=== PATIENT | female | born 1995 | race Caucasian/White ===

== ENCOUNTER 2022-08-02 15:41 | Emergency (ER) | payer OTHER, SELFPAY ==
[2022-08-02 15:54] VITALS: BP 114/62; PULSE 93; RESP 16; TEMP 37.3; O2SAT 99
--- NOTE | 2022-08-02 16:59 | ED.URI ---
HPI - URI/Sore Throat General Chief Complaint: Upper Respiratory Infection Stated Complaint: Sore Throat/Fever/Cough Time Seen by Provider: 08/02/22 16:59 Source: patient and RN notes reviewed Mode of arrival: ambulatory Limitations: no limitations History of Present Illness HPI Narrative: 27-year-old female presenting for complaint headache, body aches, sinus pressure/congestion, cough, fever/chills. onset 2 days ago. Symptoms worsened yesterday. She denies shortness of breath, wheezing, nausea, vomiting, diarrhea. She is taking DayQuil for symptoms. MD elicited complaint: cough Related Data Home Medications Medication Instructions Recorded Confirmed No Home Medications 08/02/22 08/02/22 Allergies Allergy/AdvReac Type Severity Reaction Status Date / Time No Known Allergies Allergy Verified 08/02/22 16:50 Review of Systems Review of Systems: ROS per HPI Exam Narrative: GENERAL: Ill-appearing, nontoxic EYES: PERRLA, conjunctivae clear ENT: Mucous membranes moist. TMs pearly alvarado with dull light reflex bilaterally; no tragal tenderness. Oropharynx normal without lesions or exudate, no drooling, no hoarseness, no trismus, uvula midline. CHEST: Clear to auscultation, breath sounds equal. No wheezing, rhonchi, rales, or stridor. No respiratory distress, speaks in full sentences. HEART: Regular rate and rhythm. No murmur heard. SKIN: Warm, dry, no rash. NEURO: Alert and oriented x3. PSYCH: Normal mood and affect Course Course Emergency Course: Patient is aware of diagnosis, understands and agrees to treatment plan. Anticipatory guidance given. Patient agrees to follow-up as directed and is aware of reasons to seek care at the emergency department. Portions of this record may have been created with voice recognition software Level of Care: Express Care Visit Vital Signs Vital signs: Vital Signs Temperature 99.1 F 08/02/22 15:54 Pulse Rate 93 08/02/22 15:54 Respiratory Rate 16 08/02/22 15:54 Blood Pressure 114/62 08/02/22 15:54 Pulse Oximetry 99 08/02/22 15:54 Oxygen Delivery Room Air 08/02/22 15:54 Temperature 99.1 F 08/02/22 15:54 Pulse Rate 93 08/02/22 15:54 Respiratory Rate 16 08/02/22 15:54 Blood Pressure 114/62 08/02/22 15:54 Pulse Oximetry 99 08/02/22 15:54 Oxygen Delivery Room Air 08/02/22 15:54 reviewed MDM - URI/Sore Throat MDM Narrative Medical decision making narrative: influenza positive. Advised supportive measures and signs/symptoms to go to the ER. Pt is appropriate for outpt treatment and f/u. Differential Diagnosis Differential diagnosis: Likely upper respiratory infection, sinusitis and viral infection Lab Data Labs: Influenza A Screen Positive Reference Range: Negative Influenza B Screen Negative Reference Range: Negative Discharge Plan Discharge Clinical Impression: Influenza Patient Disposition: Home, Self-Care Condition: Stable Instructions: Influenza (ED) Additional Instructions: Influenza positive You should avoid crowds until you are fever free for 24 hours without the use of fever reducing medications, or the symptoms are improved Rest. Drink plenty of fluids. Tylenol 1000mg every 8 hours as needed for pain/fever Recommend Flonase spray and Zyrtec (or Claritin/Maeve) for sinus pressure/congestion over the counter Cough syrup may cause drowsiness; avoid driving or take it at night time. Follow up with your primary care provider as needed in 1-2 weeks Go to the ER for worsening symptoms or concerns Prescriptions: No Action No Home Medications Follow-up/Referrals: PHYSICIAN,MANDOLIN REPAIRER [Primary Care Provider] - Stand Alone Forms: Work/School Release IP Time of Disposition: 17:05
== END 2022-08-02 17:09 | disposition home or self-care (01) ==
PROVIDERS: Emergency Provider Nurse Practitioner Family
DX: J10.1 Influenza due to other identified influenza virus with other respiratory manifestations (principal); Z20.822 Contact with and (suspected) exposure to COVID-19
CPT/HCPCS: 87426; 87804; 99213; C9803; G0463

== ENCOUNTER 2022-11-11 11:04 | Emergency (ER) | payer OTHER, SELFPAY ==
--- NOTE | ~2022-11-11 | XR_ITS ---
EXAMINATION: XR foot LT min 3V DATE: 11/11/2022 11:35 INDICATION: Lateral left foot pain post fall down stairs TECHNIQUE: Dorsoplantar, two oblique and lateral views of the left foot were obtained. COMPARISON: None. FINDINGS: Oblique extra-articular fracture of the mid to distal diaphysis of the left fifth metatarsal. There i s 3 mm dorsal medial displacement with minimal plantar/lateral angulation. Alignment is otherwise nor mal. No other fractures identified. Joint spaces are normal. Soft tissue swelling at the lateral fore foot. IMPRESSION: 1. Mildly displaced and minimally angulated extra articular oblique diaphyseal fracture of the left f ifth metatarsal. Reviewed, dictated and finalized at location A. RITIES LENDING TRADER IMPRESSION: 1. Mildly displaced and minimally angulated extra articular oblique diaphyseal fracture of the left fifth metatarsal.
[2022-11-11 11:25] VITALS: BP 130/75; PULSE 77; RESP 18; TEMP 36.6; O2SAT 97
--- NOTE | 2022-11-11 11:28 | ED.LOWEXIN ---
HPI - Extremity Injury (Lower) General Chief Complaint: Extremity Injury, Lower Stated Complaint: left foot injury History of Present Illness HPI Narrative: patient presents with left foot injury. Patient states she tripped over her dog early this am and now has left foot pain. worse with ambulation. Related Data Home Medications Medication Instructions Recorded Confirmed escitalopram oxalate 20 mg tablet 20 mg PO DAILY 11/11/22 11/11/22 Allergies Allergy/AdvReac Type Severity Reaction Status Date / Time No Known Allergies Allergy Verified 11/11/22 11:12 Review of Systems Review of Systems: CONSTITUTIONAL: Denies fever, chills, or sweats. EYES: Denies visual changes, redness, or discharge. ENT: Denies rhinorrhea, congestion, sore throat, or otalgia. CARDIOVASCULAR: Denies chest pain, palpitations, or edema. RESPIRATORY: Denies cough or dyspnea. GASTROINTESTINAL: Denies abdominal pain, nausea, vomiting, or diarrhea. GENITOURINARY: Denies dysuria or hematuria. SKIN: Denies rash or itching. MUSCULOSKELETAL: Denies back pain, joint pain, or myalgia. NEUROLOGIC: Denies headache, numbness, or weakness. PSYCHIATRIC: Denies anxiety or depression. PMFSH Comments At time of signature, agree with nursing past medical, surgical, social and family history. There is no relevant family history pertinent to the presenting complaint Exam Narrative: GENERAL: Well-appearing, well-nourished, and in no acute distress. HEAD: Normocephalic, atraumatic. EYES: PERRLA and EOMI. ENT: Nares clear, no rhinorrhea or epistaxis. Mucous membranes moist. NECK: Supple. CHEST: Clear to auscultation. No respiratory distress. HEART: Regular rate and rhythm. No murmur heard. Normal peripheral pulses. ABDOMEN: Soft, nontender, nondistended, normal active bowel sounds. EXTREMITIES: Normal range of motion. No edema.left foot SKIN INTACT. NORMAL DP PULSE, NORMAL CAP REFILL. NORMAL SENSATION. SKIN: Warm, dry, no rash. NEURO: No focal deficits. Alert and oriented x3. [place] Coma Scale Eye Opening: Spontaneous 4 [place] Coma Scale Motor: Obeys Commands 6 [place] Coma Scale Verbal: Oriented 5 [place] Coma Scale Total 15 Course Course Level of Care: Express Care Visit Vital Signs Vital signs: Vital Signs Temperature 36.6 C 11/11/22 11:25 Pulse Rate 77 11/11/22 11:25 Respiratory Rate 18 11/11/22 11:25 Blood Pressure 130/75 11/11/22 11:25 Pulse Oximetry 97 11/11/22 11:25 Oxygen Delivery Room Air 11/11/22 11:25 Temperature 36.6 C 11/11/22 11:25 Pulse Rate 77 11/11/22 11:25 Respiratory Rate 18 11/11/22 11:25 Blood Pressure 130/75 11/11/22 11:25 Pulse Oximetry 97 11/11/22 11:25 Oxygen Delivery Room Air 11/11/22 11:25 MDM - Extremity Injury (Lower) Imaging Data My impression: Oblique extra-articular fracture of the mid to distal diaphysis of the left fifth metatarsal. There is 3 mm dorsal medial displacement with minimal plantar/lateral angulation. Alignment is otherwise normal. No other fractures identified. Joint spaces are normal. Soft tissue swelling at the lateral forefoot. IMPRESSION: 1. Mildly displaced and minimally angulated extra articular oblique diaphyseal fracture of the left fifth metatarsal. Radiologist's impression: Oblique extra-articular fracture of the mid to distal diaphysis of the left fifth metatarsal. There is 3 mm dorsal medial displacement with minimal plantar/lateral angulation. Alignment is otherwise normal. No other fractures identified. Joint spaces are normal. Soft tissue swelling at the lateral forefoot. IMPRESSION: 1. Mildly displaced and minimally angulated extra articular oblique diaphyseal fracture of the left fifth metatarsal. Discharge Plan Discharge Clinical Impression: Foot sprain, Foot fracture, left Patient Disposition: Home, Self-Care Condition: Stable Instructions: Toe Fracture (ED), Foot Fracture in Adults (ED), Foot Sprain (ED) Ad
== END 2022-11-11 12:22 | disposition home or self-care (01) ==
PROVIDERS: Emergency Provider Nurse Practitioner Family; PCP Physician Assistant
DX: S92.352A Displaced fracture of fifth metatarsal bone, left foot, initial encounter for closed fracture (principal); S93.602A Unspecified sprain of left foot, initial encounter; W01.0XXA Fall on same level from slipping, tripping and stumbling without subsequent striking against object, initial encounter
CPT/HCPCS: 29515; 73630; 99213; 99214; G0463

== ENCOUNTER 2023-01-15 12:49 | Emergency (ER) | payer OTHER, SELFPAY ==
[2023-01-15 12:54] VITALS: BP 122/74; PULSE 70; RESP 20; TEMP 36.9; O2SAT 98
--- NOTE | 2023-01-15 13:01 | ED.GENADULT ---
HPI - General Adult General Chief complaint: Unspecified Stated complaint: nausea / vomiting / left foot pain Source: patient and RN notes reviewed History of Present Illness HPI narrative: 27 yo F presents to urgent care with complaints of intermittent nausea and vomiting for the last couple weeks. Pt is also having intermittent left foot swelling for the last couple weeks. Pt states she broke this foot 2 months ago but denies any other recent injury. Pt denies any calf pain or swelling. Pt denies any fevers, chills, diarrhea, abdominal pain, chest pain, or SOB. 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 Related Data Home Medications Medication Instructions Recorded Confirmed escitalopram oxalate 20 mg tablet 20 mg PO DAILY 11/11/22 01/15/23 Allergies Allergy/AdvReac Type Severity Reaction Status Date / Time No Known Allergies Allergy Verified 12/13/22 08:39 Review of Systems Review of Systems: Pertinent positives and pertinent negatives per HPI. PMFSH Past Medical History Medical History Depression Fracture of fifth metatarsal bone of left foot IUD (intrauterine device) in place Surgical History Surgical History Hx of breast reduction, elective Family History Family History Other Asthma Depression Hypertension Social History Social History Smoking status: Never smoker Alcohol intake: current Comments At the time of my signature, I reviewed and agree with the nursing past medical, surgical, social, and family history. There is no relevant family history pertinent to the patient complaint. Exam Narrative: GENERAL: This is a well-nourished, well-developed patient, in no apparent distress. HEAD: normocephalic, atraumatic. EYES: Sclera clear/white. Vision is grossly intact. NOSE: External nose normal with no obvious nasal discharge, nares without redness, no rhinorrhea. THROAT: Mucous membranes moist, posterior pharynx clear. NECK: Neck supple, non-tender without lymphadenopathy, masses or thyromegaly. CARDIOVASCULAR: Regular rate and rhythm without murmurs, gallops, or rubs. RESPIRATORY: Clear to auscultation. Breath sounds equal bilaterally. No wheezes, rales, or rhonchi. GASTROINTESTINAL: Abdomen soft, non-tender, nondistended. Bowel sounds are active. No hepato-splenomegaly, or palpable masses. No guarding. SKIN: warm, intact with no suspicious lesions or rash, good texture and turgor. NEURO: awake, alert, and oriented to person, place and time. There were no obvious focal neurologic abnormalities. EXTREMITIES: Mild swelling to left dorsal foot. no calf swelling or tenderness. Course Course Level of Care: Express Care Visit Vital Signs Vital signs: Vital Signs Temperature 98.5 F 01/15/23 12:54 Pulse Rate 70 01/15/23 12:54 Respiratory Rate 20 01/15/23 12:54 Blood Pressure 122/74 01/15/23 12:54 Pulse Oximetry 98 01/15/23 12:54 Oxygen Delivery Room Air 01/15/23 12:54 Temperature 98.5 F 01/15/23 12:54 Pulse Rate 70 01/15/23 12:54 Respiratory Rate 20 01/15/23 12:54 Blood Pressure 122/74 01/15/23 12:54 Pulse Oximetry 98 01/15/23 12:54 Oxygen Delivery Room Air 01/15/23 12:54 Reviewed Medical Decision Making MDM Narrative Medical decision making narrative: Take the Zofran as directed if needed. Focus on stress reduction with mediation, exercise, and healthy diet. If nausea persists, you will need to go to the ER or contact your furniture finisher helper for further evaluation. Wear compression stockings when you're going to be on your feet for prolonged periods of time. Try and elevate your legs as much as possible. Monitor for any
== END 2023-01-15 13:34 | disposition home or self-care (01) ==
PROVIDERS: Emergency Provider Nurse Practitioner Family; PCP Physician Assistant
DX: R11.0 Nausea (principal); R60.9 Edema, unspecified; F32.A Depression, unspecified
CPT/HCPCS: 81025; 99212; G0463

== ENCOUNTER 2023-07-14 12:00 | Emergency (ER) | payer OTHER, SELFPAY ==
--- NOTE | 2023-07-14 12:11 | ED.EAR ---
HPI - Ear Problem General Chief complaint: Ear Stated complaint: Right Ear Pain History of Present Illness HPI Narrative: Patient presents with right ear pain. Patient states she was diagnosed 6 days ago for right ear infection and has been on antibiotics since then. Patient states the pain is much better but she has a feeling of fullness in her ears. No fever no drainage from her ear Related Data Home Medications Medication Instructions Recorded Confirmed escitalopram oxalate 20 mg tablet 20 mg PO DAILY 11/11/22 01/15/23 Tessalon Perles 07/14/23 amoxicillin 07/14/23 tramadol 07/14/23 Allergies Allergy/AdvReac Type Severity Reaction Status Date / Time No Known Allergies Allergy Verified 12/13/22 08:39 Review of Systems Review of Systems: CONSTITUTIONAL: Denies chills, or sweats. Reports fever and generalized body aches EYES: Denies visual changes, redness, or discharge. ENT: Denies otalgia. Reports nasal congestion runny nose and sore throat CARDIOVASCULAR: Denies chest pain, palpitations, or edema. RESPIRATORY: Denies dyspnea. Reports occasional cough GASTROINTESTINAL: Denies abdominal pain, nausea, vomiting, or diarrhea. GENITOURINARY: Denies dysuria or hematuria. SKIN: Denies rash or itching. MUSCULOSKELETAL: Denies back pain, joint pain, or myalgia. Reports generalized body aches NEUROLOGIC: Denies headache, numbness, or weakness. PSYCHIATRIC: Denies anxiety or depression. PMFSH Past Medical History Medical History Depression Fracture of fifth metatarsal bone of left foot IUD (intrauterine device) in place Surgical History Surgical History Hx of breast reduction, elective Family History Family History Other Asthma Depression Hypertension Social History Social History Smoking status: Never smoker Alcohol intake: current Comments At time of signature, agree with nursing past medical, surgical, social and family history. There is no relevant family history pertinent to the presenting complaint Exam Narrative: The patient is a well-developed, well-nourished in no acute distress. SKIN: Skin is warm and dry without erythema, swelling or exudate. There is good turgor. No tenting. HEAD: Atraumatic. Normocephalic. No temporal or scalp tenderness. EYES: Moist and bright. Sclera and conjunctivae normal. No discharge. PERRLA. Extraocular motions intact. Gross visual acuity intact. EARS: Pinna is normal shape and contour. Clear external auditory canals. TM pearly jenkins with good cone of light, no erythema or suppuration. Bilateral cerumen noted no gross hearing deficit. NOSE: pink, moist mucosa with good air movement. Clear rhinorrhea without nasal flaring. Septum midline. Mouth: moist mucous membranes. THROAT; mild erythema noted to posterior oropharynx with moderate postnasal drainage. Without exudate or ulceration.. Uvula midline. Normal movement of soft palate. NECK: Supple and nontender with full range of motion without discomfort. No meningeal signs. LUNGS: Equal and bilateral breath sounds without wheezes, rales or rhonchi. CHEST: The chest wall is without retractions or use of accessory muscles. HEART: Has a regular rate and rhythm without murmur, gallops, click or rub. ABDOMEN: Soft, nontender with positive active bowel sounds. No rebound tenderness. EXTREMITIES: Without cyanosis, clubbing or edema. Equal 2+ distal pulses and 2 second capillary refill noted. NEUROLOGIC: alert, active, . The patient moves all extremities with normal muscle strength. Normal muscle tone is noted. Normal coordination is noted. NO focal neurological findings noted. Course Course Level of Care: Express Care Visit Discharge Plan Discharge Clinical Impression: Eustachian tube dysfunction Patient Disposition: Home, Self-Ca
[2023-07-14 12:13] VITALS: BP 142/83; PULSE 61; RESP 16; TEMP 36.2; O2SAT 96
== END 2023-07-14 12:20 | disposition home or self-care (01) ==
PROVIDERS: Emergency Provider Nurse Practitioner Family; PCP Physician Assistant
DX: H69.91 Unspecified Eustachian tube disorder, right ear (principal); Z79.899 Other long term (current) drug therapy; Z79.891 Long term (current) use of opiate analgesic
CPT/HCPCS: 99213; G0463

== ENCOUNTER 2023-10-22 12:58 | Emergency (ER) | payer OTHER, SELFPAY ==
[2023-10-22 13:00] VITALS: BP 125/84; PULSE 99; RESP 16; TEMP 37.3; O2SAT 99
--- NOTE | 2023-10-22 13:45 | ED.GENADULT ---
HPI - General Adult General Chief complaint: Urogenital-Female Stated complaint: STD Exposure Time Seen by Provider: 10/22/23 13:46 Source: patient Mode of arrival: ambulatory Limitations: no limitations History of Present Illness HPI narrative: 28-year-old female presented for concern for STD exposure. 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 patient denies a current outbreak of any lesions for herself or her partner. Patient denies any vaginal discharge, itching, or lesions. Related Data Allergies Allergy/AdvReac Type Severity Reaction Status Date / Time No Known Allergies Allergy Verified 12/13/22 08:39 Review of Systems Review of Systems: CONSTITUTIONAL: Denies body aches, fever, chills, or sweats. EYES: Denies visual changes, redness, or discharge. ENT: Denies rhinorrhea, congestion, sore throat, or otalgia. CARDIOVASCULAR: Denies chest pain, palpitations, or edema. RESPIRATORY: Denies cough or dyspnea. GASTROINTESTINAL: Denies abdominal pain, nausea, vomiting, or diarrhea. GENITOURINARY: Denies dysuria or hematuria. SKIN: Denies rash, itching, or wounds. MUSCULOSKELETAL: Denies back pain, joint pain, or myalgia. NEUROLOGIC: Denies headache, numbness, tingling, or weakness. PSYCH: Denies depression or anxiety. All systems reviewed & are unremarkable except as noted in HPI and below PMFSH Past Medical History Medical History Depression Fracture of fifth metatarsal bone of left foot IUD (intrauterine device) in place Surgical History Surgical History Hx of breast reduction, elective Family History Family History Other Asthma Depression Hypertension Social History Social History Smoking status: Never smoker Alcohol intake: current Comments At time of signature, I have reviewed and agree with nursing past medical, surgical, social and family history unless otherwise noted. Please see nursing chart for further information. There is no relevant family history pertinent to the presenting complaint Exam Narrative: GENERAL: Well-appearing EYES: EOMI. No redness or drainage. Conjunctivae normal. ENT: Mucous membranes pink and moist. CHEST: No respiratory distress. Clear to auscultation. HEART: Regular rate and rhythm. No murmur appreciated. Normal peripheral pulses. ABDOMEN: Soft, nontender, nondistended, normal active bowel sounds. SKIN: Warm, dry, no rash. Capillary refill normal. Normal skin turgor. NEURO: No focal deficits. Alert and oriented x3. Gait steady. PSYCH: Normal affect. Course Course Emergency Course: Patient is aware of diagnosis, understands and agrees to treatment plan. Anticipatory guidance given. Patient agrees to follow-up as directed and is aware of reasons to seek care at the emergency department. Portions of this record may have been created with voice recognition software Level of Care: Express Care Visit Vital Signs Vital signs: Vital Signs Temperature 99.1 F 10/22/23 13:00 Pulse Rate 99 10/22/23 13:00 Respiratory Rate 16 10/22/23 13:00 Blood Pressure 125/84 10/22/23 13:00 Pulse Oximetry 99 10/22/23 13:00 Oxygen Delivery Room Air 10/22/23 13:00 Temperature 99.1 F 10/22/23 13:00 Pulse Rate 99 10/22/23 13:00 Respiratory Rate 16 10/22/23 13:00 Blood Pressure 125/84 10/22/23 13:00 Pulse Oximetry 99 10/22/23 13:00 Oxygen Delivery Room Air 10/22/23 13:00 Medical Decision Making MDM Narrative Medical decision making narrative: Discussed HSV testing with patient, she will follow-up with her PCP or OBGYN For blood testing as she denies active lesions. Pt states she would like testing for other std's as she states her partner has been lying. Urine specimen colle
[2023-10-22 19:41] LABS: Trichomonas Vag PCR NOT DETECTED (NOT DETECTE)
[2023-10-22 20:04] LABS: Chlamydia trachomatis NOT DETECTED (NOT DETECTE); Neisseria gonorrhoeae PCR NOT DETECTED (NOT DETECTE)
== END 2023-10-22 14:07 | disposition home or self-care (01) ==
PROVIDERS: Emergency Provider Nurse Practitioner Family; PCP Physician Assistant
DX: Z20.2 Contact with and (suspected) exposure to infections with a predominantly sexual mode of transmission (principal)
CPT/HCPCS: 87491; 87591; 87661; 99214; G0463

== ENCOUNTER 2023-12-26 19:17 | Emergency (ER) | payer OTHER, SELFPAY ==
[2023-12-26 19:28] VITALS: BP 115/76; PULSE 72; RESP 18; TEMP 36.8; O2SAT 99
--- NOTE | 2023-12-26 19:56 | ED.FEMALEGU ---
HPI - Female Genitourinary General Chief complaint: Urogenital-Female Stated complaint: Poss uti Source: patient and RN notes reviewed Mode of arrival: ambulatory Limitations: no limitations History of Present Illness HPI Narrative: 28-year-old female presented for complaint of burning with urination over the past few days. She endorses skin feels irritated and itching. Shower water causes burning sensation. Patient denies concern for STDs, stating she was recently tested for everything and was negative. Denies history of HSV. denies hematuria, nausea, vomiting, abdominal pain, flank pain, constipation, diarrhea, fevers or chills. currently on menses. Recently had IUD placed. Scheduled with OBGYN 01/01/24. Related Data Home Medications Medication Instructions Recorded Confirmed paroxetine HCl 20 mg tablet 20 mg PO DAILY 12/26/23 12/26/23 Allergies Allergy/AdvReac Type Severity Reaction Status Date / Time No Known Allergies Allergy Verified 12/26/23 19:39 Review of Systems Review of Systems: CONSTITUTIONAL: Denies body aches, fever, chills, or sweats. CARDIOVASCULAR: Denies chest pain, palpitations, or edema. RESPIRATORY: Denies cough or dyspnea. GASTROINTESTINAL: Denies abdominal pain, nausea, vomiting, or diarrhea. GENITOURINARY: Reports dysuria, Denies frequency, urgency, hematuria, flank pain SKIN: Denies rash, itching, or wounds. MUSCULOSKELETAL: Denies back pain or myalgia. [facility] Past Medical History Medical History Depression Fracture of fifth metatarsal bone of left foot IUD (intrauterine device) in place Surgical History Surgical History Hx of breast reduction, elective Family History Family History Other Asthma Depression Hypertension Social History Social History Smoking status: Never smoker Alcohol intake: current Comments At time of signature, I have reviewed and agree with nursing past medical, surgical, social and family history unless otherwise noted. Please see nursing chart for further information. There is no relevant family history pertinent to the presenting complaint Exam Narrative: GENERAL: Well-appearing and in no acute distress. ENT: Mucous membranes pink and moist. NECK: Normal AROM. Supple. CHEST: No respiratory distress. Clear to auscultation. HEART: Regular rate and rhythm. ABDOMEN: Soft, nontender, nondistended, normal active bowel sounds. No CVA tenderness SKIN: Warm, dry, no rash. NEURO: No focal deficits. Alert and oriented x3. Gait steady. PSYCH: Normal affect. Course Course Emergency Course: Patient is aware of diagnosis, understands and agrees to treatment plan. Anticipatory guidance given. Patient agrees to follow-up as directed and is aware of reasons to seek care at the emergency department. Portions of this record may have been created with voice recognition software Level of Care: Express Care Visit Vital Signs Vital signs: Vital Signs Temperature 98.2 F 12/26/23 19:28 Pulse Rate 72 12/26/23 19:28 Respiratory Rate 18 12/26/23 19:28 Blood Pressure 115/76 12/26/23 19:28 Pulse Oximetry 99 12/26/23 19:28 Oxygen Delivery Room Air 12/26/23 19:28 Temperature 98.2 F 12/26/23 19:28 Pulse Rate 72 12/26/23 19:28 Respiratory Rate 18 12/26/23 19:28 Blood Pressure 115/76 12/26/23 19:28 Pulse Oximetry 99 12/26/23 19:28 Oxygen Delivery Room Air 12/26/23 19:28 Reviewed MDM - Female Genitourinary MDM Narrative Medical decision making narrative: Results of urine reviewed with patient. Patient declined exam. Rx Macrobid and fluconazole. Advised to follow-up with OBGYN as scheduled next week. Discussed physical exam findings. Advised supportive measures and signs/symptoms to go to the ER. Pt is appropri
== END 2023-12-26 20:07 | disposition home or self-care (01) ==
PROVIDERS: Emergency Provider Nurse Practitioner Family; PCP Physician Assistant
DX: R30.0 Dysuria (principal); F32.A Depression, unspecified
CPT/HCPCS: 81003; 87086; 99213; G0463

== ENCOUNTER 2024-05-08 08:06 | Emergency (ER) | payer OTHER, MEDICAID, SELFPAY ==
--- NOTE | ~2024-05-08 | XR_ITS ---
XR ankle LT min 3V 05/08/2024 08:36 INDICATION: Ankle pain PROCEDURE: 4 views left ankle COMPARISON: 12/13/2022 FINDINGS: Fracture, dislocation or subluxation is not identified. Mild lateral soft tissue swelling. Small degenerative calcaneal enthesophytes. No foreign bodies are identified. IMPRESSION: 1: NO ACUTE BONE OR JOINT ABNORMALITY IDENTIFIED. Reviewed, dictated and finalized at location B.
--- NOTE | 2024-05-08 08:14 | ED.LOWEXIN ---
HPI - Extremity Injury (Lower) General Chief Complaint: Extremity Injury, Lower Stated Complaint: Left Ankle Pain Time Seen by Provider: 05/08/24 08:20 Source: patient, RN notes reviewed and old records reviewed Mode of arrival: ambulatory (crutches) Limitations: no limitations History of Present Illness HPI Narrative: 29 year old female presents to express care with complaints of left ankle pain increase or the past 3 days. 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 Patient reports that she had a fracture of her 5th metatarsal in the past and has had occasional incidents of pain in her left lateral ankle since then which usually will resolve after rest and icing and Ibuprofen. MD complaint: other (ankle pain) Onset (ago): day(s) (3) Severity: mild Relieving factors: rest and other (elevation, ice, Ibuprofen) Treatments prior to arrival: cold therapy and other Related Data Home Medications Medication Instructions Recorded Confirmed paroxetine HCl 20 mg tablet 20 mg PO DAILY 12/26/23 05/08/24 levonorgestrel 21 mcg/24 hr (up to 1 device intrauterine ONCE 05/08/24 05/08/24 8 years) 52 mg intrauterine device (Mirena) Allergies Allergy/AdvReac Type Severity Reaction Status Date / Time No Known Allergies Allergy Verified 05/08/24 08:23 Review of Systems Review of Systems: CONSTITUTIONAL: Denies fever, chills, or sweats. EYES: Denies visual changes, redness, or discharge. ENT: Denies rhinorrhea, congestion, sore throat, or otalgia. CARDIOVASCULAR: Denies chest pain, palpitations, or edema. RESPIRATORY: Denies cough or dyspnea. GASTROINTESTINAL: Denies abdominal pain, nausea, vomiting, or diarrhea. GENITOURINARY: Denies dysuria or hematuria. SKIN: Denies rash or itching. MUSCULOSKELETAL: Denies back pain,positive left ankle lateral pain intermittent at times with swelling, or myalgia. NEUROLOGIC: Denies headache, numbness, or weakness. PSYCHIATRIC: Reports history of anxiety or depression. All systems reviewed & are unremarkable except as noted in HPI and below PMFSH Past Medical History Medical History Depression Fracture of fifth metatarsal bone of left foot IUD (intrauterine device) in place Surgical History Surgical History Hx of breast reduction, elective Family History Family History Other Asthma Depression Hypertension Social History Social History Smoking status: Never smoker Alcohol intake: current Comments At time of signature, agree with nursing past medical, surgical, social and family history. There is no relevant family history pertinent to the presenting complaint Exam Narrative: GENERAL: Well-appearing, well-nourished, and in no acute distress. HEAD: Normocephalic, atraumatic. EYES: PERRLA and EOMI. ENT: Nares clear, no rhinorrhea or epistaxis. Mucous membranes moist.TM's normal throat pink with no lesions or swelling NECK: Supple. CHEST: Clear to auscultation. No respiratory distress. HEART: Regular rate and rhythm. No murmur heard. Normal peripheral pulses. ABDOMEN: Soft, nontender, nondistended, normal active bowel sounds. EXTREMITIES: Normal range of motion.lateral edema to left ankle with some tenderness across calcaneus, Patient reports interval of this type of pain since fracture of left 5th metatarsal year ago, noticeable lateral ankle swelling. no specific recent injury to ankle SKIN: Warm, dry, no rash. NEURO: No focal deficits. Alert and oriented x3. Course Course Emergency Course: Patient is aware of diagnosis, understands and agrees to treatment plan.? Anticipatory g
[2024-05-08 08:15] VITALS: BP 108/63; PULSE 64; RESP 16; TEMP 36.8; O2SAT 98
== END 2024-05-08 09:00 | disposition home or self-care (01) ==
PROVIDERS: Emergency Provider Registered Nurse
DX: M25.472 Effusion, left ankle (principal); M25.572 Pain in left ankle and joints of left foot; F32.A Depression, unspecified
CPT/HCPCS: 73610; 99213; G0463

== ENCOUNTER 2024-11-15 11:45 | Emergency (ER) | payer BC, SELFPAY ==
--- NOTE | ~2024-11-15 | XR_ITS ---
Left foot Technique: AP, oblique, and lateral views were obtained. Clinical History: Fifth metatarsal pain Findings: There are acute, transverse, nondisplaced fracture the distal third and fourth metatarsal n ecks. Old, healed fracture of fifth metatarsal noted. Joint spaces are preserved without erosive or d egenerative change. Soft tissues are unremarkable. Impression: Acute, transverse, nondisplaced fractures of the distal third and fourth metatarsal necks. Reviewed, dictated and finalized at location M. Impression: Acute, transverse, nondisplaced fractures of the distal third and fourth metata rsal necks.
--- OUTSIDE RECORDS SUMMARY | 2024-11-15 11:47 | XMS_ITS | Clinical Summary ---
Author Organization [facility] Address [address] [place] [address] Care Team Providers Care Family Services Worker Name Role Phone Reuben Goff MD Primary Care Provider [phone] Source Comments [facility],non-owned Affiliates and Associated Physician Practices is amultiple site organization consisting of ambulatory clinics and hospital sitesin [place], [place], [place] and [place]. This disclosure is being madepursuant to the Care Everywhere program and may not contain all information available regarding this patient. Last updated 18.[facility] Allergies No known active allergies Medications * Be aware that medications may not be up to date on this document. Alwaysverify current medications with the patient. Medication Sig Dispensed Refills Start Date End Date Status levonorgestrel (MIRENA) 20 MCG/24HR IUD 1 Each by Intrauterine route Active albuterol HFA (PROVENTIL;VENTOLIN ;PROAIR) 108 (90 BASE) MCG/ACT inhalerIndications: Asthma with acute exacerbation, unspecified asthma severity, unspecified whether persistent (HCC) Inhale 2 puffs by mouth every 4 hours as needed for Shortness of Breath, Wheezing or Cough 1 Inhaler 08/29/2018 Active escitalopram (LEXAPRO) 20 MG tablet Take 20 mg by mouth once daily 03/17/2020 Active buPROPion XL 24hr (WELLBUTRIN-XL) 150 MG tablet Take 150 mg by mouth once daily 03/10/2021 Active Active Problems No known active problems Family History Medical History Relation Name Comments Hypertension Mother Relation Name Status Comments Mother Social History Tobacco Use Types Packs/Day Years Used Date Smoking Tobacco: Never Smokeless Tobacco: Never Tobacco Cessation:Counseling Given: Yes Alcohol Use Standard Drinks/Week Comments Yes 0 (1 standard drink = 0.6 oz pur e alcohol) Sex and Gender Information Value Date Recorded Sex Assigned at Not on file Gender Identity Not on file Sexual Orientation Not on file Last Filed Vital Signs Vital Sign Reading Time Taken Comments Blood Pressure 124/86 02/20/2022 2:39 PM CDT Pulse 69 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 Temperature 36.3 C (97.3 F) 06/29/2020 11:36 AM CDT Respiratory Rate 16 12/12/2016 12:06 PM CDT Oxygen Saturation 97% 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 Inhaled Oxygen Concentration - - Weight 108.4 kg (239 lb) 02/20/2022 2:39 PM CDT Height 162.6 cm (5' 4 ) 02/20/2022 2:39 PM CDT Body Mass Index 41.02 02/20/2022 2:39 PM CDT Plan of Treatment Health Maintenance Due Date Last Done Comments DTAP/TDAP/TD VACCINES (1 - Tdap) 2013 HEPATITIS B VACCINE (1 of 3 - 19+ 3-dose series) 2013 PAP SMEAR 12/12/2021 12/12/2018 COVID-19 VACCINE ( - 2023-2 5 season) 2024 INFLUENZA VACCINE (#1) 2024 DEPRESSION SCREENING 09/03/2024 ZOSTER VACCINE (1 of 2) 2044 HEPATITIS C SCREENING Completed 06/29/2020 HIV SCREENING Completed 06/29/2020 HIB VACCINE Aged Out No longer eligi ble based on patient's age to complete this topic HPV VACCINE Aged Out No longer eligi ble based on patient's age to complete this topic MENINGOCOCCAL (Group B) VACC INE SHARED DECISION-MAKING Aged Out No longer eligibl e based on patient's age to complete this topic MENINGOCOCCAL GROUPS A/C/Y/W VACCINE Aged Out No longer eligible b ased on patient's age to complete this topic PNEUMOCOCCAL VACCINE Aged Out No long er eligible based on patient's age to complete this topic Procedures Procedure Name Priority Date/Time Associated Diagnosis Comments HEPATITIS C AB W/RFLX TO HCV RNA QN PCR Routine 06/29/2020 11:53 AM CDT Screen for STD (sexually transmitted disease) HIV-1 HIV-2 ANTIBODY + HIV P24 AG PANEL Routine 06/29/2020 11:53 AM CDT Screen for STD (sexually transmitted disease) PAP IMAGE-GUIDED RFLX HPV+CT/NG Routine 12/12/2018 11:12 AM CDT Well woman exam with routine gynecological exam from Last 3 Months or Most Recently Relevant to Health Maintenance Results * HEPATITIS C AB W/RFLX TO HCV RNA QN PCR (06/29/2020 11:53 AM CDT) Hepatitis C Antibody NON-REACTI VE NON-REACT [facility]A [facility] Signal to Cut-Off 0.01 <1.00 [facility] Comment: HCV antibody was non-reactive. There is no laboratory evidence of HCV infection. In most cases, no further action is required. However, if recent HCV exposure is suspected, a test for HCV RNA (test code 86925) is suggested. For additional information please refer to http://education.Spaces 2 [employer]/faq/KYG65j8 (This link is being provided for informational/ educational purposes only.) Test Performed at: [facility] [address] [place] [address] BERNARD FREITAS DO,MPH Blood BLOOD SPECIMEN / Unknown 06/29/2020 11:53 AM CDT 06/29/2020 11:53 AM CDT Maru Maria APRN-CNM LAB - CHEM ISTRY ORDERABLES [facility] [address] [place] [address] * HIV-1 HIV-2 ANTIBODY + HIV P24 AG PANEL (06/29/2020 11:53 AM CDT) HIV Screen 4th Generation w Reflex NON-REACT LUCITA NON-REACT [facility]A [facility] Comment: HIV-1 antigen and HIV-1/HIV-2 antibodies were not detected. There is no laboratory evidence of HIV infection. PLEASE NOTE: This information has been disclosed to you from records whose confidentiality may be protected by state law. If your state requires such protection, then the state law prohibits you from making any further disclosure of the information without the specific written consent of the person to whom it pertains, or as otherwise permitted by law. A general authorization for the release of medical or other information is NOT sufficient for this purpose. For additional information please refer to http://education.Spaces 2 Host/faq/PBF120 (This link is being provided for informational/ educational purposes only.) The performance of this assay has not been clinically validated in patients less than 2 years old. Test Performed at: [facility] [address] [place] [address] BERNARD FREITAS DO,MPH Blood BLOOD SPECIMEN / Unknown 06/29/2020 11:53 AM CDT 06/29/2020 11:53 AM CDT Maru Freeman Crow WATER FILTRATION TECHNICIAN-CNM LAB - CHEM ISTRY ORDERABLES Performing Organization Address City/State/[facility] Co de Phone Number [facility] [address] [place] [address] * PAP IMAGE-GUIDED LIQUID BASE RFLX HPV+CT/NG (12/12/2018 11:12 AM CDT) Case Report Gynecologic Cytology Report Case: [id number] Authorizing Provider: Ivett Ray, Collected: 12/12/2018 11:12 AM Ordering Location: [facility] Obstetrics Received: 12/13/2018 11:12 AM [facility]cology [facility] Screen: Rick Cortez Specimen: THINPREP - IMAGE GUIDED, Endocervix 12/18/2018 1:15 PM CDT [facility] LMP n/a 12/18/2018 1:15 PM CDT [facility] Menstrual Status Mirena 12/19/19 19 1:15 PM CDT [facility] Specimen Adequacy Satisfactory for evaluation, endocervical/trans formation zone component present. 12/18/2018 1:15 PM CDT [facility] Categorization Negative for intraepithelial lesion or malignancy. 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 12/18/2018 1:15 PM CDT [facility] Pap Footnote This specimen was evaluated by the [employer] Imaging System along with the an additional manual rescreening by a relief worker and/or pathologist. 12/18/2018 1:15 PM CDT [facility] Embedded Images 9 1:15 PM CDT [facility] Pathology/Cytolo gy ENTIRE ENDOCERVIX / Unknown 12/12/2018 11:12 AM CDT 12/13/2018 11:12 AM CDT Ivett Ray MD LAB - PATHOL OGY/CYTOLOGY ORDERABLES [facility] LAB [address] [place], [place] [id number] [place] [address] from Last 3 Months or Most Recently Relevant to Health Maintenance Care Teams Family Services Worker Relationship Specialty Start Date End Date Reuben Goff MD [address] [place] [address] PCP - General 02/14/18
--- OUTSIDE RECORDS SUMMARY | 2024-11-15 11:47 | XMS_ITS | Referral Summary ---
Author Organization [facility] Address [address] [place] [address] Care Team Providers Care Drug Abuse Worker Name Role Phone Reuben Goff MD Primary Care Provider [phone] Source Comments [facility],non-owned Affiliates and Associated Physician Practices is amultiple site organization consisting of ambulatory clinics and hospital sitesin [place], [place], [place] and [place]. This disclosure is being madepursuant to the Care Everywhere program and may not contain all information available regarding this patient. 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 For additional information please refer to http://education.Reach [employer]othing/faq/EAY24s5 (This link is being provided for informational/ educational purposes only.) Test Performed at: [facility] [address] [address] BERNARD FREITAS DO,MPH Blood BLOOD SPECIMEN / Unknown 06/29/2020 11:53 AM CDT 06/29/2020 11:53 AM CDT Maru Maria BILLBOARD MECHANIC-CNM LAB - CHEM ISTRY ORDERABLES Performing Organization Address [facility] Co de Phone Number [facility] [phone] [place] [address] * HIV-1 HIV-2 ANTIBODY + HIV P24 [...] purpose. For additional information please refer to http://VibeWrite.DrEd Online Doctor.[employer]/faq/LPH098 (This link is being provided for informational/ educational purposes only.) The performance of this assay has not been clinically validated in patients less than 2 years old. Test Performed at: [facility] [address] [employer] [address] BERNARD FREITAS DO,MPH Blood BLOOD SPECIMEN / Unknown 06/29/2020 11:53 AM CDT 06/29/2020 11:53 AM CDT Maru Fernandezregan Maria BILLBOARD MECHANIC-CNM LAB - CHEM ISTRY ORDERABLES Performing Organization Address [facility]/[place] [address] * PAP IMAGE-GUIDED LIQUID BASE RFLX HPV+CT/NG (12/12/2018 11:12 AM CDT) Case Report Gynecologic Cytology Report Case: [id number] Authorizing Provider: Ivett Ray, Collected: 12/12/2018 11:12 AM Ordering Location: [facility] Obstetrics Received: 12/13/2018 11:12 AM Gynecology and [facility] Screen: Rick Coretz Specimen: THINPREP - IMAGE GUIDED, Endocervix 12/18/2018 [...] 1:15 PM CDT [facility] 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 12/18/2018 1:15 PM CDT [facility] Pap Footnote This specimen was evaluated by the ThinPrep Imaging System along with the an additional manual rescreening by a boxcar weigher and/or pathologist. 12/18/2018 1:15 PM CDT [facility] Embedded Images 9 1:15 PM CDT [facility] Pathology/Cytolo gy ENTIRE ENDOCERVIX / Unknown 12/12/2018 11:12 AM CDT 12/13/2018 11:12 AM CDT Ivett Ray MD LAB - PATHOL OGY/CYTOLOGY ORDERABLES [facility] [address] [place] [address], [facility] [phone] from Last 3 Months or Most Recently Relevant to Health Maintenance Care Teams Drug Abuse Worker Relationship Specialty Start Date End Date Reuben Goff MD [address] [place] [address] PCP - General 02/14/18
--- OUTSIDE RECORDS SUMMARY | 2024-11-15 11:47 | XMS_ITS | Data Portability ---
Author Organization [facility] Address [address] [place] [address] Assessment No assessment recorded. Plan of Treatment Reminders Order Date Submit Date Provider Last Modified By Organization Details Last Modified Time Details Appointments None record ed. Lab pregna ncy test, urine 2023 024 [email or web address] In-Office Order, Internal Use Only DO Not Attach Compendium DO Not Attach Compendium, Do Not Delete/merge, [id number] 14:10:53 pregna ncy test, urine 2023 024 [email or web address] In-Office Order, Internal Use Only DO Not Attach Compendium DO Not Attach Compendium, Do Not Delete/merge, [id number] 12:32:11 vagina l pathog ens panel, CHRIS+pr obe, vagina l fluid 2023 024 RON [facility], [address], [place], [address], 4 07:13:24 pap, IG + HPV, cervic al 2023 024 RON [facility], [address], [place], [address], 4 10:09:40 Referral None record ed. Procedures insert ion, intrau terine device (PROC) 2023 024 [email or web address] Not available 4 13:16:02 remova l, intrau terine device (PROC) 2023 024 [email or web address] Not available 12:36:11 Surgeries None record ed. Imaging None record ed. Medication Orders Mirena 21 mcg/24 hr (up to 8 years) 52 mg intrau terine device 2023 [email or web address] [id number], [address] [facility], [place], [address], 14:10:52 Prenat al 28 mg iron-8 00 mcg tablet 2023 RON [facility], [address] [facility], [place], [address], 10:02:22 Patient TargetsNo targets recorded. Patient Instructions Encounter Date Encounter Id Patient Instructions Last Modified By Organization Details Last Modified Time 08/16/2023 [id number] A healthy lifestyle: care instructions [email or web address] Not available 08/18/2023 19:08:19 Attending Physician Addendum I did not personally see or examine the patient with the resident. I was physically present to provide indirect supervision through entire encounter. I have reviewed the documentation and agree with the history, physical findings, work-up, and medical decision making as recorded. Pt plans to return to clinic for IUD exchange. Taylor Hurtado MD [email or web address] Not available 08/20/2023 16:28:33 12/17/2023 [id number] Attending Physician Attestation I personally saw and examined the patient with the resident. I was physically present during the entire procedure and provided direct supervision throughout procedure duration. have reviewed the documentation and agree with the history, physical findings, work-up, and medical decision making as recorded. Nadege Purdy MD [email or web address] Not available 12/17/2023 11:34:26 Reason for Referral None Reported. Results Created Date Observation Date Name Description Value Unit Range Abnormal Flag Note LastModifiedBy Organization Detail LastModifiedTime 09/05/19 24 09/06/2023 NUSWA B VAGIN ITIS PLUS (VG+) atopobium vaginae High - 2 score abnormal Not Available [facility] ([facility]) [address] [facility], [place], [address], 09/07/2023 07:13:24 09/05/19 24 09/06/2023 NUSWA B VAGIN ITIS PLUS (VG+) bvab 2 High - 2 score abnormal Not Available [facility] ([facility]) [address] [place], [address], 09/07/2023 07:13:24 09/05/19 24 09/06/2023 NUA B VAGIN ITIS PLUS (VG+) megasphaera 1 High - 2 score abnormal Calcu late total score by keyonin g the 3 indiv idual bacte rial vagin osis (BV) marke r score s toget her. Total score is inter prete d as follo ws: Total score 0-1: Indic ates the absen ce of BV. Total score 2: Indet ermin ate for BV. Addit ional clini thierry data shoul d be evalu ated to estab juarez a diagn osis. Total score 3-6: Indic ates the prese nce of BV. This test was devel oped and its perfo rmanc e yamile cteri stics deter mined by [facility]. It has not been clear ed or appro tracy by the Food and Drug Admin istra tion. Not Available [facility] ([facility]) [address] [facility], [place], [address], 09/07/2023 07:13:24 09/05/19 24 09/06/2023 NUA B VAGIN ITIS PLUS (VG+) massimo albicans, CHRIS Negati ve negati ve Not Available [facility] ([facility]) [address] [place], [address], 09/07/2023 07:13:24 09/05/19 24 09/06/2023 NUA B VAGIN ITIS PLUS (VG+) massimo glabrata, CHRIS Negati ve negati ve Not Available [facility] ([facility]) [address] [place], [address], 09/07/2023 07:13:24 09/05/19 24 09/07/2023 NUA B VAGIN ITIS PLUS (VG+) trich vag by CHRIS Negati ve negati ve Not Available [facility] ([facility]) [address] [place], [address], 09/07/2023 07:13:24 09/05/19 24 09/07/2023 NUA B VAGIN ITIS PLUS (VG+) chlamydia trachomatis, CHRIS Negati ve negati ve Not Available [facility] ([facility]) [address] [facility], [place], [address], 09/07/2023 07:13:24 09/05/19 24 09/07/2023 NUA B VAGIN ITIS PLUS (VG+) neisseria gonorrhoeae, CHRIS Negati ve negati ve Not Available [facility] ([facility]) [address] [facility], [place], [address], 09/07/2023 07:13:24 09/05/19 24 09/07/2023 IGP, APTIM A HPV HPV aptima Negati ve negati ve This nucle ic acid ampli ficat ion test detec ts fourt een high- risk HPV types (16,1 8,31, 33,35 ,39,4 5,51, 52,56 ,58,5 9,66, 68) witho ut diffe renti ation . Not Available [facility] ([facility]) [address] [facility], [place], [address], 09/10/2023 10:09:40 09/05/19 24 09/10/2023 IGP, APTIM A HPV diagnosis: Renu ALCARAZ FOR EVALU ATION . Not Available [facility] ([facility]) [address] [place], [address], 09/10/2023 10:09:40 09/05/19 24 09/10/2023 IGP, APTIM A HPV recommendati on: Commen t Sugge st follo w up as clini jay appro priat e. Not Available [facility] ([facility]) [address] [facility], [place], [address], 09/10/2023 10:09:40 09/05/19 24 09/10/2023 IGP, APTIM A HPV specimen adequacy: Renu wilson Speci men proce ssed and exami mahnaz, but unsat isfac tory for evalu ation of epith elial abnor malit y becau se of exces sive lubri cant. Not Available [facility] ([facility]) [address] [facility], [place], [address], 09/10/2023 10:09:40 09/05/19 24 09/10/2023 IGP, APTIM A HPV performed by: Renu severino, Cytot echn[employer] logis t (ASCP ) Not Available [facility] ([facility]) [address] [facility], [place], [address], 09/10/2023 10:09:40 09/05/19 24 09/10/2023 IGP, APTIM A HPV QC reviewed by: Sangita Jefferson y [employer]ot echno logis t (ASCP ) Not Available [facility] ([facility]) [address] [facility], [place], [address], 09/10/2023 10:09:40 09/05/19 24 09/10/2023 IGP, APTIM A HPV . . Not Available [facility] ([facility]) [address] [facility], [place], [address], 09/10/2023 10:09:40 09/05/19 24 09/10/2023 IGP, APTIM A HPV note: Renu wilson The Pap smear is a scree mireille test desig mahnaz to aid in the detec tion of joan ligna nt and malig nant condi tions of the uteri ne cervi x. It is not a diagn ostic proce dure and shoul d not be used as the sole means of detec ting cervi thierry cance r. Both false -posi tive and false -nega tive repor ts do occur . Not Available [facility] ([facility]) [address] [facility], [place], [address], 09/10/2023 10:09:40 09/05/19 24 09/10/2023 IGP, APTIM A HPV test methodology: Commen t This liqui d based ThinP rep(R ) pap test was scree mahnaz with the use of an image guide d syste m. Not Available [facility] ([facility]) [address] [facility], [place], [address], 09/10/2023 10:09:40 09/05/19 24 09/05/2023 pregn emelina test, urine HCG negati ve Not Available In-Office Order Internal Use Only DO Not Attach Compendium DO Not Attach Compendium, Do Not Delete/merge, [id number] 09/05/2023 11:44:46 12/17/19 24 12/17/2023 pregn emelina test, urine HCG negati ve Not Available In-Office Order Internal Use Only DO Not Attach Compendium DO Not Attach Compendium, Do Not Delete/merge, [id number] 12/17/2023 11:54:24 Result Notes None recorded. Problems Name Problem SNOMED Code Status Onset Date Resolution Date Notes Provider Name and Address Organization Details Recorded Time Mixed anxiety and depressive disorder 631776629 Active 023 ROLANDO UMANA DO Attn: Skyler g,[address] [facility], [place], [address], [place] 3 18:42:49 Problem Notes None recorded. Procedures Surgical History Date Name Laterality Status Provider Name and Address Organization Details Recorded Time 4 IUD Insertion completed Gama Torres MD Attn: Accounting,[address] [facility], [place], [address], [place] 12/17/2023 11:06:06 4 IUD Removal completed JODIE MENDOZA MD Attn: [address] , [place], [address], [place] [facility] 09/05/2023 12:57:59 3 Breast reduction completed Iman Villa MA [facility] 08/16/2023 14:40:11 excision of lymph node completed Iman Villa MA [facility] 08/16/2023 14:40:25 Imaging Results None recorded. Procedure Notes None recorded. Medical Equipment None Reported. Allergies No known drug allergies Medications Name Sig Start Date Stop Date Status Note LastModified by Organization Details LastModified Time Mirena 21 mcg/24 hr (up to 8 years) 52 mg intrauterin e device Take 1 device by intrauter ine route. 2023 active Not Available Not Available Not Avai lable paroxetine 10 mg tablet Take 1 tablet every day by oral route. 08/16 completed Not Available Not Available Not Available fluconazole 150 mg tablet TAKE 1 TABLET BY MOUTH DAILY 01/02 completed Not Available Not Available Not Available paroxetine 20 mg tablet Take 1 tablet every day by oral route. active Not Available Not Available No t Available methylpredn isolone 4 mg tablets in a dose pack FOLLOW PACKAGE DIRECTION S 08/16 completed Not Available Not Available Not Available intrauterin e device (IUD) Take by intrauter ine route. 01/02 completed Not Available Not Available Not Available nitrofurant oin monohydrate /macrocryst als 100 mg capsule TAKE 1 CAPSULE BY MOUTH EVERY 12 HOURS FOR 5 DAYS. TAKE WITH FOOD 01/02 completed Not Available Not Available Not Available 28 mg iron-800 mcg tablet Take 1 tablet by oral route for 30 days. 12/16 completed Not Available Not Available Not Available Vitals Date Recorded Body height Body mass index (BMI) Body weight Body temperature Heart rate Oxygen saturation Oxygen saturation in Arterial blood by Pulse oximetry Respiratory rate Systolic blood pressure Diastolic blood pressure Provider Name and Address Organization Details Last Updated DateTime 3 162.56 cm 40.3 kg/m2 444834. 21 g 97.9 [degF] 78 /min 98 % 98 % 16 /min 111 mm[Hg] 76 mm[Hg] Iman Villa MA [facility] 3 14:37:45 Date Recorded Body height Body temperature Body mass index (BMI) Body weight Heart rate Respiratory rate Systolic blood pressure Diastolic blood pressure Provider Name and Address Organization Details Last Updated DateTime 4 162.56 cm 97.5 [degF] 40.4 kg/m2 685481. 01 g 79 /min 16 /min 101 mm[Hg] 69 mm[Hg] Jazmin Guy MA [facility] 4 11:44:31 Date Recorded Body height Body mass index (BMI) Body weight Body temperature Heart rate Respiratory rate Oxygen saturation Oxygen saturation in Arterial blood by Pulse oximetry Systolic blood pressure Diastolic blood pressure Provider Name and Address Organization Details Last Updated DateTime 4 162.56 cm 37.1 kg/m2 24892.3 5 g 97.7 [degF] 70 /min 16 /min 98 % 98 % 116 mm[Hg] 74 mm[Hg] Britany Olivier MA [facility] 4 10:01:10 Date Recorded Body height Body mass index (BMI) Body weight Respiratory rate Body temperature Oxygen saturation Oxygen saturation in Arterial blood by Pulse oximetry Heart rate Systolic blood pressure Diastolic blood pressure Provider Name and Address Organization Details Last Updated DateTime 4 162.56 cm 36.8 kg/m2 52051.2 2 g 18 /min 97.9 [degF] 97 % 97 % 71 /min 106 mm[Hg] 73 mm[Hg] Josseline Clayton [facility] 4 11:33:38 Social History Question Answer Notes LastModified by Organizat ion Details LastModified Time Tobacco Smoking Status Never Smoker Iman Villa MA null, [facility] 08/16/2023 14:39:20 What Is Your Level Of Alcohol Consumption? Occasional Information not available 08/16/2023 In The 14 Days Before Symptom Onset, Have You Had Close Contact With A Laboratory-confir med COVID-19 While That Case Was Ill? No [email or web address] Information not available 01/03/2024 In The 14 Days Before Symptom Onset, Have You Had Close Contact With A Person Who Is Under Investigation For COVID-19 While That Person Was Ill? No [email or web address] Information not available 01/03/2024 Have You Been To An Area Known To Be High Risk For COVID-19? No [email or web address] Information not available 01/03/2024 Do You Or Have You Ever Used E-cigarettes Or Vape? Current User Of Electronic Cigarettes Information not available 08/16/2023 What Was The Date Of Your Most Recent Tobacco Screening? 01/03/2024 [email or web address] Information not available 01/03/2024 Are You Sexually Active? Yes Information not available 01/03/2024 Do You Have Smoke And Carbon Monoxide Detectors In Your Home? Yes [email or web address] Information not available 01/03/2024 Are You Passively Exposed To Smoke? Yes [email or web address] Information no t available 01/03/2024 Do You Use Any Illicit Or Recreational Drugs? No Information not available 08/16/2023 Has Tobacco Cessation Counseling Been Provided? Yes [email or web address] Information not available 09/05/2023 On What Date Was Tobacco Cessation Counseling Provided? 01/03/2024 [email or web address] Information not available 01/03/2024 Do You Or Have You Ever Used Any Other Forms Of Tobacco Or Nicotine? Yes Vape Information not available 08/16/2023 Sex: Female Functional Status None recorded. Mental Status None recorded. Family History Relationship Description Onset Age of this Age Resolved Age Notes LastModified by Organization Details LastModified Time Father No current problems or disability [email or web address] Not available 11/2023 11:41:23 Mother No current problems or disability [email or web address] Not available 11/2023 11:41:23 Notes:12/17/23, 01/03/24 Medical History Condition Response Coronary Artery Disease N Other N Atrial Fibrillation N High Blood Pressure N Kidney or Bladder Problems N Thyroid Problems N GI Problems N Depression Y COPD N Blood Clots N Skin Problems N Anemia N Heart Attack (ND) N Anxiety Disorder N Diabetes N Muscle, Joint, or Bone Problems N Seizures/Epilepsy N Acid Reflux (GERD) N Cancer N Stroke N Asthma Y Allergies N High Cholesterol N Hepatitis N Liver Disease N Headaches N Heart Failure N Osteoporosis N Gynecological History Statement/Question Response Menses Monthly N Age at Menarche 12 Current Control Method IUD Date of LMP 12/23/2023 LMP Approximate Obstetrics History GPAL:G 0 P 0 0 0 0 Past Encounters Encounter ID Performer Location Encounter Start Date Encounter Closed Date Diagnosis/Indication Diagnosis SNOMED-CT Code Diagnosis ICD10 Code Diagnosis Note [id number] MD Carlos Trna 14 IM [address] [facility] [place] [address] 08/16/2023 14:16:03 08/21/2023 15:40:49 Contraception care management 089373806 Z30.9 Has state insuranceC an use mirena IUD from office supplyNeed s pap at same time Adult heal th examination 571411902 Z00.00 Discussed anticipato ry guidance Health maintenanc e includes STI testing. She has already been tested for HIV and syphilis in the past and negative. Will obtain swab when she comes back for her Pap smear. Mixed anxi ety and depressive disorder 317119835 F41.8 On Paroxetine Managed by other provider Obesity 296659814 E66.9 Healthy lifestyle encouraged including regular exercise of at least 150min per week, diet rich in plant based foods and low in added sugars, processed carbohydra kelley, and high salt foods. Encouraged protein intake mostly with chicken and white fish and limited red meat. Electronic cigarette user 298532460 Z72.89 Discussed cessation [id number] MD Carlos Desir 14 IM [address] [facility] [place] [address] 09/05/2023 11:10:23 09/06/2023 08:51:20 Screening for malignant neoplasm of cervix 464768338 Z12.4 Patient tolerated pap smear and removal of IUD but changed her mind about new IUD insertion. No new iud was inserted. Patient to follow up and decide if she wants a nexplanon instead.Shaun thomas states she is not sexually active currently so she wants more time to think about it. [id number] MD Carlos TORRES 14 IM [address] [facility] [place] [address] 12/17/2023 09:52:05 12/21/2023 13:42:58 Contraception care management 819878868 Z30.9 Successful placement of IUD. No complicati ons. preg test negative prior to placing. Pt declined STI testing. Has been done this past year. Plan- Good for 8 years- Use condoms for 1 week to prevent - String check 2 weeks- Fertility will be restored when removed [id number] MD Carlos Desir 14 IM [address] [facility] [place] [address] 01/03/2024 11:18:01 01/10/2024 10:01:32 IUD check 000649712 Z30.[address] reass[address] e about bleeding and it can be normal up to 6 months after IUD placementR eturn precaution s discussed. Health Concerns Section Related Observation LastModified by Organization Detai ls LastModified Time None Recorded Concern Status LastModified by Organization Details LastModified Time None Recorded Advance Directives Directive None Recorded Payers Encounter Date Sequence Insurance Name Policy Number Policy Bruce Covered Member ID Bruce Member ID Guarantor Name 08/16/2023 2 [facility] (MEDICAID HMO) [id number] Staci Haines [id number] Staci Haines 09/05/2023 2 [facility] (MEDICAID HMO) [id number] Staci Haines [id number] Staci Haines 12/17/2023 2 [facility] (MEDICAID HMO) [id number] Staci Haines [id number] Staci Haines 01/03/2024 2 [facility] (MEDICAID HMO) [id number] Staci Haines [id number] Staci Haines Notes Date Note Type Note Provider Name and Address Organization Details Recorded Time 3 text/html 28 yo F presents to office to establish care. She has no concerns. Has Mirena IUD, not sure when it was placed.Not sexually active at this timeDoes not have a period. Periods were normal before her IUDHas gotten 2 IUDs in the pastHas a history of chlamydia 7-8 years ago that was treated successfully Taylor Hurtado MD Attn: Accounting,[address] [facility], [place], [address], [facility] 08/20/2023 16:28:54 4 text/html 28 yo with no pmh present to clinic for a routine pap, iud removal and insertion. Patient states last pap was 2 yo. Prev iud was placed 5 -6 years ago. Patient was denies being sexually active currentlyPatient denies history ofbreast canceruterine cavity abnormalityheart conditionsabnormal uterine bleedingliver abnormalities. Brenda Drake MD Attn: Accounting[address] [facility], [place], [address], [facility] 09/05/2023 23:16:25 4 text/html CC: IUD Mirena placement Procedure for skilled nursing control options discussed including Nexplanon, Mirena IUD and BTL. Discussed that no BC is 100% effective and there is a very low risk of with all of these options. At this time, pt desires to have Mirena IUD placed. Benefits, risks, and alternatives discussed in detail. Discussed preferred insertion is during menses. RTO during next menstrual cycle for UPT and MIrena IUD insertion. Pt expressed understanding. All questions and concerns addressed. Pt has had x2 Mirena placed.Would like to get another todayNo issues with previous placemnt.LMP 11/26/23Sexually active, not think she could be .Has been using condomsDeclines STI checkPap UTD. NADEGE PURDY MD Attn: Accounting,[address] [facility], [place], [address], [facility] 12/19/2023 13:29:32 4 text/html 28 yo F presents to clinic for IUD check Had vaginal irritation 2 weeks ago. Went to urgent care and treated for UTI and yeast infection and symptoms have since resolved. Has concerns about bleeding thought, has been on period for 12 days. Using super tampon every 6 hours. Her periods usually require super tampon every 2 hours. Brenda Drake MD Attn: [address] [place], [address], [facility] 01/03/2024 21:14:19 OBGyn Episode No OBEpisode recorded.
--- OUTSIDE RECORDS SUMMARY | 2024-11-15 11:47 | XMS_ITS | Referral Summary ---
Author Organization [facility] Address [address] [place] [address] Care Team Providers Care Transcription Specialist Name Role Phone Unknown, Notinfile Primary Care Provider Unavail able Allergies No known active allergies Medications escitalopram (LEXAPRO) 20 mg tablet Take 1 tablet (20 mg total) by mouth daily Active benzonatate (TESSALON) 100 mg capsuleIndicati ons:Cough Take 1 capsule (100 mg total) by mouth 2 (two) times a day as needed for cough 20 capsule 07/09/2023 Active traMADoL (ULTRAM) 50 mg tablet Take 1 tablet (50 mg total) by mouth every 6 (six) hours for 10 doses 10 tablet 07/09/2023 Active Social History Tobacco Use Types Packs/Day Years Used Date Smoking Tobacco: Never Assessed Personal Safety Answer Date Recorded Getting School Help Needed Not on file 02/01 Comments No Sex and Gender Information Value Date Recorded Sex Assigned at Not on file Legal Sex Female 11:30 PM CDT Gender Identity Not on file Sexual Orientation Not on file Last Filed Vital Signs Vital Sign Reading Time Taken Comments Blood Pressure 130/79 07/09/2023 4:58 AM [employer] Pulse 86 07/09/2023 4:58 AM [employer] Temperature 37.3 C (99.2 F) 07/09/2023 4:58 AM [employer] Respiratory Rate 16 07/09/2023 4:58 AM [employer] Oxygen Saturation 98% 07/09/2023 4:58 AM [employer] Inhaled Oxygen Concentration - - Weight 110.7 kg (244 lb) 07/09/2023 4:58 AM [employer] Height 162.6 cm (5' 4 ) 07/09/2023 4:58 AM [employer] Body Mass Index 41.88 07/09/2023 4:58 AM [employer] Plan of Treatment Not on file Insurance [facility] Care Teams Transcription Specialist Relationship Specialty Start Date End Date Unknown, Notinfile PCP - General 01/23/23
--- OUTSIDE RECORDS SUMMARY | 2024-11-15 11:47 | XMS_ITS | Patient Health Summary ---
Author Organization [facility] Address [address] [place] [address] Care Team Providers Care Tie Fastener Name Role Phone Reuben Goff MD Primary Care Provider [phone] Note from [facility],non-owned Affiliates and Associated Physician Practices is amultiple site organization consisting of ambulatory clinics and hospital sitesin [place], [place], [place] and [place]. This disclosure is being madepursuant to the Care Everywhere program and may not contain all information available regarding this patient. Last updated 18.[facility] Allergies No known active allergies Medications * Be aware that medications may not be up to date on this document. Alwaysverify current medications with the patient. * levonorgestrel (MIRENA) 20 MCG/24HR IUD 1 Each by Intrauterine route * albuterol HFA (PROVENTIL;VENTOLIN;PROAIR) 108 (90 BASE) MCG/ACT inhaler (Started 08/29/2018) Inhale 2 puffs by mouth every 4 hours as needed for Shortness of Breath, Wheezing or Cough * escitalopram (LEXAPRO) 20 MG tablet(Started 03/17/2020) Take 20 mg by mouth once daily * buPROPion XL 24hr (WELLBUTRIN-XL) 150 MG tablet(Started 03/10/2021) Take 150 mg by mouth once daily Active Problems No known active problems Social [...] PM CDT Pulse 69 08/29/2018 12:00 PM BIOFUELS PRODUCTION MANAGER Temperature 36.3 C (97.3 F) 06/29/2020 11:36 AM CDT Respiratory Rate 16 12/12/2016 12:06 PM CDT Oxygen Saturation 97% 08/29/2018 12:00 PM BIOFUELS PRODUCTION MANAGER Inhaled Oxygen Concentration - - Weight 108.4 kg (239 lb) 02/20/2022 2:39 PM CDT Height 162.6 cm (5' 4 ) 02/20/2022 2:39 PM CDT Body Mass Index 41.02 02/20/2022 2:39 PM CDT Procedures * CT SONO EXAM, TRANSVAGINAL(Performed 02/24/2022) Performed for Intrauterine contraceptive device threads lost, initial encounter * IMAGING/RADIOLOGY/XRAY RESULTS ORDER(Performed 02/24/2022) * HEPATITIS C AB W/RFLX TO HCV RNA QN PCR(Performed 06/29/2020) Performed for Screen for STD (sexually transmitted disease) * HEPATITIS B SURFACE ANTIGEN W RFLX CONFIRMATION(Performed 06/29/2020) Performed for Screen for STD (sexually transmitted disease) * RPR W REFLEX TO TITER+CONFIRM(Performed 06/29/2020) Performed for Screen for STD (sexually transmitted disease) * HIV-1 HIV-2 ANTIBODY + HIV P24 AG PANEL(Performed 06/29/2020) Performed for Screen for STD (sexually transmitted disease) * C. TRACHOMATIS + N. GONORRHOEAE + TRICH CHRIS(Performed 06/29/2020) Performed for Screen for STD (sexually transmitted disease) * PAP IMAGE-GUIDED RFLX HPV+CT/NG(Performed 12/12/2018) Performed for Well woman exam with routine gynecological exam * C. TRACHOMATIS + N. GONORRHOEAE CHRIS(Performed 12/12/2018) Performed for Well woman exam with routine gynecological exam * WET PREP - POINT OF CARE (AMB) [facility](Performed 12/12/2018) Performed for Acute vaginitis * PULSE OXIMETRY - POINT OF CARE (AMB)(Performed 08/29/2018) Performed for Asthma with acute exacerbation, unspecified asthma severity, unspecified whether persistent (HCC) * STREP A SCREEN - POINT OF CARE (AMB) [facility](Performed 08/29/2018) Performed for Asthma with acute exacerbation, unspecified asthma severity, unspecified whether persistent (HCC) * HCG URINE QUALITATIVE - POCT (IP) [facility](Performed 10/18/2017) * HEPATIC FUNCTION PANEL(Performed 10/11/2017) * LIPID PROFILE(Performed 10/11/2017) * HCG URINE QUALITATIVE - POCT (IP) [facility](Performed 09/12/2017) * HEPATIC FUNCTION PANEL(Performed 09/06/2017) * LIPID PROFILE(Performed 09/06/2017) * HCG URINE QUALITATIVE - POCT (IP) [facility](Performed 08/15/2017) * HEPATIC FUNCTION PANEL(Performed 08/09/2017) * LIPID PROFILE(Performed 08/09/2017) * HCG URINE QUALITATIVE - POCT (IP) [facility](Performed 07/11/2017) * STREP A SCREEN - POINT OF CARE (AMB) [facility](Performed 12/12/2016) Performed for Acute pharyngitis, unspecified etiology * CHLAMYDIA+GC CHRIS PAP VIAL(Performed 11/30/2014) Results * CT SONO EXAM, TRANSVAGINAL (02/24/2022 9:27 AM CDT) Narrative Jazmin Aguirre RDMS - 02/24/2022 9:27 AM CDT Jazmin Aguirre RDMS 02/24/2022 9:28 AM Documentation in digisonics. Reuben Cheema MD PROCEDURE/MINOR EDGAR GICAL ORDERABLES * IMAGING RADIOLOGY XRAY RESULTS ORDER (02/24/2022) Anatomical Region Laterality Modality Other Narrative 02/24/2022 Ordered by an unspecified provider. Scanned Document IMAGING * HEPATITIS C AB W/RFLX TO HCV RNA QN PCR (06/29/2020 11:53 AM CDT) Hepatitis C Antibody NON-REACTI VE NON-REACT [facility] Signal to Cut-Off 0.01 <1.00 [facility] Comment: HCV antibody was non-reactive. There is no laboratory evidence of HCV infection. In most cases, no further action is required. However, if recent HCV exposure is suspected, a test for HCV RNA (test code 69845) is suggested. For additional information please refer to http://education.Chooos/faq/BOI78y7 (This link is being provided for informational/ educational purposes only.) Test Performed at: [facility] [address] [place] [address] BERNARD FREITAS DO,MPH Blood BLOOD SPECIMEN / Unknown 06/29/2020 11:53 AM CDT 06/29/2020 11:53 AM CDT Maru Freeman Crow MCLEAN-CN LAB - CHEM ISTRY ORDERABLES Performing Organization Address [facility] Co de Phone Number [facility] [phone] [place] [address] * RPR W REFLEX TO TITER+CONFIRM (06/29/2020 11:53 AM CDT) RPR NON-REACTI VE NON-REACT [facility] Comment: REPORT COMMENT: FASTING:NO Test Performed at: [facility] [address] [place] [address] BERNARD FREITAS DO,MPH Blood BLOOD SPECIMEN / Unknown 06/29/2020 11:53 AM CDT 06/29/2020 11:53 AM CDT Maru Fernandezregan Maria APRN-CNClive LAB - CHEM ISTRY ORDERABLES Performing Organization Address [facility] [place] [address] * HIV-1 HIV-2 ANTIBODY + HIV P24 [...] purpose. For additional information please refer to http://education.[employer].GREE/faq/VPL900 (This link is being provided for informational/ educational purposes only.) The performance of this assay has not been clinically validated in patients less than 2 years old. Test Performed at: [facility] [address] [place] [address] BERNARD FREITAS DO,MPH Blood BLOOD SPECIMEN / Unknown 06/29/2020 11:53 AM CDT 06/29/2020 11:53 AM CDT Maru Maria APRN-JCARLOS LAB - CHEM ISTRY ORDERABLES Performing Organization Address [facility] [place] [address] * HEPATITIS B SURFACE ANTIGEN W RFLX CONFIRMATION (06/29/2020 11:53 AM CDT) Pathologist [facility] Hepatitis B Virus Surface Antigen NON-REACTI VE NON-REACT LUCITA [employer] Comment: Test Performed at: [facility] [address] [place] [address] BERNARD FREITAS DO,MPH Blood BLOOD SPECIMEN / Unknown 06/29/2020 11:53 AM CDT 06/29/2020 11:53 AM CDT Maru VIEIRA LAB - CHEM ISTRY ORDERABLES Performing Organization Address [facility] [place] [address] * C. TRACHOMATIS + N. GONORRHOEAE + TRICH CHRIS (06/29/2020 11:40 AM CDT) Chlamydia Trachomatis CHRIS Not Detected Not Detected 07/01/2020 4:52 PM CDT [facility] Neisseria Gonorrhoeae CHRIS Not Detected Not Detected 07/01/2020 4:52 PM CDT [facility] Trichomonas Vaginalis CHRIS Not Detected Not Detected 07/01/2020 4:52 PM CDT [facility] Microbiology MISCELLANEOUS SAMPLES / Unknown 06/29/2020 11:40 AM CDT 06/30/2020 12:08 PM CDT Narrative [facility] - 07/01/2020 4:52 PM CDT This analysis was performed using Gen-Probe Aptima Combo 2 and Gen-Probe Aptima Assay. These methodologies are U.S. FDA approved for Chlamydia trachomatis, Neisseria gonorrhoeae testing for urine and urogenital swabs from men and women, and cervical cells submitted in ThinPrep vials. Performance characteristics of testing for Trichomonas vaginalis on specimens using the Gen-Probe Aptima Trichomonas vaginalis Assay on the Morse system and rectal and pharyngeal swabs with Gen-Probe Aptima combo 2 were determined by the [facility] at [facility]. They have not been cleared or approved by the U.S Food and Drug Administration (FDA). The FDA has determined that such clearance approval is not necessary. This test is used for clinical purposes and should not be regarded as investigational or for research. This laboratory is certified under the Clinical Laboratory Improvements Amendments of 1988 (CLIA 1988), as qualified to perform high complexity laboratory testing. Maru Maria MECHANICAL DRAFTER-CNM LAB - MICR OBIOLOGY ORDERABLES [facility] [address] [phone] * C. TRACHOMATIS + N. GONORRHOEAE CHRIS (12/12/2018 11:12 AM CDT) Chlamydia Trachomatis CHRIS Not Detected Not Detected 12/16/2018 3:46 PM CDT [facility] Neisseria Gonorrhoeae CHRIS Not Detected Not Detected 12/16/2018 3:46 PM CDT [facility] Pathology/Cytolo gy ENTIRE ENDOCERVIX / Unknown 12/12/2018 11:12 AM CDT 12/13/2018 11:12 AM CDT Narrative [facility] - 12/16/2018 3:46 PM CDT This analysis was performed using Gen-Probe Aptima Combo 2. This methodology is U.S. FDA approved for Chlamydia trachomatis and Neisseria gonorrhoeae testing for urine and urogenital swabs from men and women, and cervical cells submitted in ThinPrep vials. Performance characteristics for rectal and pharyngeal swabs were determined by the [facility] Laboratory at [facility]. Testing by Gen-Probe Aptima Combo 2 on these sample types has not been cleared or approved by the U.S. FDA. The FDA has determined that such clearance approval is not necessary. This test is used for clinical purposes and should not be regarded as investigational or for research. This laboratory is certified under the Clinical Laboratory Improvements Amendments of 1988 (CLIA 1988), as qualified to perform high complexity laboratory testing. Ivett Ray MD LAB - MICROB IOLOGY ORDERABLES [facility] [address] [phone] * PAP IMAGE-GUIDED LIQUID BASE RFLX HPV+CT/NG (12/12/2018 11:12 AM CDT) Case Report Gynecologic Cytology Report Case: [id number] Authorizing Provider: Ivett Ray, Collected: 12/12/2018 11:12 AM Ordering Location: [facility] Obstetrics Received: 12/13/2018 11:12 AM Gynecology and [...] 1:15 PM CDT [facility] Interpretation PRICING SUPERVISOR Negative for intraepithelial lesion or malignancy. 12/18/2018 1:15 PM CDT [facility] Pap Footnote This specimen was evaluated by the ThinPrep Imaging System along with the an additional manual rescreening by a elevator repair mechanic and/or pathologist. 12/18/2018 1:15 PM CDT [facility] Embedded Images 9 1:15 PM CDT [facility] Pathology/Cytolo gy ENTIRE ENDOCERVIX / Unknown 12/12/2018 11:12 AM CDT 12/13/2018 11:12 AM CDT Ivett Ray MD LAB - PATHOL OGY/CYTOLOGY ORDERABLES [facility] [address] [place] [address], [facility] [phone] * WET PREP - POINT OF CARE (AMB) [facility] (12/12/2018) Pathologist [facility] pH Wet Prep p Yeast Wet Prep n Trichomonas Wet Prep n Bacteria Wet Prep p Whiff Test n BODY FLUID SPECIMEN / Unknown 12/12/2018 Ivett Ray MD LAB - POINT OF CARE ORDERABLES * PULSE OXIMETRY - POINT OF CARE (AMB) (08/29/2018) Pathologist [facility] Oximetry POCT 97 0 - 100 % QC Verified Yes Yes Blood BLOOD SPECIMEN / Unknown 08/29/2018 Mary Carmen Soto APRNPEDIATRIC CARDIOLOGIST LAB - POINT OF CARE ORDERABLES * STREP A SCREEN (08/29/2018) Only the most recent of2 resultswithin the time period is included. Strep A Rapid POCT Negative Negative Strep A Internal Control Present Lot # [id number] Expiration Date 11/02/2019 Throat ENTIRE THROAT (SURFACE REGION OF NECK) / Unknown 08/29/2018 Mary Carmen PARKER LAB - POINT OF CARE ORDERABLES * HCG URINE QUALITATIVE - POCT (IP) [facility] (10/18/2017 10:22 AM BIOFUELS PRODUCTION MANAGER) Only the most recent of4 resultswithin the time period is included. Test Urine Negative [facility] Urine specimen (specimen) 10/18/2017 10:22 AM BIOFUELS PRODUCTION MANAGER Gonzalo Mejia MD LAB - POINT OF CARE ORDERABLES [address] * HEPATIC FUNCTION PANEL (10/11/2017 1:36 PM BIOFUELS PRODUCTION MANAGER) Only the most recent of3 resultswithin the time period is included. Protein Total 7.1 6.1 - 8.1 g/dL [facility]) Albumin 4.4 3.6 - 5.1 g/dL [facility]) Globulin 2.7 1.9 - 3.7 g/dL (calc) [facility]) Albumin/Globulin Ratio 1.6 1.0 - 2.5 (calc) [facility] ([facility]) Bilirubin Total 0.6 0.2 - 1.2 mg/dL [facility]) Bilirubin Direct 0.1 < OR = 0.2 mg/dL [facility]) Bilirubin Indirect 0.5 0.2 - 1.2 mg/dL (calc) [facility] ([facility]) Alkaline Phosphatase 90 33 - 115 U/L [facility]) AST 16 10 - 30 U/L [facility]) ALT 10 6 - 29 U/L [facility] ([facility]) Comment: REPORT COMMENT: FASTING:YES Test Performed at: [facility] [address] [address] BERNARD FREITAS DO,MPH 10/11/2017 1:36 PM BIOFUELS PRODUCTION MANAGER 10/11/2017 1:37 PM BIOFUELS PRODUCTION MANAGER Sharri Maacrio MD LAB - CHEMISTRY ORDE NINO [facility] ([facility]) [address] * (ABNORMAL) LIPID PROFILE (10/11/2017 1:36 PM BIOFUELS PRODUCTION MANAGER) Only the most recent of3 resultswithin the time period is included. Cholesterol Total 209(H) <200 mg/dL [facility]) HDL 25(L) >50 mg/dL [facility]) Triglycerides 266(H) <150 mg/dL [facility] ([facility]) LDL Calculated 143(H) mg/dL (calc) [facility] ([facility]) Comment: Reference range: <100 Desirable range <100 mg/dL for patients with CHD or diabetes and <70 mg/dL for diabetic patients with known heart disease. LDL-C is now calculated using the Dieudonne-Rene calculation, which is a validated novel method providing better accuracy than the Friedewald equation in the estimation of LDL-C. Dieudonne SS et al. STEVEN. 2013;310(19): 1520-4387 (http://education.[employer]soft [employer] Technology/faq/SIX674) Chol/HDL Ratio 8.4(H) <5.0 (calc) [facility] ([facility]) Non HDL Cholesterol 184(H) <130 mg/dL (calc) [facility] ([facility]) Comment: For patients with diabetes plus 1 major ASCVD risk factor, treating to a non-HDL-C goal of <100 mg/dL (LDL-C of <70 mg/dL) is considered a therapeutic option. Test Performed at: [facility] [place] [address] BERNARD FREITAS DO,MPH 10/11/2017 1:36 PM BIOFUELS PRODUCTION MANAGER 10/11/2017 1:37 PM BIOFUELS PRODUCTION MANAGER Sharri Macario MD LAB - CHEMISTRY [facility] Organization Address City/State/ZIP Co de Phone Number [facility] ([facility]) [address] * CHLAMYDIA+GC CHRIS PAP VIAL (11/30/2014 2:01 PM CDT) Chlamydia trachomatis RNA TMA NOT DETECTED NOT DETECTED [facility] ([facility]) Neisseria gonorrhoeae RNA TMA NOT DETECTED NOT DETECTED [facility] ([facility]) See Note [facility] ([facility]) Comment: This test was performed using the APTIMA COMBO2 Assay ([employer] The analytical performance characteristics of this assay, when used to test [employer] specimens have been determined by [employer]. REPORT COMMENT: SPECIMEN TYPE->VAGINAL SWAB Test Performed at: [facility] [address] BERNARD FREITAS DO,MPH Vaginal swab (specimen) 11/30/2014 2:01 PM CDT 12/01/2014 1:13 AM CDT Narrative [facility] ([facility]) - 12/01/2014 3:00 PM CDT Specimen Type->Vaginal swab Ivett Ray MD LAB - MICROB IOLOGY ORDERABLES [facility] ([facility]) Care Teams Tie Fastener Relationship Specialty Start Date End Date Reuben Goff MD [facility] [place] [address] PCP - General 02/14/18
--- OUTSIDE RECORDS SUMMARY | 2024-11-15 11:47 | XMS_ITS | Clinical Summary ---
Author Organization [facility] Address [address] [place] [address] Care Team Providers Care Cake Press Operator Name Role Phone Unknown, Notinfile Primary Care [...] Comments Blood Pressure 130/79 07/09/2023 4:58 AM [employer] Pulse 86 07/09/2023 4:58 AM [employer] Temperature 37.3 C (99.2 F) 07/09/2023 4:58 AM [employer] Respiratory Rate 16 07/09/2023 4:58 AM [employer] Oxygen Saturation 98% 07/09/2023 4:58 AM [employer] Inhaled Oxygen Concentration - - Weight 110.7 kg (244 lb) 07/09/2023 4:58 AM [employer] Height 162.6 cm (5' 4 ) 07/09/2023 4:58 AM [employer] Body Mass Index 41.88 07/09/2023 4:58 AM [employer] Plan of Treatment Health Maintenance Due Date Last Done Comments Cervical Cancer Screening 1994 Depression Screening 1994 Hepatitis C Screening 1994 Regular Well Visit/Exam 18-64 2012 HPV Vaccines (2 - 3-dose series) 12/28/2014 11/30/2014 Influenza Vaccine (#1) 2024 06/28/2022 DTaP/Tdap/Td Vaccine (8 - Td or Tdap) 06/28/2032 06/28/2022, 04/30/2007, 04/22/1999, Additional history exists Hepatitis B Screening Completed 08/18/1995 , 08/18/1995, 1994, Additional history exists Varicella Vaccines Completed 04/30/2007, 04/22/1999 Pneumococcal vaccine <65 Aged Out No longer eligible based on patient's age to complete this topic Insurance [facility] Care Teams Cake Press Operator Relationship Specialty Start Date End Date Unknown, Notinfile PCP - General 01/23/23
--- OUTSIDE RECORDS SUMMARY | 2024-11-15 11:47 | XMS_ITS | Clinical Summary ---
Author Organization [facility] [employer] [place] Address [address] [place] [address] Care Team Providers Care High School Sports Coach Name Role Phone Unavailable Primary Care Provider Unavailabl e Allergies No known active allergies Medications INTRAUTERINE DEVICE, IUD, INTRAUTERINE by Intrauterine route. Active albuterol HFA 90 mcg inhalerIndicatio ns:Asthma, cough variant Take 2 Puffs by inhalation every 4 hours as needed for Shortness of Breath. 18 Gram 5 0 Active buPROPion HCL (WELLBUTRIN XL) 150 mg Extended Release 24 hour tablet Take 1 Tablet (150 mg) by mouth daily in the morning. 90 Tablet 1 Active escitalopram oxalate (LEXAPRO) 20 mg tablet Take 1 Tablet (20 mg) by mouth daily. 90 Tablet 1 Active Active Problems Problem Noted Date Diagnosed Date Gastroesophageal reflux disease without esophagi tis 11/04/2019 Resolved Problems Problem Noted Date Diagnosed Date Resolved Date Panic attacks 11/04/2019 01/24/2021 Situational depression 09/05/201901/24 Assessment & Plan (10/06/2021 12:38 PM MANNEQUIN MOUNTER): Patient has non-specific depression on problem list or past encounter, a positive PHQ-9 or antidepressant on medication list. Every Word Counts - Depression ([facility]) Immunizations Immunization Administration Dates Next Due (ADACEL/BOOSTRIX)(10 YR UP) TDAP VACCINE, 0.5ML, IM 04/30/2007 (HAVRIX/VAQTA)(12 MO-18 YRS) HEPATITIS A VACCINE 0.5 ML PED/ADOL 2 DOSE, IM 04/30/2007 (INFANRIX)(6 WKS-6 YRS) DIPT HERIA, TETANUS TOXOIDS, AND ACCELLULAR PERTUSSIS VACCINE (DTAP), 0.5 ML IM 04/22/1999,08/18/1995,01/25/1995,09/13,1994 (IPOL)(6 WKS AND UP) POLIOVI FINN VACCINE, INACTIVATED (IPV), 3 DOSE, SUBCUT OR IM 04/22/1999,01/25/1995,1994,06/15 (M-M-R II/PRIORIX)(12 MO UP) MEASLES, MUMPS AND RUBELLA VIRUS VACCINE, 0.5 ML IM/SUBCUT 04/22/1999,08/18/1995 (RECOMBIVAX HB/ENGERIX-B)(0- 19 YRS) HEPATITIS B VACCINE 5 MCG/0.5 ML OR 10 MCG/0.5 ML PED OR ADOL 3 DOSE (PF), IM 08/18/1995,1994,1994 (VARIVAX)(12 MOS UP)VARICELL A VIRUS VACCINE (PF) 0.5 ML, SUB CUT 04/30/2007,04/22/1999 Hemophilus influenza b vacci ne (Hib), HbOC conjugate (4 dose schedule), for intramuscular use 08/18/1995,01/25/1995,1994,06/15 Meningococcal Polysaccharide Vaccine SQ 04/30/2007 Family History Medical History Relation Name Comments Unknown Father Hypertension Mother Unknown Paternal Grandfather Unknown Paternal Grandmother No Known Problems Sister Relation Name Status Comments Father Alive Mother Alive Paternal Grandfather Paternal Grandmother Sister Alive Social History Tobacco Use Types Packs/Day Years Used Date Smoking Tobacco: Never Smokeless Tobacco: Never Alcohol Use Standard Drinks/Week Comments Yes 0 (1 standard drink = 0.6 oz pur e alcohol) Comments No Sex and Gender Information Value Date Recorded Sex Assigned at Not on file Legal Sex Female 10:15 PM CDT Gender Identity Not on file Sexual Orientation Not on file Last Filed Vital Signs Vital Sign Reading Time Taken Comments Blood Pressure 104/70 09/14/2020 1:02 PM MANNEQUIN MOUNTER Pulse 85 09/14/2020 1:02 PM MANNEQUIN MOUNTER Temperature 36.8 C (98.2 F) 09/14/2020 1:02 PM MANNEQUIN MOUNTER Respiratory Rate 18 09/14/2020 1:02 PM MANNEQUIN MOUNTER Oxygen Saturation 98% 09/14/2020 1:02 PM MANNEQUIN MOUNTER Inhaled Oxygen Concentration - - Weight 109.3 kg (241 lb) 09/14/2020 1:02 PM MANNEQUIN MOUNTER Height 162.6 cm (5' 4 ) 09/14/2020 1:02 PM MANNEQUIN MOUNTER Body Mass Index 41.37 09/14/2020 1:02 PM MANNEQUIN MOUNTER Plan of Treatment Health Maintenance Due Date Last Done Comments DTAP/TDAP/TD VACCINES (7 - Td or Tdap) 04/30/2017 04/30/2007, 04/22/1999, 08/18/1995, Additional history exists INFLUENZA VACCINE (#1) 2024 06/09/2019 CERVICAL CANCER SCREENING 04/05/20242018, 10/04/2018 (Previously completed) HEPATITIS B VACCINES Completed 08/18/1995, 1994, 1994 HPV VACCINES Aged Out No longer eligi ble based on patient's age to complete this topic PNEUMOCOCCAL VACCINE 0-49 YEARS Aged Out No longer eligible based on patient's age to complete this topic Advance Directives For more information, please contact: [phone] * Full Code (Latest Code Status on File) Date Activated Date Inactivated Comments 10/10/2019 11:11 AM 10/10/2019 2:57 PM
--- OUTSIDE RECORDS SUMMARY | 2024-11-15 11:48 | XMS_ITS | Clinical Summary ---
Author Organization [facility] Address [address] [place] [address] Phone Care Team Providers Care Personalized Living Manager Nurse Name Role Phone Cindy Jackson PAC Unavailable Cindy Jackson PAC Primary Care Pro vider Allergies No known active allergies Medications PARoxetine (PAXIL) 20 MG Tablet Take 1 Tablet by mouth daily. 90 Tablet 1 10/24/2023 Active Active Problems Problem Noted Date Diagnosed Date Depression 07/05/2023 Major depressive disorder, recurrent episode, mi ld 12/15/2020 Gastroesophageal reflux disease without esophagi tis 11/04/2019 09/17/2023 Immunizations Immunization Administration Dates Next Due DTAP VACCINE 04/22/1999, 5,01/25/1995,09/13,1994 DTAP VACCINE, 5 PERTUSSIS AN TIGENS, VACCINE IM 04/22/1999,08/18/1995,01/25/1995,09/13,1994 DTAP VACCINE, UNSPECIFIED FORMULATION ,08/18/1995,07/14/1995,01/25 Hepatitis A Vaccine 06/28/2022 Hepatitis A Vaccine, Pediatric/adolescent, 2 Dose Schedule 04/30/2007 Hepatitis A Vaccine,unspecif ied Formulation 04/30/2007 Hepatitis B Vaccine, Pediatric/adolescent 08/18/1995,1994,1994 Hepatitis B Vaccine,unspecif ied Formulation 1994,1994 Hib (HbOC) 08/18/1995, 5,1994,06/15 Human Papillomavirus Vaccine (HPV), quadrivalent 11/30/2014 Inactivated Polio Vaccine 04/22/1999,,1994,06/15 Influenza Vaccine, Quadrivalent, PF 06/28/2022 MMR Vaccine 04/22/1999,08/18/1995 Meningococcal Vaccine 04/30/2007 Polio Vaccine,unspecified Formulation 1994 ,1994 TDAP Vaccine 06/28/2022,04/30/2007 Varicella Vaccine Live 04/30/2007,04/22/1999 Family History Medical History Relation Name Comments Bipolar Disorder Father Bipolar Disorder Half-Sister No Known Problems Mother Relation Name Status Comments Father Alive Half-Sister Alive Mother Alive Social History Tobacco Use Types Packs/Day Years Used Date Smoking Tobacco: Never Smokeless Tobacco: Never Tobacco Cessation:Counseling Given: No Alcohol Use Standard Drinks/Week Comments Yes 0 (1 standard drink = 0.6 oz pure alcohol) Occasionally has a drink with friends about 1x month PHQ-2 Answer Date Recorded Total Score - Questions 1-9 13 09/03 Education Answer Date Recorded What is the highest level of school you have completed or the highest degree you have received? GED or equivalent 10/2022 Sexually Active Control Partners Comments Yes I.U.D. Male Comments No Sex and Gender Information Value Date Recorded Sex Assigned at Not on file Legal Sex Female 1:06 PM CDT Gender Identity Not on file Sexual Orientation Not on file Last Filed Vital Signs Vital Sign Reading Time Taken Comments Blood Pressure 104/60 10/30/2023 2:31 PM TENNIS INSTRUCTOR Pulse 92 10/30/2023 2:31 PM TENNIS INSTRUCTOR Temperature 36.4 C (97.5 F) 10/30/2023 2:31 PM TENNIS INSTRUCTOR Respiratory Rate 12 10/30/2023 2:31 PM TENNIS INSTRUCTOR Oxygen Saturation 96% 10/30/2023 2:31 PM TENNIS INSTRUCTOR Inhaled Oxygen Concentration - - Weight 98.9 kg (218 lb) 10/24/2023 3:40 PM TENNIS INSTRUCTOR Height 162.6 cm (5' 4 ) 10/24/2023 3:40 PM TENNIS INSTRUCTOR Body Mass Index 37.42 10/24/2023 3:40 PM TENNIS INSTRUCTOR Plan of Treatment Upcoming Encounters Date Type Department Care Team (Late st Contact Info) Description 12/08/2024 9:00 AM CDT Office Visit [facility] - Internal Medicine - [place] [address] [place] [address] Cindy Jacksonelle, PAC [address] [place] [address] Health Maintenance Due Date Last Done Comments Pap Smear 2015 Cervical Cancer Screening (CCS) 2024 HPV/Cotest 2024 Influenza Immunization (#1) 2024 06/28/2022 SARS-COV-2 Immunization ( season) 2024 01/04/2021, 12/07/2020 DTaP/Tdap/Td Immunization (8 - Td or Tdap) 06/28/2032 06/28/2022, 04/30/2007, 04/22/1999, Additional history exists Respiratory Syncytial Virus (RSV) Immunization (Adult) (1 - 1-dose 75+ series) 2069 Hepatitis B Immunization Completed 995, 1994, 1994, Additional history exists Meningococcal Immunization (ACWY) Aged Out 04/30/2007 No longer eligible based on patient's age to complete this topic Human Papillomavirus (HPV) Immunization Discontinued 11/30/2014 Hepatitis C Virus (HCV) Screening Completed 10/25/2023, 06/19/2020 Pneumococcal Immunization Combined Aged Out No longer eligible based on patient's age to complete this topic Rotavirus Immunization Aged Out No lo nger eligible based on patient's age to complete this topic Goals Goal Patient Goal Type Associated Problems Recent Progress Patient-Stated? Author Behavioral Health Behavioral Health On track(2023 3:13 PM TENNIS INSTRUCTOR) Yes Kenzie Miller, [employer] Note: I see nothing good in myself. I want to change that. I want to be happy again. Goal Reviewed with: patient today Readiness to change: Ready to change Department associated with goal: [facility] Steps to achieve goal: will identify at least two personal goals. will identify at least two skills/activities/habits that may improve mood and motivation. will identify and begin implementing at least two action steps to work toward better self esteem will identify and begin implementing at least one skill/activity/habit to improve mood and motivation. Will be able to accomplish this accomplish this in 6 months, or reevaluate. Behavioral Health Behavioral Health On track(2023 3:13 PM TENNIS INSTRUCTOR) Kenzie Ramsey LCSW Note: Summer will report an improvement in mood Goal Reviewed with: patient today Readiness to change: Ready to change Department associated with goal: [facility] Steps to achieve goal: 1. will identify, at least three, triggers to distressing mood change. 2. will identify, at least two ways/skills to prevent depressed (or other problematic) mood. 3. will identify, at least two ways/skills to cope with depressed (or other problematic) mood. 4. will implement one prevention and one coping skill and evaluate effectiveness. 5. Will not miss any more work due to depressive symptoms Procedures Procedure Name Priority Date/Time Associated Diagnosis Comments HEPATITIS C ANTIBODY Routine 10/25/2023 3:42 PM TENNIS INSTRUCTOR STD exposure from Last 3 Months or Most Recently Relevant to Health Maintenance Results * HEPATITIS C ANTIBODY (10/25/2023 3:42 PM TENNIS INSTRUCTOR) hepatitis C antibody 0.06 <1 S/[facility] ARCH [id number] B 10/26/2023 2:42 PM TENNIS INSTRUCTOR [facility] Comment: Signal/Cutoff ratio < 0.79 is Nondetected Signal/Cutoff ratio 0.80-0.99 is Grayzone Signal/Cutoff ratio > 0.99 is Detected Supplemental assays are recommended if signal/cutoff ratio is >/=1.00. Signal/cutoff ratio result >/= 5.00 is 97% predictive of positivity for recombinant immunoblot assay (RIBA) and will be reported to the [place] Department of Public Health as required. Blood Venipuncture / Unknown 10/25/2023 3:42 PM TENNIS INSTRUCTOR 10/25/2023 3:42 PM TENNIS INSTRUCTOR us Cindy Jackson PAC CHEMISTRY ORDERAB LES Final Result [facility] [address] [place] [address], [place] from Last 3 Months or Most Recently Relevant to Health Maintenance Insurance [place]ICAID [place] Care Teams Personalized Living Manager Nurse Relationship Specialty Start Date End Date Cindy Jackson, PAC [address] [place] [address] PCP - General Physician Drafter (Cad) Electrical 09/15/22 Cindy Jackson, PAC [address] [place] [address] Physician Drafter (Cad) Electrical Physician Drafter (Cad) Electrical 09/08/22
[2024-11-15 11:50] VITALS: BP 153/69; PULSE 81; RESP 18; TEMP 36.7; O2SAT 97
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
== END 2024-11-15 12:53 | disposition home or self-care (01) ==
PROVIDERS: Emergency Provider Registered Nurse
DX: S92.335A Nondisplaced fracture of third metatarsal bone, left foot, initial encounter for closed fracture (principal); S92.345A Nondisplaced fracture of fourth metatarsal bone, left foot, initial encounter for closed fracture; W17.89XA Other fall from one level to another, initial encounter; F32.A Depression, unspecified; Z97.5 Presence of (intrauterine) contraceptive device
CPT/HCPCS: 73630; 99214; G0463

== ENCOUNTER 2024-11-24 13:12 | Outpatient (CLI) | payer BC, SELFPAY ==
--- NOTE | ~2024-11-24 | XR_ITS ---
XR foot LT min 3V Ordering provider: Colby Terrell MD History: . M79.672 - Pain in left foot -FU FX . Comparison: November 15, 2024 FINDINGS: BONES: Undisplaced fracture of the distal metaphysis of the third and fourth metatarsal bones unchang ed from previous examination. No other fractures seen. JOINT SPACES: Normal. No tarsal coalition. SOFT TISSUES: Normal. Calcaneal spur. Ossification of the insertion of the tendo Achilles. IMPRESSION: Unchanged fracture in distal metaphysis of the third and fourth metatarsal bones. Reviewed, dictated and finalized at location A. IMPRESSION: Unchanged fracture in distal metaphysis of the third and fourth metatarsal bone s.
--- OUTSIDE RECORDS SUMMARY | 2024-11-24 15:00 | XMS_ITS | Referral Summary ---
Author Organization [facility] Address [address] [place] [address] Care Team Providers Care Denial Resolution Specialist Name Role Phone Unknown, Notinfile Primary [...] Comments Blood Pressure 130/79 07/09/2023 4:58 AM RANCH MANAGER Pulse 86 07/09/2023 4:58 AM RANCH MANAGER Temperature 37.3 C (99.2 F) 07/09/2023 4:58 AM RANCH MANAGER Respiratory Rate 16 07/09/2023 4:58 AM RANCH MANAGER Oxygen Saturation 98% 07/09/2023 4:58 AM RANCH MANAGER Inhaled Oxygen Concentration - - Weight 110.7 kg (244 lb) 07/09/2023 4:58 AM RANCH MANAGER Height 162.6 cm (5' 4 ) 07/09/2023 4:58 AM RANCH MANAGER Body Mass Index 41.88 07/09/2023 4:58 AM RANCH MANAGER Plan of Treatment Not on file Insurance [facility] Care Teams Denial Resolution Specialist Relationship Specialty Start Date End Date Unknown, Notinfile PCP - General 01/23/23
--- OUTSIDE RECORDS SUMMARY | 2024-11-24 15:00 | XMS_ITS | Clinical Summary ---
Author Organization [facility] Address [address] [place] [address] Care Team Providers Care Wharf Tender Helper Name Role Phone Reuben Goff MD Primary Care Provider [phone] Source Comments [facility],non-owned Affiliates and Associated Physician Practices is amultiple site organization consisting of ambulatory clinics and hospital sitesin [place], [place], [place] and [place]. This disclosure is being madepursuant to the Care Everywhere program and may not contain all information available regarding this patient. Last updated 18.[facility] Allergies No known active allergies Medications * [...] PM CDT Pulse 69 08/29/2018 12:00 PM LAWN SERVICE MANAGER Temperature 36.3 C (97.3 F) 06/29/2020 11:36 AM CDT Respiratory Rate 16 12/12/2016 12:06 PM CDT Oxygen Saturation 97% 08/29/2018 12:00 PM LAWN SERVICE MANAGER Inhaled Oxygen Concentration - - Weight [...] a test for HCV RNA (test code 46295) is suggested. For additional information please refer to http://education.Submittable/faq/WOY13w2 (This link is being provided for informational/ educational purposes only.) Test Performed at: [facility] [address] [place] [address] BERNARD FREITAS DO,MPH Blood BLOOD SPECIMEN / Unknown 06/29/2020 11:53 AM CDT 06/29/2020 11:53 AM CDT Maru Maria APRN-CNM LAB - CHEM ISTRY ORDERABLES [facility] [address] [place] [address] * HIV-1 HIV-2 ANTIBODY + HIV P24 [...] purpose. For additional information please refer to http://education.Submittable/faq/QHX229 (This link is being provided for informational/ educational purposes only.) The performance of this assay has not been clinically validated in patients less than 2 years old. Test Performed at: [facility] [address] [place] [address] BERNARD FREITAS DO,MPH Blood BLOOD SPECIMEN / Unknown 06/29/2020 11:53 AM CDT 06/29/2020 11:53 AM CDT Maru Freeman [employer]-CNM LAB - CHEM ISTRY ORDERABLES Performing Organization Address City/State/[facility] Co de Phone Number [facility] [address] [place] [address] * PAP IMAGE-GUIDED LIQUID BASE RFLX HPV+CT/NG (12/12/2018 11:12 AM CDT) Case Report Gynecologic Cytology Report Case: [id number] Authorizing Provider: Ivett Ray, Collected: 12/12/2018 11:12 AM Ordering Location: [facility] Obstetrics Received: 12/13/2018 11:12 AM Gynecology and [...] 1:15 PM CDT [facility] Interpretation DISTRIBUTION SPECIALIST Negative for intraepithelial lesion or malignancy. 12/18/2018 1:15 PM CDT [facility] Pap Footnote This specimen was evaluated by the [employer] Imaging System along with the an additional manual rescreening by a sign language translator and/or pathologist. 12/18/2018 1:15 PM CDT [facility] Embedded Images 9 1:15 PM CDT [facility] Pathology/Cytolo gy ENTIRE ENDOCERVIX / Unknown 12/12/2018 11:12 AM CDT 12/13/2018 11:12 AM CDT Ivett Ray MD LAB - PATHOL OGY/CYTOLOGY ORDERABLES [facility] [address] [place], [place] [id number] [place] [address] from Last 3 Months or Most Recently Relevant to Health Maintenance Care Teams Wharf Tender Helper Relationship Specialty Start Date End Date Reuben Goff MD [address] [place] [address] PCP - General 02/14/18
--- OUTSIDE RECORDS SUMMARY | 2024-11-24 15:00 | XMS_ITS | Clinical Summary ---
Author Organization [facility] [employer] Address [address] [place] [address] Care Team Providers Care Correctional Medicine Physician Name Role Phone Unavailable Primary Care Provider [...] 09/05/201901/24 Assessment & Plan (10/06/2021 12:38 PM VARYING EXCEPTIONALITIES TEACHER): Patient has non-specific depression on problem list or past encounter, a positive PHQ-9 or antidepressant on medication list. Every Word Counts - Depression ([facility]) Immunizations Immunization Administration Dates Next Due [...] Comments Blood Pressure 104/70 09/14/2020 1:02 PM VARYING EXCEPTIONALITIES TEACHER Pulse 85 09/14/2020 1:02 PM VARYING EXCEPTIONALITIES TEACHER Temperature 36.8 C (98.2 F) 09/14/2020 1:02 PM VARYING EXCEPTIONALITIES TEACHER Respiratory Rate 18 09/14/2020 1:02 PM VARYING EXCEPTIONALITIES TEACHER Oxygen Saturation 98% 09/14/2020 1:02 PM VARYING EXCEPTIONALITIES TEACHER Inhaled Oxygen Concentration - - Weight 109.3 kg (241 lb) 09/14/2020 1:02 PM VARYING EXCEPTIONALITIES TEACHER Height 162.6 cm (5' 4 ) 09/14/2020 1:02 PM VARYING EXCEPTIONALITIES TEACHER Body Mass Index 41.37 09/14/2020 1:02 PM VARYING EXCEPTIONALITIES TEACHER Plan of Treatment Health Maintenance Due Date Last Done Comments DTAP/TDAP/TD VACCINES (7 - Td or Tdap) 04/30/2017 04/30/2007, 04/22/1999, 08/18/1995, Additional history exists PAP SMEAR 12/12/2021 12/12/2018 INFLUENZA VACCINE (#1) 2024 06/09/2019 CERVICAL CANCER SCREENING 2024 HPV/Cotest 2024 PAP SMEAR 2024 12/12/2018, 02/0 09/2018 (Previously completed) HEPATITIS B VACCINES Completed 08/18/1995, 1994, 1994 HPV VACCINES Aged Out No longer eligi ble based on patient's age to complete this topic PNEUMOCOCCAL VACCINE 0-49 YEARS Aged Out No longer eligible based on patient's age to complete this topic Advance Directives For more information, please contact: [phone] * Full Code (Latest Code Status on File) Date Activated Date Inactivated Comments 10/10/2019 11:11 AM 10/10/2019 2:57 PM
--- OUTSIDE RECORDS SUMMARY | 2024-11-24 15:01 | XMS_ITS | Clinical Summary ---
Author Organization [facility] Address [address] [place] [address] Phone Care Team Providers Care Food Service Hotel Runner Name Role Phone Cindy Jackson PAC Unavailable [...] Comments Blood Pressure 104/60 10/30/2023 2:31 PM TABLET MAKING MACHINE OPERATOR HELPER Pulse 92 10/30/2023 2:31 PM TABLET MAKING MACHINE OPERATOR HELPER Temperature 36.4 C (97.5 F) 10/30/2023 2:31 PM TABLET MAKING MACHINE OPERATOR HELPER Respiratory Rate 12 10/30/2023 2:31 PM TABLET MAKING MACHINE OPERATOR HELPER Oxygen Saturation 96% 10/30/2023 2:31 PM TABLET MAKING MACHINE OPERATOR HELPER Inhaled Oxygen Concentration - - Weight 98.9 kg (218 lb) 10/24/2023 3:40 PM TABLET MAKING MACHINE OPERATOR HELPER Height 162.6 cm (5' 4 ) 10/24/2023 3:40 PM TABLET MAKING MACHINE OPERATOR HELPER Body Mass Index 37.42 10/24/2023 3:40 PM TABLET MAKING MACHINE OPERATOR HELPER Plan of Treatment Upcoming Encounters Date Type Department Care Team (Late st Contact Info) Description 12/08/2024 9:00 AM CDT Office Visit [facility] - Internal Medicine - [place] [address] [place] [address] Cindy Jacksonelle, PAC [address] [place] [address] Health Maintenance Due Date Last Done Comments [...] Health Behavioral Health On track(2023 3:13 PM TABLET MAKING MACHINE OPERATOR HELPER) Yes Kenzie Miller, PICKER AND PACKER Note: I see nothing good in myself. I want to change that. I want to be happy again. Goal Reviewed with: patient today Readiness to change: Ready to change Department associated with goal: [facility] Steps to achieve [...] Health Behavioral Health On track(2023 3:13 PM TABLET MAKING MACHINE OPERATOR HELPER) Kenzie Ramsey LCSW Note: Summer will report an improvement in mood Goal Reviewed with: patient today Readiness to change: Ready to change Department associated with goal: [facility] Steps to achieve [...] HEPATITIS C ANTIBODY Routine 10/25/2023 3:42 PM TABLET MAKING MACHINE OPERATOR HELPER STD exposure from Last 3 Months or Most Recently Relevant to Health Maintenance Results * HEPATITIS C ANTIBODY (10/25/2023 3:42 PM TABLET MAKING MACHINE OPERATOR HELPER) hepatitis C antibody 0.06 <1 S/CO [facility] ARCH [id number] B 10/26/2023 2:42 PM TABLET MAKING MACHINE OPERATOR HELPER [facility] Comment: Signal/Cutoff ratio < 0.79 is Nondetected Signal/Cutoff ratio 0.80-0.99 is Grayzone Signal/Cutoff ratio > 0.99 is Detected Supplemental assays are recommended if signal/cutoff ratio is >/=1.00. Signal/cutoff ratio result >/= 5.00 is 97% predictive of positivity for recombinant immunoblot assay (RIBA) and will be reported to the [place] [facility] as required. Blood Venipuncture / Unknown 10/25/2023 3:42 PM TABLET MAKING MACHINE OPERATOR HELPER 10/25/2023 3:42 PM TABLET MAKING MACHINE OPERATOR HELPER us Cindy Jackson PAC CHEMISTRY ORDERAB LES Final Result [facility] [address] [place] [address], [place] from Last 3 Months or Most Recently Relevant to Health Maintenance Insurance [place]ICAID [place] Care Teams Food Service Hotel Runner Relationship Specialty Start Date End Date Cindy Jackson, PAC [address] [place] [address] PCP - General Physician Power Reactor Supervisor 09/15/22 Cindy Jackson, PAC [address] [place] [address] Physician Power Reactor Supervisor Physician Power Reactor Supervisor 09/08/22
--- OUTSIDE RECORDS SUMMARY | 2024-11-24 15:01 | XMS_ITS | Clinical Summary ---
Author Organization [facility] Address [address] [place] [address] Care Team Providers Care Card Reader Name Role Phone Unknown, Notinfile Primary Care [...] Comments Blood Pressure 130/79 07/09/2023 4:58 AM MASSAGE OPERATOR Pulse 86 07/09/2023 4:58 AM MASSAGE OPERATOR Temperature 37.3 C (99.2 F) 07/09/2023 4:58 AM MASSAGE OPERATOR Respiratory Rate 16 07/09/2023 4:58 AM MASSAGE OPERATOR Oxygen Saturation 98% 07/09/2023 4:58 AM MASSAGE OPERATOR Inhaled Oxygen Concentration - - Weight 110.7 kg (244 lb) 07/09/2023 4:58 AM MASSAGE OPERATOR Height 162.6 cm (5' 4 ) 07/09/2023 4:58 AM MASSAGE OPERATOR Body Mass Index 41.88 07/09/2023 4:58 AM MASSAGE OPERATOR Plan of Treatment Health Maintenance Due Date [...] patient's age to complete this topic Insurance [facility] Care Teams Card Reader Relationship Specialty Start Date End Date Unknown, Notinfile PCP - General 01/23/23
== END 2024-11-24 13:13 | disposition home or self-care (01) ==
LOC: ANHBWCIMG 13:13
PROVIDERS: PCP Physician Assistant; Visit Provider Orthopaedic Surgery
DX: S92.335A Nondisplaced fracture of third metatarsal bone, left foot, initial encounter for closed fracture (principal); S92.345A Nondisplaced fracture of fourth metatarsal bone, left foot, initial encounter for closed fracture; X58.XXXA Exposure to other specified factors, initial encounter
CPT/HCPCS: 73630

== ENCOUNTER 2024-12-08 13:07 | Outpatient (CLI) | payer BC, SELFPAY ==
--- NOTE | ~2024-12-08 | XR_ITS ---
Left foot Technique: AP, oblique, and lateral views were obtained. Clinical History: Fracture follow-up COMPARISON: 11/24/2024 Findings: Mild interval healing of fractures of the distal third and fourth metatarsal necks. Stable alignment. Joint spaces are preserved without erosive or degenerative change. Soft tissues are unrema rkable. Impression: Mild interval healing of fractures of the distal third and fourth metatarsal necks. Reviewed, dictated and finalized at location . Impression: Mild interval healing of fractures of the distal third and fourth metatarsal ne cks.
--- OUTSIDE RECORDS SUMMARY | 2024-12-08 14:56 | XMS_ITS | Referral Summary ---
Author Organization [facility] Address [address] [place] [address] Care Team Providers Care Directional Driller Name Role Phone Unknown, Notinfile Primary Care [...] Comments Blood Pressure 130/79 07/09/2023 4:58 AM SOLID WASTE ANALYST Pulse 86 07/09/2023 4:58 AM SOLID WASTE ANALYST Temperature 37.3 C (99.2 F) 07/09/2023 4:58 AM SOLID WASTE ANALYST Respiratory Rate 16 07/09/2023 4:58 AM SOLID WASTE ANALYST Oxygen Saturation 98% 07/09/2023 4:58 AM SOLID WASTE ANALYST Inhaled Oxygen Concentration - - Weight 110.7 kg (244 lb) 07/09/2023 4:58 AM SOLID WASTE ANALYST Height 162.6 cm (5' 4 ) 07/09/2023 4:58 AM SOLID WASTE ANALYST Body Mass Index 41.88 07/09/2023 4:58 AM SOLID WASTE ANALYST Plan of Treatment Not on file Insurance [facility] Care Teams Directional Driller Relationship Specialty Start Date End Date Unknown, Notinfile PCP - General 01/23/23
--- OUTSIDE RECORDS SUMMARY | 2024-12-08 14:56 | XMS_ITS | Clinical Summary ---
Author Organization [facility] Address [address] [place] [address] Care Team Providers Care Electrostatic Painter Name Role Phone Unknown, Notinfile Primary Care [...] Comments Blood Pressure 130/79 07/09/2023 4:58 AM WESTERN FELT HAT BLOCKER Pulse 86 07/09/2023 4:58 AM WESTERN FELT HAT BLOCKER Temperature 37.3 C (99.2 F) 07/09/2023 4:58 AM WESTERN FELT HAT BLOCKER Respiratory Rate 16 07/09/2023 4:58 AM WESTERN FELT HAT BLOCKER Oxygen Saturation 98% 07/09/2023 4:58 AM WESTERN FELT HAT BLOCKER Inhaled Oxygen Concentration - - Weight 110.7 kg (244 lb) 07/09/2023 4:58 AM WESTERN FELT HAT BLOCKER Height 162.6 cm (5' 4 ) 07/09/2023 4:58 AM WESTERN FELT HAT BLOCKER Body Mass Index 41.88 07/09/2023 4:58 AM WESTERN FELT HAT BLOCKER Plan of Treatment Health Maintenance Due Date Last Done Comments Cervical Cancer Screening 1994 Depression Screening 1994 Hepatitis C Screening 1994 Regular Well Visit/Exam 18-64 2012 HPV Vaccines (2 - 3-dose series) 12/28/2014 11/30/2014 Influenza Vaccine (Season Ended) 2025 06/28/2022 DTaP/Tdap/Td Vaccine (8 - Td or Tdap) 06/28/2032 06/28/2022, 04/30/2007, 04/22/1999, Additional history exists Hepatitis B Screening Completed 08/18/1995 , 08/18/1995, 1994, Additional history exists Varicella Vaccines Completed 04/30/2007, 04/22/1999 Pneumococcal vaccine <65 Aged Out No longer eligible based on patient's age to complete this topic Insurance [facility] Care Teams Electrostatic Painter Relationship Specialty Start Date End Date Unknown, Notinfile PCP - General 01/23/23
--- OUTSIDE RECORDS SUMMARY | 2024-12-08 14:56 | XMS_ITS | Data Portability ---
Author Organization [facility] Camila Hwang Address [address] [place] [address] Assessment No assessment recorded. Plan of Treatment Reminders Order Date Submit Date Provider Last Modified By Organization Details Last Modified Time Details Appointments None record ed. Lab pregna ncy test, urine 2023 024 [email or web address] In-Office Order, Internal Use Only DO Not Attach Compendium DO Not Attach Compendium, Do Not Delete/merge, [id number] 4 14:10:53 pregna ncy test, urine 2023 024 [email or web address] In-Office Order, Internal Use Only DO Not Attach Compendium DO Not Attach Compendium, Do Not Delete/merge, [id number] 4 12:32:11 vagina l pathog ens panel, CHRIS+pr obe, vagina l fluid 2023 024 RON [facility], [address], [place], [address], 4 07:13:24 pap, IG + HPV, cervic al 2023 024 RON [facility], [address], [place], [address], 4 10:09:40 Referral None record ed. Procedures insert ion, intrau terine device (PROC) 2023 024 [email or web address] Not available 4 13:16:02 remova l, intrau terine device (PROC) 2023 024 [email or web address] Not available 12:36:11 Surgeries None record ed. Imaging None record ed. Medication Orders Mirena 21 mcg/24 hr (up to 8 years) 52 mg intrau terine device 2023 [email or web address] [id number], [address] [facility], [place], [address], 14:10:52 Prenat al 28 mg iron-8 00 mcg tablet 2023 RON [id number], [address] [facility], [place], [address], 10:02:22 Patient TargetsNo targets recorded. Patient Instructions Encounter Date Encounter Id Patient Instructions Last Modified By Organization Details Last Modified Time 08/16/2023 [id number] A healthy lifestyle: care instructions [email or web address] Not [...] clinic for IUD exchange. Taylor Hurtado MD [email or web address] Not available 08/20/2023 16:28:33 12/17/2023 [id number] Attending Physician Attestation I personally saw and [...] 2 score abnormal Not Available [facility] ([facility]) [address] [facility], [place], [address], 09/07/2023 07:13:24 09/05/19 24 09/06/2023 NUSWA B VAGIN ITIS PLUS (VG+) bvab 2 High - 2 score abnormal Not Available [facility] ([facility]) [address] [place], [address], 09/07/2023 07:13:24 09/05/19 24 09/06/2023 NUA B [...] Admin istra tion. Not Available [facility] ([facility]) [address] [facility], [place], [address], 09/07/2023 07:13:24 09/05/19 24 09/06/2023 NUA B VAGIN ITIS PLUS (VG+) massimo albicans, CHRIS Negati ve negati ve Not Available [facility] ([facility]) [address] [place], [address], 09/07/2023 07:13:24 09/05/19 24 09/06/2023 NUA B VAGIN ITIS PLUS (VG+) massimo glabrata, CHRIS Negati ve negati ve Not Available [facility] ([facility]) [address] [place], [address], 09/07/2023 07:13:24 09/05/19 24 09/07/2023 NUA B VAGIN ITIS PLUS (VG+) trich vag by CHRIS Negati ve negati ve Not Available [facility] ([facility]) [address] [place], [address], 09/07/2023 07:13:24 09/05/19 24 09/07/2023 NUA B VAGIN ITIS PLUS (VG+) chlamydia trachomatis, CHRIS Negati ve negati ve Not Available [facility] ([facility]) [address] [facility], [place], [address], 09/07/2023 07:13:24 09/05/19 24 09/07/2023 NUA B VAGIN ITIS PLUS (VG+) neisseria gonorrhoeae, CHRIS Negati ve negati ve Not Available [facility] ([facility]) [address] [facility], [place], [address], 09/07/2023 07:13:24 09/05/19 24 09/07/2023 IGP, APTIM A HPV HPV aptima Negati ve negati ve This nucle ic acid ampli ficat ion test detec ts fourt een high- risk HPV types (16,1 8,31, 33,35 ,39,4 5,51, 52,56 ,58,5 9,66, 68) witho ut diffe renti ation . Not Available [facility] ([facility]) [address] [facility], [place], [address], 09/10/2023 10:09:40 09/05/19 24 09/10/2023 IGP, APTIM A HPV diagnosis: Renu ALCARAZ FOR EVALU ATION . Not Available [facility] ([facility]) [address] [place], [address], 09/10/2023 10:09:40 09/05/19 24 09/10/2023 IGP, APTIM A HPV recommendati on: Commen t Sugge st follo w up as clini jay appro priat e. Not Available [facility] ([facility]) [address] [facility], [place], [address], 09/10/2023 10:09:40 09/05/19 24 09/10/2023 IGP, APTIM A HPV specimen adequacy: Renu wilson Speci men proce ssed and exami mahnaz, but unsat isfac tory for evalu ation of epith elial abnor malit y becau se of exces sive lubri cant. Not Available [facility] ([facility]) [address] [facility], [place], [address], 09/10/2023 10:09:40 09/05/19 24 09/10/2023 IGP, APTIM A HPV performed by: Renu severino, Cytot echno logis t (ASCP ) Not Available [facility] ([facility]) [address] [facility], [place], [address], 09/10/2023 10:09:40 09/05/19 24 09/10/2023 IGP, APTIM A HPV QC reviewed by: Sangita Jefferson y Cytot echno logis t (ASCP ) Not Available [facility] ([facility]) [address] [facility], [place], [address], 09/10/2023 10:09:40 09/05/19 24 09/10/2023 IGP, APTIM A HPV . . Not Available [facility] ([facility]) [address] [facility], [place], [address], 09/10/2023 10:09:40 09/05/19 24 09/10/2023 IGP, APTIM A HPV note: eRnu wilson The Pap smear is a scree mireille test desig mahnaz to aid in the detec tion of joan ligna nt and malig nant condi tions of the uteri ne cervi x. It is not a diagn ostic proce dure and shoul d not be used as the sole means of detec ting cervi thirery cance r. Both false -posi tive and false -nega tive repor ts do occur . Not Available [facility] ([facility]) [address] [facility], [place], [address], 09/10/2023 10:09:40 09/05/19 24 09/10/2023 IGP, APTIM A HPV test methodology: Commen t This liqui d based ThinP rep(R ) pap test was scree mahnaz with the use of an image guide d syste m. Not Available [facility] ([facility]) [address] [facility], [place], [address], 09/10/2023 10:09:40 09/05/19 24 09/05/2023 pregn emelina test, urine HCG negati ve Not Available In-Office Order Internal Use Only DO Not Attach Compendium DO Not Attach Compendium, Do Not Delete/merge, [id number] 09/05/2023 11:44:46 12/17/19 24 12/17/2023 pregn emelina test, urine HCG negati ve Not Available In-Office Order Internal Use Only DO Not Attach Compendium DO Not Attach Compendium, Do Not Delete/merge, [id number] 12/17/2023 11:54:24 Result Notes None recorded. Problems Name Problem SNOMED Code Status Onset Date Resolution Date Notes Provider Name and Address Organization Details Recorded Time Mixed anxiety and depressive disorder 508754545 Active 023 ROLANDO UMANA DO Attn: Skyler g,[address] [facility], [place], [address], [place] 3 18:42:49 Problem Notes None recorded. Procedures Surgical History Date Name Laterality Status Provider Name and Address Organization Details Recorded Time 4 IUD Insertion completed Gama Torres MD Attn: Accounting,[address] [facility], [place], [address], [place] 12/17/2023 11:06:06 4 IUD Removal completed JODIE MENDOZA MD Attn: Accounting[address] , [place], [address], [place] [facility] 09/05/2023 12:57:59 3 Breast reduction completed Iman Villa MA [facility] 08/16/2023 14:40:11 excision of lymph node completed Iman Villa MA [facility] 08/16/2023 14:40:25 Imaging Results None recorded. Procedure [...] Updated DateTime 3 162.56 cm 40.3 kg/m2 866680. 21 g 97.9 [degF] 78 /min 98 % 98 % 16 /min 111 mm[Hg] 76 mm[Hg] Iman Villa MA [facility] 3 14:37:45 Date Recorded Body height Body temperature Body mass index (BMI) Body weight Heart rate Respiratory rate Systolic blood pressure Diastolic blood pressure Provider Name and Address Organization Details Last Updated DateTime 4 162.56 cm 97.5 [degF] 40.4 kg/m2 233849. 01 g 79 /min 16 /min 101 mm[Hg] 69 mm[Hg] Jazmin Guy MA [facility] 4 11:44:31 Date Recorded Body height Body mass index (BMI) Body weight Body temperature Heart rate Respiratory rate Oxygen saturation Oxygen saturation in Arterial blood by Pulse oximetry Systolic blood pressure Diastolic blood pressure Provider Name and Address Organization Details Last Updated DateTime 4 162.56 cm 37.1 kg/m2 32776.3 5 g 97.7 [degF] 70 /min 16 /min 98 % 98 % 116 mm[Hg] 74 mm[Hg] Britany Olivier MA [facility] 4 10:01:10 Date Recorded Body height Body mass index (BMI) Body weight Respiratory rate Body temperature Oxygen saturation Oxygen saturation in Arterial blood by Pulse oximetry Heart rate Systolic blood pressure Diastolic blood pressure Provider Name and Address Organization Details Last Updated DateTime 4 162.56 cm 36.8 kg/m2 74877.2 2 g 18 /min 97.9 [degF] 97 % 97 % 71 /min 106 mm[Hg] 73 mm[Hg] Josseline Clayton [facility] 4 11:33:38 Social History Question Answer Notes LastModified by Organizat ion Details LastModified Time Tobacco Smoking Status Never Smoker Iman Villa MA null, [facility] 08/16/2023 14:39:20 What Is Your Level Of Alcohol Consumption? Occasional Information not available 08/16/2023 In The 14 Days Before Symptom Onset, Have You Had Close Contact With A Laboratory-confir med COVID-19 While That Case Was Ill? No [email or web address] Information not available 01/03/2024 In The 14 Days Before Symptom Onset, Have You Had Close Contact With A Person Who Is Under Investigation For COVID-19 While That Person Was Ill? No Information not available 01/03/2024 Have You Been To An Area Known To Be High Risk For COVID-19? No [email or web address] Information not available 01/03/2024 Do You Or Have You Ever Used E-cigarettes Or Vape? Current User Of Electronic Cigarettes Information not available 08/16/2023 What Was The Date Of Your Most Recent Tobacco Screening? 01/03/2024 [email or web address] Information not available 01/03/2024 Are You Sexually Active? Yes [email or web address] Information not available 01/03/2024 Do You Have Smoke And Carbon Monoxide Detectors In Your Home? Yes [email or web address] Information not available 01/03/2024 Are You Passively Exposed To Smoke? Yes [email or web address] Information no t available 01/03/2024 Do You Use Any Illicit Or Recreational Drugs? No Information not available 08/16/2023 Has Tobacco Cessation Counseling Been Provided? Yes [email or web address] Information not available 09/05/2023 On What Date Was Tobacco Cessation Counseling Provided? 01/03/2024 [email or web address] Information not available 01/03/2024 Do You Or [...] Response Coronary Artery Disease N Other N High Blood Pressure N Atrial Fibrillation N Thyroid Problems N Kidney or Bladder Problems N GI Problems N Depression Y COPD N Blood Clots N Skin Problems N Anemia N Heart Attack (OK) N Diabetes N Anxiety Disorder N Muscle, Joint, or Bone Problems N Seizures/Epilepsy N Acid Reflux (GERD) N Cancer N Stroke N Asthma Y Allergies N High Cholesterol N Hepatitis N Liver Disease N Headaches N Osteoporosis N Heart Failure N Gynecological History Statement/Question Response Menses Monthly N Age at Menarche 12 Current Control Method IUD Date of LMP 12/23/2023 LMP Approximate Obstetrics History GPAL:G 0 P 0 0 0 0 Past Encounters Encounter ID Performer Location Encounter Start Date Encounter Closed Date Diagnosis/Indication Diagnosis SNOMED-CT Code Diagnosis ICD10 Code Diagnosis Note [id number] MD Carlos Tran 14 IM [address] [facility] [place] [address] 08/16/2023 14:16:03 08/21/2023 15:40:49 Contraception care management 017951629 Z30.9 Has state insuranceC an use mirena IUD from office supplyNeed s pap at same time Adult heal th examination 353886883 Z00.00 Discussed anticipato ry guidance Health maintenanc e includes STI testing. She has already been tested for HIV and syphilis in the past and negative. Will obtain swab when she comes back for her Pap smear. Mixed anxi ety and depressive disorder 595042596 F41.8 On Paroxetine Managed by other provider Obesity 675243745 E66.9 Healthy lifestyle encouraged including regular exercise of at least 150min per week, diet rich in plant based foods and low in added sugars, processed carbohydra kelley, and high salt foods. Encouraged protein intake mostly with chicken and white fish and limited red meat. Electronic cigarette user 863977903 Z72.89 Discussed cessation [id number] MD Carlos Desir 14 IM [address] [facility] [place] [address] 09/05/2023 11:10:23 09/06/2023 08:51:20 Screening for malignant neoplasm of cervix 304918831 Z12.4 Patient tolerated pap smear and removal of IUD but changed her mind about new IUD insertion. No new iud was inserted. Patient to follow up and decide if she wants a nexplanon instead.Shaun thomas states she is not sexually active currently so she wants more time to think about it. [id number] MD Carlos TORRES 14 IM [address] [facility] [place] [address] 12/17/2023 09:52:05 12/21/2023 13:42:58 Contraception care management 519481287 Z30.9 Successful placement of IUD. No complicati ons. preg test negative prior to placing. Pt declined STI testing. Has been done this past year. Plan- Good for 8 years- Use condoms for 1 week to prevent - String check 2 weeks- Fertility will be restored when removed [id number] MD Carlos Desir 14 IM [address] [facility] [place] [address] 01/03/2024 11:18:01 01/10/2024 10:01:32 IUD check 541964045 Z30.[address]gave reassuranc e about [...] Bruce Member ID Guarantor Name 08/16/2023 2 [facility] (MEDICAID HMO) [id number] Staci Haines [id number] Staci Haines 09/05/2023 2 [facility] (MEDICAID HMO) [id number] Staci Haines [id number] Staci Haines 12/17/2023 2 [facility] (MEDICAID HMO) [id number] Staci Haines [id number] Staci Haines 01/03/2024 2 [facility] (MEDICAID HMO) [id number] 0003 Staci Haines [id number] Staci Haines Notes Date Note Type Note [...] successfully Taylor Hurtado MD Attn: Accounting,[address] [facility], [place], [address], [facility] - [facility] 08/20/2023 16:28:54 4 text/html 28 yo with no pmh present to clinic for a routine pap, iud removal and insertion. Patient states last pap was 2 yo. Prev iud was placed 5 -6 years ago. Patient was denies being sexually active currentlyPatient denies history ofbreast canceruterine cavity abnormalityheart conditionsabnormal uterine bleedingliver abnormalities. Brenda Drake MD Attn: Accounting,[address] [facility], [place], [address], [facility] - [facility] 09/05/2023 23:16:25 4 text/html CC: IUD Mirena placement Procedure for custodial control options discussed including Nexplanon, Mirena IUD [...] UTD. NADEGE PURDY MD Attn: Accounting,[address] [facility], [place], [address], [facility] - [facility] 12/19/2023 13:29:32 4 text/html 28 [...] hours. Brenda Drake MD Attn: Accounting[address] [place], [address], [facility] - [facility] 01/03/2024 21:14:19 OBGyn Episode No OBEpisode recorded.
--- OUTSIDE RECORDS SUMMARY | 2024-12-08 14:56 | XMS_ITS | Clinical Summary ---
Author Organization [facility] Address [address] [place] [address] Phone Care Team Providers Care Iuss Master Analyst Name Role Phone Cindy Jackson PAC Unavailable [...] Comments Blood Pressure 104/60 10/30/2023 2:31 PM VICE PRESIDENT NETWORK Pulse 92 10/30/2023 2:31 PM VICE PRESIDENT NETWORK Temperature 36.4 C (97.5 F) 10/30/2023 2:31 PM VICE PRESIDENT NETWORK Respiratory Rate 12 10/30/2023 2:31 PM VICE PRESIDENT NETWORK Oxygen Saturation 96% 10/30/2023 2:31 PM VICE PRESIDENT NETWORK Inhaled Oxygen Concentration - - Weight 98.9 kg (218 lb) 10/24/2023 3:40 PM VICE PRESIDENT NETWORK Height 162.6 cm (5' 4 ) 10/24/2023 3:40 PM VICE PRESIDENT NETWORK Body Mass Index 37.42 10/24/2023 3:40 PM VICE PRESIDENT NETWORK Plan of Treatment Health Maintenance Due Date Last Done Comments Pap Smear 12/12/2021 12/12/2018 Cervical Cancer Screening (CCS) 2024 HPV/Cotest 2024 SARS-COV-2 Immunization ( season) 2024 01/04/2021, 12/07/2020 Influenza Immunization (Season Ended) 2025 06/28/2022 DTaP/Tdap/Td Immunization (8 - Td or Tdap) [...] Health Behavioral Health On track(2023 3:13 PM VICE PRESIDENT NETWORK) Yes Kenzie Miller, ANTICHECKING IRON WORKER Note: I see nothing good in myself. I want to change that. I want to be happy again. Goal Reviewed with: patient today Readiness to change: Ready to change Department associated with goal: [facility] Steps to achieve goal: [...] Health Behavioral Health On track(2023 3:13 PM VICE PRESIDENT NETWORK) No Kenzie Miller, ANTICHECKING IRON WORKER Note: Summer will report an improvement in mood Goal Reviewed with: patient today Readiness to change: Ready to change Department associated with goal: [facility] Steps to achieve goal: [...] Procedure Name Priority Date/Time Associated Diagnosis Comments XR - LOWER EXTREMITY 11/24/2024 12:00 AM CDT HEPATITIS C ANTIBODY Routine 10/25/2023 3:42 PM VICE PRESIDENT NETWORK STD exposure from Last 3 Months or Most Recently Relevant to Health Maintenance Results * XR - LOWER EXTREMITY (11/24/2024 12:00 AM CDT) 11/24/2024 us Provider Scan IMG DIAGNOSTIC ORDERABLES Final Result SCAN * HEPATITIS C ANTIBODY (10/25/2023 3:42 PM VICE PRESIDENT NETWORK) hepatitis C antibody 0.06 <1 S/CO [facility] ARCH [id number] B 10/26/2023 2:42 PM VICE PRESIDENT NETWORK [facility] Comment: Signal/Cutoff ratio < 0.79 is Nondetected Signal/Cutoff ratio 0.80-0.99 is Grayzone Signal/Cutoff ratio > 0.99 is Detected Supplemental assays are recommended if signal/cutoff ratio is >/=1.00. Signal/cutoff ratio result >/= 5.00 is 97% predictive of positivity for recombinant immunoblot assay (RIBA) and will be reported to the [place] Department of Public [facility] as required. Blood Venipuncture / Unknown 10/25/2023 3:42 PM VICE PRESIDENT NETWORK 10/25/2023 3:42 PM VICE PRESIDENT NETWORK us Cindy Jackson PAC CHEMISTRY ORDERAB LES Final Result [facility] [address] [place] [address], [place] from Last 3 Months or Most Recently Relevant to Health Maintenance Insurance [place]ID [place] [address] Care Teams Iuss Master Analyst Relationship Specialty Start Date End Date Cindy Jackson, TATIANA [address] [place] [address] PCP - General Physician Punchboard Inserter 09/15/22 Cindy Jackson, TATIANA [address] [place] [address] Physician Punchboard Inserter Physician Punchboard Inserter 09/08/22
--- OUTSIDE RECORDS SUMMARY | 2024-12-08 14:56 | XMS_ITS | Clinical Summary ---
Author Organization [facility] [employer] Address [address] [place] [place] [address] Care Team Providers Care Consultants Intern Name Role Phone Reuben Goff MD Primary Care Provider [phone] Source Comments [facility],non-owned Affiliates and Associated Physician Practices is amultiple site organization consisting of ambulatory clinics and hospital sitesin [place], [place], [place] and [place]. This disclosure is being madepursuant to the Care Everywhere program and may not contain all information available regarding this patient. Last updated 18.[facility] Allergies No known active allergies Medications * [...] PM CDT Pulse 69 08/29/2018 12:00 PM TEACHING AIDE Temperature 36.3 C (97.3 F) 06/29/2020 11:36 AM CDT Respiratory Rate 16 12/12/2016 12:06 PM CDT Oxygen Saturation 97% 08/29/2018 12:00 PM TEACHING AIDE Inhaled Oxygen Concentration - - Weight 108.4 [...] 2013 PAP SMEAR 12/12/2021 12/12/2018 COVID-19 VACCINE (1 - 2023-2 5 season) 2024 DEPRESSION SCREENING 09/03/2024 INFLUENZA VACCINE (Season Ended) 2025 ZOSTER VACCINE (1 of 2) 2044 HEPATITIS [...] a test for HCV RNA (test code 95259) is suggested. For additional information please refer to http://education.Nextlanding/faq/RHL34t3 (This link is being provided for informational/ educational purposes only.) Test Performed at: [facility] [address] [place] [address] BERNARD FREITAS DO,MPH Blood BLOOD SPECIMEN / Unknown 06/29/2020 11:53 AM CDT 06/29/2020 11:53 AM CDT Maru Maria APRN-CNM LAB - CHEM ISTRY ORDERABLES [facility] [address] [place] [address] * HIV-1 HIV-2 ANTIBODY + HIV P24 [...] purpose. For additional information please refer to http://education.Nextlanding/faq/WSX346 (This link is being provided for informational/ educational purposes only.) The performance of this assay has not been clinically validated in patients less than 2 years old. Test Performed at: [facility] [address] [place] [address] BERNARD FREITAS DO,MPH Blood BLOOD SPECIMEN / Unknown 06/29/2020 11:53 AM CDT 06/29/2020 11:53 AM CDT Maru Freeman Crow SCHOOL BUS AIDE-CNM LAB - CHEM ISTRY ORDERABLES Performing Organization Address City/State/[facility] Co de Phone Number [facility] [address] [place] [address] * PAP IMAGE-GUIDED LIQUID BASE RFLX HPV+CT/NG (12/12/2018 11:12 AM CDT) Case Report Gynecologic Cytology Report Case: [id number] Authorizing Provider: Ivett Ray, Collected: 12/12/2018 11:12 AM Ordering Location: [facility] Obstetrics Received: 12/13/2018 11:12 AM Gynecology and [...] 1:15 PM CDT [facility] Interpretation GLIDING PILOT INSTRUCTOR Negative for intraepithelial lesion or malignancy. 12/18/2018 1:15 PM CDT [facility] Pap Footnote This specimen was evaluated by the [facility] System along with the an additional manual rescreening by a case folder and/or pathologist. 12/18/2018 1:15 PM CDT [facility] Embedded Images 9 1:15 PM CDT [facility] Pathology/Cytolo gy ENTIRE ENDOCERVIX / Unknown 12/12/2018 11:12 AM CDT 12/13/2018 11:12 AM CDT Ivett Ray MD LAB - PATHOL OGY/CYTOLOGY ORDERABLES [facility] [address] [facility] [place] [id number] [place] [address] from Last 3 Months or Most Recently Relevant to Health Maintenance Care Teams Consultants Intern Relationship Specialty Start Date End Date Reuben Goff MD [address] [place] [address] PCP - General 02/14/18
--- OUTSIDE RECORDS SUMMARY | 2024-12-08 14:56 | XMS_ITS | Clinical Summary ---
Author Organization [facility] [employer] [place] Address [address] [place] [address] Care Team Providers Care Forms Builder Name Role Phone Unavailable Primary Care Provider [...] 09/05/201901/24 Assessment & Plan (10/06/2021 12:38 PM WELFARE SPECIALIST): Patient has non-specific depression on problem list or past encounter, a positive PHQ-9 or antidepressant on medication list. Every Word Counts - Depression ([facility]) Immunizations Immunization Administration Dates Next Due (ADACEL/BOOSTRIX)(10 [...] Comments Blood Pressure 104/70 09/14/2020 1:02 PM WELFARE SPECIALIST Pulse 85 09/14/2020 1:02 PM WELFARE SPECIALIST Temperature 36.8 C (98.2 F) 09/14/2020 1:02 PM WELFARE SPECIALIST Respiratory Rate 18 09/14/2020 1:02 PM WELFARE SPECIALIST Oxygen Saturation 98% 09/14/2020 1:02 PM WELFARE SPECIALIST Inhaled Oxygen Concentration - - Weight 109.3 kg (241 lb) 09/14/2020 1:02 PM WELFARE SPECIALIST Height 162.6 cm (5' 4 ) 09/14/2020 1:02 PM WELFARE SPECIALIST Body Mass Index 41.37 09/14/2020 1:02 PM WELFARE SPECIALIST Plan of Treatment Health Maintenance Due Date Last Done Comments HPV/Cotest (21-29) 2015 DTAP/TDAP/TD VACCINES (7 - Td or Tdap) 04/30/2017 04/30/2007, 04/22/1999, 08/18/1995, Additional history exists INFLUENZA VACCINE (#1) 2024 06/09/2019 CERVICAL CANCER SCREENING 2024 HPV/Cotest (30-65) 2024 PAP SMEAR 2024 12/12/2018, 0209/2018 (Previously completed) HEPATITIS B VACCINES Completed 08/18/1995, 1994, 1994 HPV VACCINES Aged Out No longer eligi ble based on patient's age to complete this topic Advance Directives For more information, please contact: [phone] * Full Code (Latest Code Status on File) Date Activated Date Inactivated Comments 10/10/2019 11:11 AM 10/10/2019 2:57 PM
== END 2024-12-08 13:08 | disposition home or self-care (01) ==
LOC: ANHBWCIMG 13:08
PROVIDERS: PCP Physician Assistant; Visit Provider Orthopaedic Surgery
DX: S92.332A Displaced fracture of third metatarsal bone, left foot, initial encounter for closed fracture (principal); S92.342A Displaced fracture of fourth metatarsal bone, left foot, initial encounter for closed fracture; X58.XXXA Exposure to other specified factors, initial encounter
CPT/HCPCS: 73630

== ENCOUNTER 2025-01-28 15:02 | Emergency (ER) | payer BC, SELFPAY ==
--- NOTE | ~2025-01-28 | US_ITS ---
FIRST TRIMESTER ULTRASOUND 01/28/2025 15:37 CDT Ordering provider: Sarah Paez PA-C History: . bleeding, . Comparison: None. FINDINGS: INTRAUTERINE GESTATIONAL SAC: Present. Measures 3.03 cm. YOLK SAC: Present. POLE: Present. Measures 1.92 cm which is equal to 8 weeks and 3 days heart rate is 167 bpm. UTERUS: The uterus measures 11.7x 1.9x 6.9 in length which is within normal limits. No myometrial mas ses. FREE FLUID: None. OVARIES: Normal in size with the right measuring 5.2x 2.9x 2.5 and the left is not demonstrated. Dopp ler flow is demonstrated within the right ovary. Follicle is seen in the right ovary measuring 1.7 x 1.6 x 1.5 cm. ADNEXAL MASSES: None. IMPRESSION: Single live intrauterine of 8 weeks and 3 days. SIMIN is September 06, 2025 Reviewed, dictated and finalized at location A.
--- OUTSIDE RECORDS SUMMARY | 2025-01-28 15:04 | XMS_ITS | Clinical Summary ---
Author Organization [facility] [employer] Address [address] [place] [address] Care Team Providers Care Hot Shot Name Role Phone Reuben Goff MD Primary Care Provider [phone] Source Comments [facility] [employer],non-owned Affiliates and Associated Physician Practices is amultiple site organization consisting of ambulatory clinics and hospital sitesin [place], [place] and [place]. This disclosure is being madepursuant to the Care Everywhere program and may not contain all information available regarding this patient. Last updated 18.[facility] [employer] Allergies No known active allergies Medications * Be aware that medications may not be up to date on this document. Alwaysverify current medications with the patient. levonorgestrel (MIRENA) 20 MCG/24HR IUD 1 Each by Intrauterine route Active albuterol HFA (PROVENTIL;VENT THOM;PROAIR) 108 (90 BASE) MCG/ACT inhalerIndicati ons:Asthma with acute exacerbation, unspecified asthma severity, unspecified whether persistent (HCC) Inhale 2 puffs by mouth every 4 hours as needed for Shortness of Breath, Wheezing or Cough 1 Inhaler 8 Active escitalopram (LEXAPRO) 20 MG tablet Take 20 mg by mouth once daily 0 Active buPROPion XL 24hr (WELLBUTRIN-XL) 150 MG tablet Take 150 mg by mouth once daily 1 Active Active Problems Estimated Date of Delivery Comme nts Yes 09/05/2025 Based on last me nstrual period of 11/29/2024 No known active problems Encounters Date Type Department Care Team Description 01/20/2025 9:41 AM CDT - 01/20/2025 11:59 PM CDT Hospital Encounter [facility]/ EVALUATION UNIT [address] [place] [address] Taylor Chang MD Discharge Disposition: Home or Self Care 01/20/2025 Travel 01/16/2025 Telephone [facility] [address] [place] [address] Akila Mauricio RN Future Appointment (Called Dr. Mcclain's office to discuss referral. ) 01/16/2025 Telephone [facility]/ EVALUATION UNIT [address] [place] [address] Jennifer Shearer patient service technician pst from Last 3 Months Family History Medical History Relation Name Comments Hypertension Mother Relation Name Status Comments Mother Social History Tobacco Use Types Packs/Day Years Used Date Smoking Tobacco: Never Smokeless Tobacco: Never Tobacco Cessation:Counseling Given: Yes Alcohol Use Standard Drinks/Week Comments Yes 0 (1 standard drink = 0.6 oz pur e alcohol) Estimated Date of Delivery Comme nts Yes 09/05/2025 Based on last me nstrual period of 11/29/2024 Sex and Gender Information Value Date Recorded Sex Assigned at Not on file Legal Sex Female 1:59 PM CDT Gender Identity Not on file Sexual Orientation Not on file Last Filed Vital Signs Vital Sign Reading Time Taken Comments Blood Pressure 124/86 02/20/2022 2:39 PM CDT Pulse 69 08/29/2018 12:00 PM SHORT GOODS DRIER Temperature 36.3 C (97.3 F) 06/29/2020 11:36 AM CDT Respiratory Rate 16 12/12/2016 12:06 PM CDT Oxygen Saturation 97% 08/29/2018 12:00 PM SHORT GOODS DRIER Inhaled Oxygen Concentration - - Weight 108.4 kg (239 lb) 02/20/2022 2:39 PM CDT Height 162.6 cm (5' 4) 02/20/2022 2:39 PM CDT Body Mass Index 41.02 02/20/2022 2:39 PM CDT Plan of Treatment Health Maintenance Due Date Last Done Comments DTAP/TDAP/TD VACCINES (1 - Tdap) 2013 HEPATITIS B VACCINE (1 of 3 - 19+ 3-dose series) 2013 PAP SMEAR 12/12/2021 12/12/2018 COVID-19 VACCINE (3 - 2023-2 5 season) 2024 01/04/2021, 12/07/2020 DEPRESSION SCREENING 09/03/2024 INFLUENZA VACCINE (Season Ended) 2025 06/28/2022 OB-TDAP CURRENT 06/06/20252021, 04/30/2007 Respiratory Syncytial Virus (RSV) Vaccine Pt: or over 60 yrs (1 - Risk 1-dose series) 07/11/2025 ZOSTER VACCINE (1 of 2) 2044 HIV SCREENING Completed 06/29/2020 HEPATITIS C SCREENING Completed 10/25/2023 , 06/29/2020 HIB VACCINE Aged Out No longer eligi ble based on patient's age to complete this topic HPV VACCINE Aged Out No longer eligi ble based on patient's age to complete this topic MENINGOCOCCAL (Group B) VACCINE SHARED DECISION-MAKING Aged Out No longer eligible based on patient's age to complete this topic MENINGOCOCCAL GROUPS A/C/Y/W VACCINE Aged Out No longer eligible b ased on patient's age to complete this topic PNEUMOCOCCAL VACCINE Aged Out No long er eligible based on patient's age to complete this topic Procedures Procedure Name Priority Date/Time Associated Diagnosis Comments SONOGRAM - COMPLETE Routine 01/20/2025 10:10 AM CDT HEPATITIS C AB W/RFLX TO HCV RNA [...] Recently Relevant to Health Maintenance Results * SONOGRAM - COMPLETE (01/20/2025 10:10 AM CDT) Linked Results Indication ======== Viability Concern for ectopic , pelvic pain Class III Obesity Asthma Depression History ====== OB History 1 Maternal Assessment Physical Exam Height 163 cm, 5 ft 4 in. Weight 115 kg, 253 lb. Initial weight 115 kg, 253 lb. BMI 43.43 kg/m . Initial BMI 43.43 kg/m . Weight gain 0 kg, 0 lb Method ====== Transabdominal and transvaginal ultrasound examination. View: Sufficient ========= [place] . Number of embryos: 1 Dating ====== Date Details Gest. age SIMIN LMP 11/29/2024 7 w + 3 d 09/05/2025 U/S 01/20/2025 based upon CRL 7 w + 1 d 09/07/2025 Assigned dating based on the LMP, selected on 01/20/2025 7 w + 3 d 09/05/2025 Assessment Gestational sac: visualized. Location: intrauterine Yolk sac: visualized Embryo: visualized Cardiac activity: present CRL 10.6 mm 7w 1d 42% Hadlock FHR 132 bpm Maternal Structures Right Ovary Visualized Cyst(s) Size 17.0 mm x 14.0 mm x 15.0 mm. Mean 15.3 mm. Vol 1.869 cm . Simple cyst Left Ovary Visualized Cul de Sac Visualized. No free fluid visualized Impression ========= Single, live, intrauterine at 7w3d Small right ovarian cyst with low level echogenicity (probable corpus luteal cyst with resolving area of hemorrhage) No evidence of ectopic Comment ======== ultrasound alone cannot detect all structural, genetic, or functional , placental, or maternal abnormalities Follow-up ======== Follow up with primary Group Exercise Instructor for routine care as indicated. Coding ====== Procedures 27294: 1st Trimester 96742: [place] Preg Uterus Transvaginal [facility] PACS Anatomical Region Laterality Modality Other 01/20/2025 10:1 0 AM CDT Taylor Chang MD [facility] ORDERABLES Edited Result - Final * HEPATITIS C AB W/RFLX TO HCV RNA QN PCR (06/29/2020 11:53 AM CDT) Hepatitis C Antibody NON-REACTI VE NON-REACT [facility] Signal to Cut-Off 0.01 <1.00 [facility] Comment: HCV antibody was non-reactive. There is no laboratory evidence of HCV infection. In most cases, no further action is required. However, if recent HCV exposure is suspected, a test for HCV RNA (test code 47253) is suggested. For additional information please refer to http://education.BrightLocker/faq/QIY15h0 (This link is being provided for informational/ educational purposes only.) Test Performed at: [facility] [id number] [place] [address] BERNARD FREITAS DO,MPH Blood BLOOD SPECIMEN / Unknown 06/29/2020 11:53 AM CDT 06/29/2020 11:53 AM CDT Maru Maria ADJUNCT PSYCHOLOGY INSTRUCTOR-CNM LAB - CHEMISTRY OR DERABLES Final Result [facility] [address] [place] [address] * HIV-1 HIV-2 ANTIBODY + HIV P24 [...] purpose. For additional information please refer to http://education.BrightLocker/faq/NEU176 (This link is being provided for informational/ educational purposes only.) The performance of this assay has not been clinically validated in patients less than 2 years old. Test Performed at: [facility] [id number] [place] [address] BERNARD FREITAS DO,MPH Blood BLOOD SPECIMEN / Unknown 06/29/2020 11:53 AM CDT 06/29/2020 11:53 AM CDT Maru Freeman Crow MCLEAN-CNM LAB - CHEMISTRY OR DERABLES Final Result Performing Organization Address City/State/[facility] Co de Phone Number [email or web address] [place] [address] * PAP IMAGE-GUIDED LIQUID BASE RFLX HPV+CT/NG (12/12/2018 11:12 AM CDT) Case Report Gynecologic Cytology Report Case: [id number] Authorizing Provider: Ivett Ray, Collected: 12/12/2018 11:12 AM Ordering Location: [facility] Obstetrics Received: 12/13/2018 11:12 AM Gynecology [...] 1:15 PM CDT [facility] Interpretation COAT FELLER Negative for intraepithelial lesion or malignancy. 12/18/2018 1:15 PM CDT [facility] at 1315 CDT Pap Footnote This specimen was evaluated by the [facility] Imaging System along with the an additional manual rescreening by a quarter seamer and/or pathologist. 12/18/2018 1:15 PM CDT [facility] Embedded Images 9 1:15 PM CDT [facility] Pathology/Cytolo gy ENTIRE ENDOCERVIX / Unknown 12/12/2018 11:12 AM CDT 12/13/2018 11:12 AM CDT Ivett Ray MD LAB - PATHOLOGY/CYTO LOGY ORDERABLES Final Result Performing Organization Address City/State/[facility] Co de Phone Number [facility] [address] [id number] [phone] from Last 3 Months or Most Recently Relevant to Health Maintenance Insurance MEDICAID - OUT OF STATE Care Teams Hot Shot Relationship Specialty Start Date End Date Reuben Goff MD [address] [place] [address] PCP - General 02/14/18
--- OUTSIDE RECORDS SUMMARY | 2025-01-28 15:04 | XMS_ITS | Encounter Summary ---
Author Organization [email or web address] Care Team Providers Care Etcher Hand Name Role Phone Cindy Jackson PAC Unavailable Cindy Jackson PAC Primary Care Pro vider Encounter Details Date Type Department Care Team (Latest Contact Info) Description 01/27/2025 Travel Social History Tobacco Use Types Packs/Day Years Used Date Smoking Tobacco: Never Smokeless Tobacco: Never Alcohol Use Standard Drinks/Week Comments Yes 0 (1 standard drink = 0.6 oz pure alcohol) Not now - Occasionally has a drink with friends about 1x month PHQ-2 Answer Date Recorded Total Score - Questions 1-9 8 12/03 Education Answer Date Recorded What is the highest level of school you have completed or the highest degree you have received? GED or equivalent 10/2022 Sexually Active Control Partners Comments Yes Male Comments No Sex and Gender Information Value Date Recorded Sex Assigned at Not on file Legal Sex Female 1:06 PM CDT Gender Identity Not on file Sexual Orientation Not on file documented as of this encounter Plan of Treatment Upcoming Encounters Date Type Department Care Team (Late st Contact Info) Description 01/28/2025 3:30 PM CDT Telemedicine [facility] - Internal Medicine - [place] [address] [place] [phone] Cindy Jackson, PAC [address] [place] [address] MDD (major depressive disorder), recurrent episode, moderate (HCC) (Primary Dx) 02/20/2025 1:45 PM CDT Telemedicine [facility] [address] [place] [address] Leanne Li LCPC [address] [place] [address] Discharge Disposition: Discharged to home or Selfcare documented as of this encounter Goals Goal Patient Goal Type Associated Problems Recent Progress Patient-Stated? Author Behavioral [facility] Behavioral Health On track(2023 3:13 PM INSPECTOR HANDBAG FRAMES) Yes Kenzie Miller LCSW Note: I see nothing good in myself. I want to change that. I want to be happy again. Goal Reviewed with: patient today Readiness to change: Ready to change Department associated with goal: [facility] Steps to achieve goal: [...] Health Behavioral Health On track(2023 3:13 PM INSPECTOR HANDBAG FRAMES) No Kenzie Miller LCSW Note: Summer will report an improvement in mood Goal Reviewed with: patient today Readiness to change: Ready to change Department associated with goal: [facility] Steps to achieve goal: [...] any more work due to depressive symptoms Depression Depression On track(2024 6:25 PM CDT) Yes Leanne Li LCPC Note: Understand more and have a better reaction to things Goal/Objective: Decrease symptoms. Anticipated Time Frame for Goal Completion: 6 months Goal Reviewed with: patient Readiness to change: Ready to change Department associated with goal: [facility] Steps to achieve goal: will attend counseling/psychotherapy sessions at least once monthly, at least 6 sessions, utilizing individual and/or group sessions to express thoughts and feelings. to identify, verbalize and process at least three contributing factors/triggers to anxiety and depression. to identify and verbalize at least three actions/skills to prevent and/or cope with anxiety and depression. to put into action, at least one time weekly, for one month, an action/skill to prevent and or cope with anxiety and depression. documented as of this encounter Visit Diagnoses Not on filedocumented in this encounter Additional Health Concerns Assessment Noted Time PHQ-9 Depression Total Score: 8 12/30/19 25 2:09 PM CDT documented as of this encounter Care Teams Etcher Hand Relationship Specialty Start Date End Date Cindy Jackson PAC [address] [place] [address] PCP - General Physician Wraparound Facilitator 09/15/22 Cindy Jackson PAC [address] [place] [address] Physician Wraparound Facilitator Physician Wraparound Facilitator 09/08/22 documented as of this encounter
--- OUTSIDE RECORDS SUMMARY | 2025-01-28 15:04 | XMS_ITS | Encounter Summary ---
Author Organization [facility] Address [address] [place] [address] Phone Care Team Providers Care Loss Prevention Detective Name Role Phone Cindy Jackson PAC Unavailable Cindy Jackson PAC Primary Care Pro vider Reason for Visit * Reason Comments Depression Encounter Details Date Type Department Care Team (Late st Contact Info) Description 01/28/2025 3:30 PM CDT Telemedicine [facility] - Internal Medicine - [place] [address] [place] [phone] Cindy Jackson PAC [address] [place] [address] MDD (major depressive disorder), recurrent episode, moderate (HCC) (Primary Dx) Social History Tobacco Use Types Packs/Day Years [...] on file documented as of this encounter Progress Notes * Cindy Jackson PAC - 01/28/2025 3:30 PM CDT Patient was assessed via Telephone, patient without video capabilities. Total time spent on this date of service was 11 minutes. Telephone visit with greater than 10 minutes spent in medical discussion with the patient. Patient verbally consented for this service to be performed and billed. This visit was performed when I was physically located at clinic. The patient was at home. HPI: Staci Haines is a 29 y.o. female evaluated today for depression Medication working well No concerns Does have some nausea but is 9 weeks ; OB is managing No other concerns Feels her depression is stable and doing well; zoloft is effective Current Outpatient Medications: sertraline (ZOLOFT) 25 MG Tablet The past medical, surgical, family and social histories, and allergies were reviewed and updated asneeded. ROS: Depressed mood Plan: ICD-10-CM 1. MDD (major depressive disorder), recurrent episode, moderate (HCC) F33.1 Cont zoloft If any further concerns, follow up with me Follow Up: Staci was asked to follow up with TATIANA Silva in 6 month(s). documented in this encounter Plan of Treatment Upcoming Encounters Date Type Department Care Team (Late st Contact Info) Description 02/20/2025 1:45 PM CDT Telemedicine [facility] [address] [place] [phone] Leanne Li [facility] [address] [place] [address] Discharge Disposition: Discharged to home or Selfcare documented as of this encounter Goals Goal Patient Goal Type Associated Problems Recent Progress Patient-Stated? Author Behavioral Health Behavioral Health On track(2023 3:13 PM FORESTRY SCIENTIST) Yes Kenzie Miller LCSW Note: I see nothing good in myself. I want to change that. I want to be happy again. Goal Reviewed with: patient today Readiness to change: Ready to change Department associated with goal: [facility] Steps to achieve goal: [...] Health Behavioral Health On track(2023 3:13 PM FORESTRY SCIENTIST) Kenzie Ramsey, ASSOCIATE PROGRAMMER ANALYST Note: Summer will report an improvement in mood Goal Reviewed with: patient today Readiness to change: Ready to change Department associated with goal: [facility] Steps to achieve goal: [...] Depression Depression On track(2024 6:25 PM CDT) Leanne Solitario, BUDGET MANAGER Note: Understand more and have a better reaction to things Goal/Objective: Decrease symptoms. Anticipated Time Frame for Goal Completion: 6 months Goal Reviewed with: patient Readiness to change: Ready to change Department associated with goal: [facility] Steps to achieve goal: [...] documented as of this encounter Visit Diagnoses Diagnosis MDD (major depressive disorder), recurrent episode, moderate (HCC)- Primary Major depressive disorder, recurrent episode, moderate documented in this encounter Additional Health Concerns Assessment Noted Time PHQ-9 Depression Total Score: 8 12/30/19 25 2:09 PM CDT documented as of this encounter Care Teams Loss Prevention Detective Relationship Specialty Start Date End Date Cindy Jackson PAC [address] [place] [address] PCP - General Physician Qualification Engineer 09/15/22 Cindy Jackson PAC [address] [place] [address] Physician Qualification Engineer Physician Qualification Engineer 09/08/22 documented as of this encounter
--- OUTSIDE RECORDS SUMMARY | 2025-01-28 15:04 | XMS_ITS | Encounter Summary ---
Author Organization [facility] Address [address] [place] [address] Phone Care Team Providers Care Marionette Performer Name Role Phone Cindy Jackson PAC Unavailable Cindy Jackson PAC Primary Care Pro vider Reason for Visit * Reason Comments Depression * Auth/Cert (Routine) Specialty Diagnoses / Procedures Referred By Phi t Referred To Contact Referral ID Status Reason Start Date Expiration Date Visits Re quested Visits Authorized [id number] 09 27 Encounter Details Date Type Department Care Team (Late st Contact Info) Description 01/27/2025 5:15 PM CDT Telemedicine [facility] [address] [place] [address] Eleanor Li, [facility] [address] [place] [address] MDD (major depressive disorder), recurrent episode, moderate (HCC) (Primary Dx) Discharge Disposition: Discharged to home or Selfcare Social History Tobacco Use Types Packs/Day Years [...] on file documented as of this encounter Patient Instructions * Patient Instructions* Eleanor Li, [facility] - 01/27/2025 5:15 PM CDT Crisis Resources In-Home, Mental Health Crisis Assessment [facility] Crisis Intervention Team?[phone] ([place]) [facility] Crisis Intervention Team?.. [phone] ([place]) [facility] Available for individual, family, or friend for in-home assessment of mental health issues Crisis Stabilization- Residential 24-hour or short-term supervised care at a facility. Available for persons 18 and older, who are experiencing a mental health crisis and do not need hospitalization. [facility] provides 24-hour short-term supervised care for persons aged 18 years and older experiencing an acute psychiatric crisis that does not require hospitalization. The average length of stay is 14 days. Admission to our crisis unit is voluntary; we only accept those individuals who choose to come to the unit. The facility is not prepared to work with persons who may be acutely suicidal or homicidal or who are experiencing serious medical problems or complications. The unit is staffed with nurses and behavioral health technicians and is not a hospital. During their stay on the unit, clients spend time in groups that meet four or more times a day. Thegroups provide education on topics helpful to individuals in crisis and clients are expected to attend and to participate actively. [facility] will provide a safe and supportive environment conducive to achieving stability. No alcohol or drugs are allowed in the unit. All medications are dispensed by [facility] nurses at appropriate times. No visitors are allowed on the unit but there is a phone available for clients to use and make calls. Persons may refer themselves for crisis residential/stabilization services and may be referred by hospitals, police departments, mental health agencies, social service agencies, and families. [facility] ?.....? .[phone] [facility] ?.???..[phone] Brief Crisis Phone Counseling Behavioral Health Response (BHR)?[phone] / [phone] ([facility] (Medicaid patients) ?..[phone] If non-Medicaid patient, the caller will be referred to a local service provider Emergency Sites for Mental Health Assessment and Treatment Behavioral Health Urgent Care [facility] (5yrs old to adult) [address] [address] Sunday - Sunday 9:00 am - 7:00 pm *Last patient seen at 6:00 pm Hospitals with Inpatient Psychological Services for Children and/or Adolescents and Adults [facility] (also has substance use treatment for adults) (adolescent, adult) [address] [place] [address] [facility] (children, adolescents, adult) after business hours [phone] [address]. [facility] (children, adolescents, adult) [address] [place] [address] [facility] (also has substance use treatment for adults) (children, adolescents, adult) Phone: or [phone] [address] [place] [address] [facility] (adolescent, adult) Phone: or [phone] [address] [place] [address] Hospitals with Inpatient Psychological Services for Adults only [facility] (adult, geriatric) [address] [id number] [facility] Behavioral Health (adult) [address] [place] [address] [facility] (adult) Phone: or [phone] [address] [place] [address] [facility] (geriatric only) Phone: or [phone] [address] [place] [address] [facility] (adult, geriatric) [address] [place], [place] Hotline Numbers National Suicide Prevention Hotline: ?..?.9-410-060-NHXA (3507) or [address] [place] Sexual Assault Hotline?..?.?6-761-395-[place] (0864) [facility] Sexual Assault Victims Support?..1-696.739.5914 [facility] Child Abuse Hotline?.1-964.778.5204 Domestic Violence Hotline?.?.4-895-233-S [place] (0644) [facility] Lifeline?.? Trans Lifeline?.? LGBTQ Partner Abuse & Sexual Assault Line . .1- 270.941.2981 [facility] including support for opioids or other substances.? Crisis Text Line???..?.?.? Text the word help to 345597 [facility] Text Line for service referrals.?.?. Text the word help to 737204 Warm Lines [facility]?9-766-280-79 [address] [place] SHRUTI Warmline? 9a-9p/7 days a week [facility] Warmline?..7-097-625-0226 documented in this encounter Progress Notes * Eleanor Li LCPC - 01/27/2025 5:15 PM CDT Images from the original note were not included. [facility] BEHAVIORAL HEALTH CLINICAL PROGRESS NOTE NAME: Staci Haines AGE: 29 y.o. DATE OF : 1995 DATE OF SERVICE: 01/27/2025 START TIME: 5:20 PM END TIME: 6:03 PM Patient was assessed via Online video. Total time spent on this date of service was 45 minutes. Video visit. Patient verbally consented for this service to be performed and billed. This visit was performed when I was physically located at clinic. The patient was at home. DIAGNOSIS: 1. MDD (major depressive disorder), recurrent episode, moderate (HCC) TREATMENT PLAN: Goals Addressed This Visit's Progress Depression (pt-stated) On track Understand more and have a better reaction to things Goal/Objective: Decrease symptoms. Anticipated Time Frame for Goal Completion: 6 months Goal Reviewed with: patient Readiness to change: Ready to change Department associated with goal: [facility] Steps to achieve goal: will attend counseling/psychotherapy sessions at least once monthly, at least 6 sessions, utilizingindividual and/or group sessions to express thoughts and feelings. to identify, verbalize and process at least three contributing factors/triggers to anxiety and depression. to identify and verbalize at least three actions/skills to prevent and/or cope with anxiety and depression. to put into action, at least one time weekly, for one month, an action/skill to prevent and or copewith anxiety and depression. PROBLEM STATUS: Staci Wheeler was seen today due to the following concerns: Depression: emotionality (anger, crying, irritability) negative automatic thoughts/intrusive thoughts withdrawn/isolating Based upon the presenting problem the following treatment modalities were utilized: Cognitive Behavioral Therapy Supportive/Client Centered Therapy THERAPEUTIC INTERVENTIONS USED: This clinician provided therapeutic interventions for: Depression: increasing insight into current difficulties identifying and decreasing cognitive distortions/negative automatic thoughts contributing negatively to depressed mood and behavior . Patient reports that she had her ultrasound and is Due in early Sep. Pt has been very tired and also having morning sickness, Pt is struggling with her family and how they interact with her. Discussed feeling abandoned the years she didn't see her Mom and now her Dad. Helped to reframe that she was caught in the custody mullen and discussed that maybe her parents didn't know how to nuture her. Discussed self esteem. Challenged pt to write 25 positives about self for next session. Patient verbalized an understanding and responded well to interventions provided during treatment session. PROGRESS TOWARDS GOALS: Patient reported no change in symptoms. MENTAL STATUS EXAM: Staci Wheeler is alert cooperative. Affect is within normal range. Mood is anxious sad. There is no current suicidal ideation.. There is no history of homicidal ideation.. TREATMENT RECOMMENDATIONS/FOLLOW UP: Recommendations for follow up treatment plan: Continue individual therapy as needed for support and guidance. ELEANOR LI LCPC documented in this encounter Plan of Treatment Upcoming Encounters Date Type Department Care Team (Late st Contact Info) Description 01/28/2025 3:30 PM CDT Telemedicine [facility] - Internal Medicine [facility] [address] [place] [phone] Cindy Jackson, [facility] [address] [place] [address] MDD (major depressive disorder), recurrent episode, moderate (HCC) (Primary Dx) 02/20/2025 1:45 PM CDT Telemedicine [facility] [address] [place] [address] Eleanor Li, [facility] [address] [place] [address] Discharge Disposition: Discharged to home or Selfcare documented as of this encounter Goals Goal Patient Goal Type Associated Problems Recent Progress Patient-Stated? Author [facility] Behavioral Health On track(2023 3:13 PM RECLAMATION ENGINEER) Yes Kenzie Miller LCSW Note: I see nothing good in myself. I want to change that. I want to be happy again. Goal Reviewed with: patient today Readiness to change: Ready to change Department associated with goal: [facility] Steps to achieve goal: [...] this in 6 months, or reevaluate. Behavioral [facility] Behavioral Health On track(2023 3:13 PM RECLAMATION ENGINEER) No Kenzie Miller LCSW Note: Summer will report an improvement in mood Goal Reviewed with: patient today Readiness to change: Ready to change Department associated with goal: [facility] Steps to achieve goal: [...] Depression On track(2024 6:25 PM CDT) Yes Eleanor Li, [facility] Note: Understand more and have a better reaction to things Goal/Objective: Decrease symptoms. Anticipated Time Frame for Goal Completion: 6 months Goal Reviewed with: patient Readiness to change: Ready to change Department associated with goal: [facility] Steps to achieve goal: [...] Primary Major depressive disorder, recurrent episode, moderate MDD (major depressive disorder), recurrent episode, moderate (HCC)- Primary Major depressive disorder, recurrent episode, moderate documented in this encounter Additional Health Concerns Assessment Noted Time PHQ-9 Depression Total Score: 8 12/30/19 25 2:09 PM CDT documented as of this encounter Care Teams Marionette Performer Relationship Specialty Start Date End Date Cindy Jackson PAC [address] [place] [address] PCP - General Physician Academic Affairs Dean 09/15/22 Cindy Jackson PAC [address] [place] [address] Physician Academic Affairs Dean Physician Academic Affairs Dean 09/08/22 documented as of this encounter
--- OUTSIDE RECORDS SUMMARY | 2025-01-28 15:05 | XMS_ITS | Clinical Summary ---
Author Organization [facility] [place] Address [address] [place] [address] Care Team Providers Care Director Account Management Name Role Phone Unavailable Primary Care Provider [...] 09/05/201901/24 Assessment & Plan (10/06/2021 12:38 PM PROCESS TECH): Patient has non-specific depression on problem list or past encounter, a positive PHQ-9 or antidepressant on medication list. Every Word Counts - Depression ([facility]) Immunizations Immunization Administration Dates Next Due [...] Comments Blood Pressure 104/70 09/14/2020 1:02 PM PROCESS TECH Pulse 85 09/14/2020 1:02 PM PROCESS TECH Temperature 36.8 C (98.2 F) 09/14/2020 1:02 PM PROCESS TECH Respiratory Rate 18 09/14/2020 1:02 PM PROCESS TECH Oxygen Saturation 98% 09/14/2020 1:02 PM PROCESS TECH Inhaled Oxygen Concentration - - Weight 109.3 kg (241 lb) 09/14/2020 1:02 PM PROCESS TECH Height 162.6 cm (5' 4) 09/14/2020 1:02 PM PROCESS TECH Body Mass Index 41.37 09/14/2020 1:02 PM PROCESS TECH Plan of Treatment Health Maintenance Due Date [...] Advance Directives For more information, please contact: [phone] * Full Code (Latest Code Status on File) Date Activated Date Inactivated Comments 10/10/2019 11:11 AM 10/10/2019 2:57 PM
--- OUTSIDE RECORDS SUMMARY | 2025-01-28 15:05 | XMS_ITS | Clinical Summary ---
Author Organization [facility] Address [address] [place] [address] Phone Care Team Providers Care Heel Emery Buffer Name Role Phone Cindy Jackson PAC Unavailable Cindy Jackson PAC Primary Care Pro vider Allergies No known active allergies Medications sertraline (ZOLOFT) 25 MG Tablet Take 1 Tablet by mouth daily. 30 Tablet 1 12/29/2024 Active Active Problems Problem Noted Date Diagnosed Date MDD (major depressive disord er), recurrent episode, moderate 01/08/2025 Depression 07/05/2023 Major depressive disorder, recurrent episode, mi ld 12/15/2020 Gastroesophageal reflux disease without esophagi tis 11/04/2019 09/17/2023 Encounters Date Type Department Care Team Description 01/28/2025 3:30 PM CDT Telemedicine [facility] - Internal Medicine - [place] [address] [place] [id number] Cindy Jackson PAC MDD (major depressive disorder), recurrent episode, moderate (HCC) (Primary Dx) 01/27/2025 5:15 PM CDT Telemedicine [facility] [address] [place] [address] Leanne Li LCPC MDD (major depressive disorder), recurrent episode, moderate (HCC) (Primary Dx) Discharge Disposition: Discharged to home or Selfcare 01/27/2025 Travel 01/16/2025 9:30 AM CDT Outpatient [facility] [address] [place] [address] Leanne Li LCPC Discharge Disposition: Discharged to home or Selfcare 01/16/2025 Travel 01/08/2025 9:45 AM CDT Outpatient [facility] [address] [place] [address] Leanne Li LCPC MDD (major depressive disorder), recurrent episode, moderate (HCC) (Primary Dx) Discharge Disposition: Discharged to home or Selfcare 01/08/2025 Travel 12/29/2024 2:00 PM CDT Office Visit [facility] Internal Medicine [facility] [address] [place] [address] Cindy Jackson PAC Major depressive disorder, recurrent episode, mild (HCC) (Primary Dx); as incidental finding Discharge Disposition: Discharged to home or Selfcare 12/29/2024 Travel 12/19/2024 Refill [facility] Internal Medicine [facility] [address] [place] [address] Cindy Jackson, TATIANA Medication Refill from Last 3 Months Immunizations Immunization Administration Dates Next Due DTAP [...] History Relation Name Comments Bipolar Disorder Father (52) Hypertension Father (52) Bipolar Disorder Half-Sister ADD / ADHD Mother (52) Depression Mother (52) Bipolar Disorder Sister (22) [place] Relation Name Status Comments Father (52) Alive Half-Sister Alive Mother (52) Alive Sister (22) [place] Alive Social History Tobacco Use Types Packs/Day [...] Sign Reading Time Taken Comments Blood Pressure 102/80 12/29/2024 2:12 PM CDT Pulse 81 12/29/2024 2:12 PM CDT Temperature 36.8 C (98.3 F) 12/29/2024 2:12 PM CDT Respiratory Rate 16 12/29/2024 2:12 PM CDT Oxygen Saturation 97% 12/29/2024 2:12 PM CDT Inhaled Oxygen Concentration - - Weight 111.4 kg (245 lb 9.6 oz) 12/29/2024 2:12 PM CDT Height 162.6 cm (5' 4) 10/24/2023 3:40 PM SECURITY TESTER Body Mass Index 42.16 10/24/2023 3:40 PM SECURITY TESTER Plan of Treatment Upcoming Encounters Date Type Department Care Team (Late st Contact Info) Description 01/28/2025 3:30 PM CDT Telemedicine [facility] - Internal Medicine - [place] [address] [place] [address] Cindy Jackson, PAC [address] [place] [address] MDD (major depressive disorder), recurrent episode, moderate (HCC) (Primary Dx) 02/20/2025 1:45 PM CDT Telemedicine [facility] [address] [place] [address] Leanne Li, [facility] [address] [place] [address] Discharge Disposition: Discharged to home or Selfcare Health Maintenance Due Date Last Done Comments Human Papillomavirus (HPV) Immunization (2 - 3-dose series) 12/28/2014 11/30/2014 Pap Smear 12/12/2021 12/12/2018 Cervical Cancer Screening [...] on patient's age to complete this topic Hepatitis C Virus (HCV) Screening Completed 10/25/2023, 06/19/2020 Pneumococcal Immunization Combined Aged Out No longer eligible based on patient's age to complete this topic Rotavirus Immunization Aged Out No lo nger eligible based on patient's age to complete this topic Goals Goal Patient Goal Type Associated Problems Recent Progress Patient-Stated? Author [facility] On track(2023 3:13 PM SECURITY TESTER) Yes Kenzie Miller LCSW Note: I see nothing good in myself. I want to change that. I want to be happy again. Goal Reviewed with: patient today Readiness to change: Ready to change Department associated with goal: [facility] Steps to achieve goal: [...] Health Behavioral Health On track(2023 3:13 PM SECURITY TESTER) No Kenzie Miller LCSW Note: Summer will report an improvement in mood Goal Reviewed with: patient today Readiness to change: Ready to change Department associated with goal: [facility] Steps to achieve goal: [...] On track(2024 6:25 PM CDT) Yes Leanne Li, HAMLET Note: Understand more and have a better reaction to things Goal/Objective: Decrease symptoms. Anticipated Time Frame for Goal Completion: 6 months Goal Reviewed with: patient Readiness to change: Ready to change Department associated with goal[facility] Steps to achieve [...] and or cope with anxiety and depression. Procedures Procedure Name Priority Date/Time Associated Diagnosis Comments XR - LOWER EXTREMITY 12/08/2024 12:00 AM CDT XR - LOWER EXTREMITY 11/24/2024 12:00 AM CDT HEPATITIS C ANTIBODY Routine 10/25/2023 3:42 PM SECURITY TESTER STD exposure from Last 3 Months or Most Recently Relevant to Health Maintenance Results * XR - LOWER EXTREMITY (12/08/2024 12:00 AM CDT) Only the most recent of2 resultswithin the time period is included. 12/08/2024 us Provider Scan IMG DIAGNOSTIC ORDERABLES Final Result SCAN * HEPATITIS C ANTIBODY (10/25/2023 3:42 PM SECURITY TESTER) hepatitis C antibody 0.06 <1 S/CO [facility] ARCH [id number] B 10/26/2023 2:42 PM SECURITY TESTER [facility] Comment: Signal/Cutoff ratio < 0.79 is Nondetected Signal/Cutoff ratio 0.80-0.99 is Grayzone Signal/Cutoff ratio > 0.99 is Detected Supplemental assays are recommended if signal/cutoff ratio is >/=1.00. Signal/cutoff ratio result >/= 5.00 is 97% predictive of positivity for recombinant immunoblot assay (RIBA) and will be reported to the [place] [facility] as required. Blood Venipuncture / Unknown 10/25/2023 3:42 PM SECURITY TESTER 10/25/2023 3:42 PM SECURITY TESTER Cindy Jackson PAC CHEMISTRY ORDERAB LES Final Result [facility] [address] [place] [address], [place] from Last 3 Months or Most Recently Relevant to Health Maintenance Insurance [facility] Care Teams Heel Emery Buffer Relationship Specialty Start Date End Date Cindy Jackson, TATIANA [address] [place] [address] PCP - General Physician Quick Technician 09/15/22 Cindy Jackson, TATIANA [address] [place] [address] Physician Quick Technician Physician Quick Technician 09/08/22
--- OUTSIDE RECORDS SUMMARY | 2025-01-28 15:05 | XMS_ITS | Data Portability ---
Author Organization [facility] Address [address] [place] [address] Assessment No assessment recorded. Plan of Treatment Reminders Order Date Submit Date Provider Last Modified By Organization Details Last Modified Time Details Appointments None record ed. Lab pregna ncy test, urine 2023 024 [email or web address] In-Office Order, Internal Use Only DO Not Attach Compendium DO Not Attach Compendium, Do Not Delete/merge, [id number] 14:10:53 pregna ncy test, urine 2023 024 In-Office Order, Internal Use Only DO Not Attach Compendium DO Not Attach Compendium, Do Not Delete/merge, [id number] 4 12:32:11 vagina l pathog ens panel, CHRIS+pr obe, vagina l fluid 2023 024 RON [facility], [address], [place], [address], 4 07:13:24 pap, IG + HPV, cervic al 2023 024 RON [facility], [address], [place], [address], 4 10:09:40 Referral None record ed. Procedures insert ion, intrau terine device (PROC) 2023 024 [email or web address] Not available 4 13:16:02 remova l, intrau terine device (PROC) 2023 024 [email or web address] Not available 12:36:11 Surgeries None record ed. Imaging None record ed. Medication Orders Mirena 21 mcg/24 hr (up to 8 years) 52 mg intrau terine device 2023 [email or web address] [id number], [address] [place], [address], 5 10:54:09 Prenat al 28 mg iron-8 00 mcg tablet 2023 024 RON [id number], [address] [place], [address], 4 10:02:22 Patient TargetsNo targets recorded. Patient Instructions Encounter Date Encounter Id Patient Instructions Last Modified By Organization Details Last Modified Time 08/16/2023 [id number] A healthy lifestyle: care instructions [email or web address] Not [...] clinic for IUD exchange. Taylor Hurtado MD Not available 08/20/2023 16:28:33 12/17/2023 [id number] Attending Physician Attestation I personally saw and examined the patient with the resident. I was physically present during the entire procedure and provided direct supervision throughout procedure duration. have reviewed the documentation and agree with the history, physical findings, work-up, and medical decision making as recorded. Nadege Purdy MD mmetias Not available 12/17/2023 11:34:26 Reason for Referral Pharmacist Referral for Urin e test positive Referring Physician: Paty Quick, Core Mounter, Encounter Date: 01/14/2025 Results Created Date Observation Date Name Description Value Unit Range Abnormal Flag Note LastModifiedBy Organization Detail LastModifiedTime 09/05/19 24 09/06/2023 NUSWA B VAGIN ITIS PLUS (VG+) atopobium vaginae High - 2 score abnormal Not Available [facility] ([facility]) [address] [facility], [place], [address], 09/07/2023 07:13:24 09/05/19 24 09/06/2023 NUSWA B VAGIN ITIS PLUS (VG+) bvab 2 High - 2 score abnormal Not Available [facility] ([facility]) [address] [facility], [place], [address], 09/07/2023 07:13:24 09/05/19 24 09/06/2023 NUA B VAGIN ITIS PLUS (VG+) megasphaera 1 High - 2 score abnormal Calcu late total score by cinthya corral the 3 indiv idual bacte rial vagin [...] Drug Admin istra tion. Not Available [facility] ([facility]) [address] [facility], [place], [address], 09/07/2023 07:13:24 09/05/19 24 09/06/2023 NUSWA B VAGIN ITIS PLUS (VG+) massimo albicans, CHRIS Negati ve negati ve Not Available [facility] ([facility]) [address] [facility], [place], [address], 09/07/2023 07:13:24 09/05/19 24 09/06/2023 NUSWA B VAGIN ITIS PLUS (VG+) massimo glabrata, CHRIS Negati ve negati ve Not Available [facility] ([facility]) [address] [facility], [place], [address], 09/07/2023 07:13:24 09/05/19 24 09/07/2023 NUSWA B VAGIN ITIS PLUS (VG+) trich vag by CHRIS Negati ve negati ve Not Available [facility] ([facility]) [address] [facility], [place], [address], 09/07/2023 07:13:24 09/05/19 24 09/07/2023 NUSWA B VAGIN ITIS PLUS (VG+) chlamydia trachomatis, CHRIS Negati ve negati ve Not Available [facility] ([facility]) [address] [facility], [place], [address], 09/07/2023 07:13:24 09/05/19 24 09/07/2023 NUA B VAGIN ITIS PLUS (VG+) neisseria gonorrhoeae, CHRIS Negati ve negati ve Not Available [facility] ([facility]) [address] [facility], [place], [address], 09/07/2023 07:13:24 09/05/19 24 09/07/2023 IGP, APTIM A HPV HPV aptima Negati ve negati ve This nucle ic acid ampli ficat ion test detec ts fourt een high- risk HPV types (16,1 8,31, 33,35 ,39,4 5,51, 52,56 ,58,5 9,66, 68) witho ut diffe renti ation . Not Available [facility] ([facility]) [address] [facility], [place], [address], 09/10/2023 10:09:40 09/05/1909/10/2023 IGP, APTIM A HPV diagnosis: Commen t UNSAT ISFAC TORY FOR EVALU ATION . Not Available [facility] ([facility]) [address] [place], [address], 09/10/2023 10:09:40 09/05/19 24 09/10/2023 IGP, APTIM A HPV recommendati on: Renu Beard st follo w up as clini jay appro priat e. Not Available [facility] ([facility]) [address] [place], [address], 09/10/2023 10:09:40 09/05/19 24 09/10/2023 IGP, APTIM A HPV specimen adequacy: Renu wilson Speci men proce ssed and exami mahnaz, but unsat isfac tory for evalu ation of epith elial abnor malit y shaanau se of exces erice tay cant. Not Available [facility] ([facility]) [address] [place], [address], 09/10/2023 10:09:40 09/05/19 24 09/10/2023 IGP, APTIM A HPV performed by: Renu severino, Cytot echno logis t (ASCP ) Not Available [facility] ([facility]) [address] [place], [address], 09/10/2023 10:09:40 09/05/19 24 09/10/2023 IGP, APTIM A HPV QC reviewed by: Sangita Jefferson y [employer]ot echno logis t (ASCP ) Not Available [facility] ([facility]) [address] [place], [address], 09/10/2023 10:09:40 09/05/19 24 09/10/2023 IGP, APTIM A HPV . . Not Available [facility] ([facility]) [address] [place], [address], 09/10/2023 10:09:40 09/05/19 24 09/10/2023 IGP, APTIM A HPV note: Commen t The Pap smear is a scree mireille [...] ts do occur . Not Available [facility] ([facility]) [address] [facility], [place], [address], 09/10/2023 10:09:40 09/05/19 24 09/10/2023 IGP, APTIM A HPV test methodology: Commjohn t This liqui d based ThinP rep(R ) pap test was scree mahnaz with the use of an image guide judah hagan Not Available [facility] ([facility]) [address] [facility], [place], [address], 09/10/2023 10:09:40 09/05/19 24 09/05/2023 pregn emelina test, urine HCG negati ve Not Available In-Office Order Internal Use Only DO Not Attach Compendium DO Not Attach Compendium, Do Not Delete/merge, [id number] 09/05/2023 11:44:46 10/25/19 24 10/26/2023 Hepat itis C virus Ab Signa l/Cut off in Serum or Plasm a by Immun oassa y hepatitis C virus Ab signal/cutof f in serum or plasma by immunoassay 0.06 text: <1 S/co hepat itis C antib josh 0.06 <1 S/CO [facility] ARCH I2000 SR B 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 [facility] Not Available Not Available 01/13/2025 09:45:01 10/25/19 24 10/26/2023 Hepat itis C virus Ab Signa l/Cut off in Serum or Plasm a by Immun oassa y interpretati on and review of laboratory results Normal Not Available Not Available 01/01 09:45:01 12/17/19 24 12/17/2023 pregn emelina test, urine HCG negati ve Not Available In-Office Order Internal Use Only DO Not Attach Compendium DO Not Attach Compendium, Do Not Delete/merge, [id number] 12/17/2023 11:54:24 01/15/2001/15/2025 NUA B VAGIN ITIS PLUS (VG+) atopobium vaginae HIGH - 2 score abnormal Not Available [facility] ([facility]) [address] [facility], [place], [address], 01/16/2025 06:49:36 01/15/2001/15/2025 NUA B VAGIN ITIS PLUS (VG+) bvab 2 HIGH - 2 score abnormal Not Available [facility] ([facility]) [address] [facility], [place], [address], 01/16/2025 06:49:36 01/15/2001/15/2025 NUA B VAGIN ITIS PLUS (VG+) megasphaera 1 HIGH - 2 score abnormal Calcu late total score by cinthya g the 3 indiv idual bacte rial [...] Indic ates the prese nce of BV. Not Available [facility] ([facility]) [address] [facility], [place], [address], 01/16/2025 06:49:36 01/15/2001/15/2025 NUA B VAGIN ITIS PLUS (VG+) massimo albicans, CHRIS NEGATI VE negati ve Not Available [facility] ([facility]) [address] [place], [address], 01/16/2025 06:49:36 01/15/2001/15/2025 NUA B VAGIN ITIS PLUS (VG+) massimo glabrata, CHRIS NEGATI VE negati ve Not Available [facility] ([facility]) [address] [facility], [place], [address], 01/16/2025 06:49:36 01/15/2001/16/2025 NUA B VAGIN ITIS PLUS (VG+) trich vag by CHRIS NEGATI VE negati ve Not Available [facility] ([facility]) [address] [facility], [place], [address], 01/16/2025 06:49:36 01/15/2001/16/2025 NUA B VAGIN ITIS PLUS (VG+) chlamydia trachomatis, CHRIS NEGATI VE negati ve Not Available [facility] ([facility]) [address] [facility], [place], [address], 01/16/2025 06:49:36 01/15/2001/16/2025 NUA B VAGIN ITIS PLUS (VG+) neisseria gonorrhoeae, CHRIS NEGATI VE negati ve Not Available [facility] ([facility]) [address] [facility], [place], [address], 01/16/2025 06:49:36 01/15/2001/14/2025 urina lysis , dipst ick Leukocytes Negati ve Not Available In-Office Order Internal Use Only DO Not Attach Compendium DO Not Attach Compendium, Do Not Delete/merge, 01/14/2025 09:30:01 01/15/2001/14/2025 urina lysis , dipst ick Nitrite negati ve Not Available In-Office Order Internal Use Only DO Not Attach Compendium DO Not Attach Compendium, Do Not Delete/merge, 01/14/2025 09:30:01 01/15/2001/14/2025 urina lysis , dipst ick Urobilinogen .2 Not Available In-Of fice Order Internal Use Only DO Not Attach Compendium DO Not Attach Compendium, Do Not Delete/merge, 01/14/2025 09:30:01 01/15/20 25 01/14/2025 urina lysis , dipst ick Protein Trace Not Available In-Office Order Internal Use Only DO Not Attach Compendium DO Not Attach Compendium, Do Not Delete/merge, 01/14/2025 09:30:01 01/15/20 25 01/14/2025 urina lysis , dipst ick pH 7.0 Not Available In-Office Order Internal Use Only DO Not Attach Compendium DO Not Attach Compendium, Do Not Delete/merge, 01/14/2025 09:30:01 01/15/20 25 01/14/2025 urina lysis , dipst ick Blood Negati ve Not Available In-Office Order Internal Use Only DO Not Attach Compendium DO Not Attach Compendium, Do Not Delete/merge, 01/14/2025 09:30:01 01/15/20 25 01/14/2025 urina lysis , dipst ick Specific [place] 1.020 Not Available In-Off ice Order Internal Use Only DO Not Attach Compendium DO Not Attach Compendium, Do Not Delete/merge, 01/14/2025 09:30:01 01/15/20 25 01/14/2025 urina lysis , dipst ick Ketone Negati ve Not Available In-Office Order Internal Use Only DO Not Attach Compendium DO Not Attach Compendium, Do Not Delete/merge, 01/14/2025 09:30:01 01/15/20 25 01/14/2025 urina lysis , dipst ick Bilirubin Negati ve Not Available In-Office Order Internal Use Only DO Not Attach Compendium DO Not Attach Compendium, Do Not Delete/merge, 01/14/2025 09:30:01 01/15/20 25 01/14/2025 urina lysis , dipst ick Glucose Negati ve Not Available In-Office Order Internal Use Only DO Not Attach Compendium DO Not Attach Compendium, Do Not Delete/merge, 01/14/2025 09:30:01 01/15/20 25 01/14/2025 urina lysis , dipst ick Appearance Clear Not Available In-Offi ce Order Internal Use Only DO Not Attach Compendium DO Not Attach Compendium, Do Not Delete/merge, [id number] 01/14/2025 09:30:01 01/15/2001/14/2025 urina lysis , dipst ick Color Yellow Not Available In-Office Order Internal Use Only DO Not Attach Compendium DO Not Attach Compendium, Do Not Delete/merge, [id number] 01/14/2025 09:30:01 01/15/2001/14/2025 pregn emelina test, urine HCG positi ve Not Available In-Office Order Internal Use Only DO Not Attach Compendium DO Not Attach Compendium, Do Not Delete/merge, [id number] 01/14/2025 09:29:47 01/22/2001/20/2025 US, trans vagin al No observ ation record ed. [email or web address] [facility] [address], [place], [address], 01/23/2025 08:29:59 Result Notes None recorded. Problems Name Problem SNOMED Code Status Onset Date Resolution Date Notes Provider Name and Address Organization Details Recorded Time Mixed anxiety and depressive disorder 868721865 Active 2022 ROLANDO UMANA DO Attn: Skyler corral,[address], [place], [address], [place] [facility] 3 18:42:49 72712456 Active 2024 PATY QUICK MD Attn: Skyler corral,[address], [place], [address], [place] 5 13:10:34 Nausea and vomiting in Active 2024 Presenting with nausea and vomiting in first trimester, will start pyridoxine and unison. Encouraged hydration and small frequent meals. PATY QUICK MD Attn: Skyler corral,[address], [place], [address], [place] [facility] 5 11:41:41 Exercise induced bronchospa sm 865282431 Active 2024 Controlled with inhaler. Recent exacerbati on due to anxiety. Avoid carboprost during delivery. PATY QUICK MD Attn: Skyler corral,[address], [place], [address], [place] [facility] 5 11:49:19 Exercise induced bronchospa sm 401953709 Active 2024 Controlled with inhaler. Recent exacerbati on due to anxiety. Avoid carboprost during delivery. PATY QUICK MD Attn: Skyler corral,[address], [place], [address], [place] [facility] 5 11:49:19 Obese class III 481837422 Active 2024 BMI prior to 41 Monitor weight during target total weight gain 11- 20 pounds. Recommenda tions-Redu ce drinks with high sugar like soda or juice, increase water intake.-In crease fresh fruits and vegetables to diet.-Redu ce portions and limit snacks. PATY QUICK MD Attn: Skyler corral,[address], [place], [address], [place] [facility] 5 11:49:25 Problem Notes None recorded. Procedures Surgical History Date Name Laterality Status Provider Name and Address Organization Details Recorded Time 4 IUD Insertion completed Gama Torres MD Attn: Accounting,[address] [place], [address], [place] [facility] 12/17/2023 11:06:06 4 IUD Removal completed JODIE MENDOZA MD Attn: Accounting,[address], [place], [address], [place] [facility] 09/05/2023 12:57:59 3 Breast reduction completed Iman Villa MA [place] [facility] 08/16/2023 14:40:11 excision of lymph node completed Iman Villa [place] [facility] 08/16/2023 14:40:25 Imaging Results None recorded. Procedure Notes None recorded. Medical Equipment None Reported. Allergies No known drug allergies Medications Name Sig Start Date Stop Date Status Note LastModified by Organization Details LastModified Time Mirena 21 mcg/24 hr (up to 8 years) 52 mg intrauter ine device Take 1 device by intraute rine route. 2023 active removed by herself prior to pregnanc y, unknown date. Not Available Not Available Not Available paroxetin e 10 mg tablet Take 1 tablet every day by oral route. 08/16 completed Not Available Not Available Not Available fluconazo le 150 mg tablet TAKE 1 TABLET BY MOUTH DAILY 01/02 completed Not Available Not Available Not Available pyridoxin e (vitamin B6) 25 mg tablet Take 1 tablet every 6 hours by oral route as needed for 30 days. 2024 active Not Available Not Available Not Avai lable metronida zole 250 mg tablet Take 1 tablet every 8 hours by oral route for 7 days, for Symptoma tic BV in pregnanc y. active Not Available Not Available No t Available paroxetin e 20 mg tablet Take 1 tablet every day by oral route. active Not Available Not Available No t Available sertralin e 25 mg tablet TAKE 1 TABLET BY MOUTH DAILY active Not Available Not Available No t Available methylpre dnisolone 4 mg tablets in a dose pack FOLLOW PACKAGE DIRECTIO NS 08/16 completed Not Available Not Available Not Available intrauter ine device (IUD) Take by intraute rine route. 01/02 completed Not Available Not Available Not Available Unisom (doxylami ne) 25 mg tablet Take 1 tablet as needed by oral route at bedtime for 30 days. 2024 active Not Available Not Available Not Avai lable nitrofura ntoin monohydra te/macroc rystals 100 mg capsule TAKE 1 CAPSULE BY MOUTH EVERY 12 HOURS FOR 5 DAYS. TAKE WITH FOOD 01/02 completed Not Available Not Available Not Available 28 mg iron-800 mcg tablet TAKE 1 TABLET BY MOUTH EVERY DAY active Not Available Not Available No t Available Vitals Date Recorded Body height Body temperature Body mass index (BMI) Body weight Heart rate Respiratory rate Systolic And Diastolic Provider Name and Address Organization Details Last Updated DateTime 4 162.56 cm 97.5 [degF] 40.4 kg/m2 961087. 01 g 79 /min 16 /min 101/69 mm[Hg] Jazmin McManis, MA [facility] 4 11:44:31 Date Recorded Body height Body mass index (BMI) Body weight Body temperature Heart rate Respiratory rate Oxygen saturation Oxygen saturation in Arterial blood by Pulse oximetry Systolic And Diastolic Provider Name and Address Organization Details Last Updated DateTime 4 162.56 cm 37.1 kg/m2 05323.3 5 g 97.7 [degF] 70 /min 16 /min 98 % 98 % 116/74 mm[Hg] Britany Olivier MA [facility] 4 10:01:10 Date Recorded Body height Body mass index (BMI) Body weight Respiratory rate Body temperature Oxygen saturation Oxygen saturation in Arterial blood by Pulse oximetry Heart rate Systolic And Diastolic Provider Name and Address Organization Details Last Updated DateTime 4 162.56 cm 36.8 kg/m2 53897.2 2 g 18 /min 97.9 [degF] 97 % 97 % 71 /min 106/73 mm[Hg] Josseline Clayton [facility] 4 11:33:38 Date Recorded Body weight Systolic And Diastolic Provider Name and Address Organization Details Last Updated DateTime 01/14/2025 078020.3534 g 107/77 mm[Hg] PATY QUICK MD Attn: Accounting[address] [place], [address], [facility] 01/17/2025 11:13:53 Date Recorded Body weight Body mass index (BMI) Body height Heart rate Oxygen saturation Oxygen saturation in Arterial blood by Pulse oximetry Body temperature Respiratory rate Systolic And Diastolic Provider Name and Address Organization Details Last Updated DateTime 5 298763. 97 g 43 kg/m2 162.56 cm 72 /min 98 % 98 % 98.2 [degF] 16 /min 107/77 mm[Hg] Ivett Ngo MA [facility] 5 09:21:12 Date Recorded Body height Body mass index (BMI) Body weight Body temperature Heart rate Oxygen saturation Oxygen saturation in Arterial blood by Pulse oximetry Respiratory rate Systolic And Diastolic Provider Name and Address Organization Details Last Updated DateTime 3 162.56 cm 40.3 kg/m2 638695. 21 g 97.9 [degF] 78 /min 98 % 98 % 16 /min 111/76 mm[Hg] Iman Villa [place] [facility] 14:37:45 Social History Question Answer Notes LastModified by Organizat ion Details LastModified Time Tobacco Smoking Status Never Smoker Iman Villa MA null, [place] [facility] 08/16/2023 14:39:20 Do You Have An Advance Directive? No Information n ot available 01/14/2025 How Many Years Have You Consumed Alcohol? 10 Information not available 01/14/2025 In The 14 Days Before Symptom Onset, Have You Had Close Contact With A Laboratory-confirm ed COVID-19 While That Case Was Ill? No Information n ot available 01/03/2024 In The 14 Days Before Symptom Onset, Have You Had Close Contact With A Person Who Is Under Investigation For COVID-19 While That Person Was Ill? No [email or web address] Information not available 01/03/2024 Have You Been To An Area Known To Be High Risk For COVID-19? No [email or web address] Information not available 01/03/2024 What Was The Date Of Your Most Recent Tobacco Screening? 01/14/2025 Information not available 01/14/2025 What Is Your Relationship Status? Single Information not available 01/14/2025 Are You Sexually Active? Yes [email or web address] Information not available 01/03/2024 Do You Have Smoke And Carbon Monoxide Detectors In Your Home? Yes [email or web address] Information not available 01/03/2024 Are You Passively Exposed To Smoke? Yes [email or web address] Information no t available 01/03/2024 Has Tobacco Cessation Counseling Been Provided? Yes [email or web address] Information not available 09/05/2023 On What Date Was Tobacco Cessation Counseling Provided? 01/14/2025 Information not available 01/14/2025 Sex: Female Functional Status Question Answer Note LastModified by Organizat ion Details LastModified Time Do you use any illicit or recreational drugs? No Information not available 08/16/2023 Do you or have you ever used any other forms of tobacco or nicotine? Yes vape Information not available 08/16/2023 What is your level of alcohol consumption? Occasional Information not available 08/16/2023 Do you or have you ever used smokeless tobacco? Never used smokeless tobacco Information not available 01/14/2025 Are you currently employed? 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 Current user of electronic cigarettes Information not available 08/16/2023 Mental Status None recorded. Family History Relationship Description Onset Age of this Age Resolved Age Notes LastModified by Organization Details LastModified Time Father No current problems or disability [email or web address] Not available 11/2023 11:41:23 Father Asthma [email or web address] Not available 0 01/14/2025 09:25:22 Father Depressive disorder [email or web address] Not available 2024 09:25:55 Father Hypercholest erolemia mslackma Not available 2024 09:26:20 Father Hypertensive disorder [email or web address] Not available 2024 09:26:30 Mother No current problems or disability [email or web address] Not available 11/2023 11:41:23 Mother Attention deficit hyperactivit y disorder [email or web address] Not available 01/14 09:25:32 Sister Bipolar disorder [email or web address] Not available 2024 09:27:07 Notes:12/17/23, 01/03/24 Medical History Condition Response Coronary Artery Disease N Other N High Blood Pressure N Atrial Fibrillation N Kidney or Bladder Problems N Thyroid Problems N GI Problems N Depression Y COPD N Blood Clots N Skin Problems N Anemia N Heart Attack ([place]) N Anxiety Disorder N Diabetes N Muscle, Joint, or Bone Problems N Seizures/Epilepsy N Acid Reflux (GERD) N Cancer N Stroke N Asthma Y Allergies N High Cholesterol N Hepatitis N Liver Disease N Headaches N Heart Failure N Osteoporosis N Gynecological History Statement/Question Response Flow Heavy Date of LMP 11/30/2023 Menses Monthly Y Duration of Flow (days) 5 Age at Menarche 12 Current Control Method IUD LMP Approximate Obstetrics History GPAL:G 1 P 0 0 0 0 Immunizations Vaccine Type Date Status Note Provider Nam e and Address Organization Details Recorded Time Hep B, unspecified formulation 4 completed Not Available [facility] 01/14/2025 08:55:17 Hep B, unspecified formulation 4 completed Not Available [facility] 01/14/2025 08:55:17 DTaP, unspecified formulation 4 completed Not Available [facility] 01/14/2025 08:55:17 polio, unspecified formulation 4 completed Not Available [facility] 01/14/2025 08:55:17 Hib, unspecified formulation 4 completed Not Available [facility] 01/14/2025 08:55:17 polio, unspecified formulation 5 completed Not Available [facility] 01/14/2025 08:55:17 Hib, unspecified formulation 5 completed Not Available [facility] 01/14/2025 08:55:17 DTaP, unspecified formulation 5 completed Not Available [facility] 01/14/2025 08:55:17 polio, unspecified formulation 5 completed Not Available [facility] 01/14/2025 08:55:17 DTaP, unspecified formulation 5 completed Not Available [facility] 01/14/2025 08:55:17 DTaP, unspecified formulation 5 completed Not Available [facility] 01/14/2025 08:55:17 Hep B, unspecified formulation 5 completed Not Available [facility] 01/14/2025 08:55:17 Hib, unspecified formulation 5 completed Not Available [facility] 01/14/2025 08:55:17 MMR 5 completed Not Available [facility] 01/14/2025 08:55:17 varicella 9 completed Not Available [facility] 01/14/2025 08:55:17 MMR 9 completed Not Available [facility] 01/14/2025 08:55:17 DTaP, unspecified formulation 9 completed Not Available [facility] 01/14/2025 08:55:17 polio, unspecified formulation 9 completed Not Available [facility] 01/14/2025 08:55:17 Tdap 7 completed Not Available [facility] 01/14/2025 08:55:17 Hep A, unspecified formulation 7 completed Not Available [facility] 01/14/2025 08:55:17 varicella 7 completed Not Available [facility] 01/14/2025 08:55:17 HPV, quadrivalent 5 completed Not Available [facility] 01/14/2025 08:55:17 COVID-19, mRNA, LNP-S, PF, 100 mcg/0.5mL dose or 50 mcg/0.25mL dose 1 completed Not Available [facility] 01/14/2025 08:55:17 COVID-19, mRNA, LNP-S, PF, 100 mcg/0.5mL dose or 50 mcg/0.25mL dose 1 completed Not Available [facility] 01/14/2025 08:55:17 Influenza, split virus, quadrivalent, PF 2 completed Not Available [facility] 01/14/2025 08:55:17 Hep A, adult 2 completed Not Available [facility] 01/14/2025 08:55:17 Tdap 2 completed Not Available [facility] 01/14/2025 08:55:17 Past Encounters Encounter ID Performer Location Encounter Start Date Encounter Closed Date Diagnosis/Indication Diagnosis SNOMED-CT Code Diagnosis ICD10 Code Diagnosis Note [id number] Taylor Hurtado MD Tridell 14 [address] [facility] [address] [place] [address] 08/16/2023 14:16:03 08/21/2023 15:40:49 Contraception care management 606319293 Z30.9 Has state insuranceC an use mirena IUD from office supplyNeed s pap at same time Adult [facility] th examination 836152066 Z00.00 [facility] e includes STI testing. She has already been tested for HIV and syphilis in the past and negative. Will obtain swab when she comes back for her Pap smear. 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 Encouraged protein intake mostly with chicken and white fish and limited red meat. Electronic cigarette user 810855494 Z72.89 Discussed cessation [id number] MD Linda Desir 14 IM [address] [facility] [place] [address] 09/05/2023 11:10:23 09/06/2023 08:51:20 Screening for malignant neoplasm of cervix 782847764 Z12.4 Patient tolerated pap smear and removal of IUD but changed her mind about new IUD insertion. No new iud was inserted. Patient to follow up and decide if she wants a nexplanon instead.Shaun thomas states she is not sexually active currently so she wants more time to think about it. [id number] MD Linda TORRES 14 IM [address] [facility] [place] [address] 12/17/2023 09:52:05 12/21/2023 13:42:58 Contraception care management 164831200 Z30.9 Successful placement of IUD. No complicati ons. preg test negative prior to placing. Pt declined STI testing. Has been done this past year. Plan- Good for 8 years- Use condoms for 1 week to prevent - String check 2 weeks- Fertility will be restored when removed [id number] MD Linda Desir 14 IM [address] [facility] [place] [address] 01/03/2024 11:18:01 01/10/2024 10:01:32 IUD check 520890544 Z30.[address] reass[address] e about bleeding and it can be normal up to 6 months after IUD placementR eturn precaution s discussed. Health Concerns Section Related Observation LastModified by Organization Detai ls LastModified Time None Recorded Concern Status LastModified by Organization Details LastModified Time None Recorded Advance Directives Directive N: Payers Encounter Date Sequence Insurance Name Policy Number Policy Bruce Covered Member ID Bruce Member ID Guarantor Name 08/16/2023 1 [employer] [facility] (MEDICAID HMO) [id number] Staci Haines [id number] Staci Haines 09/05/2023 1 [facility] (MEDICAID HMO) [id number] Staci Haines [id number] Staci Haines 12/17/2023 1 [facility] (MEDICAID HMO) [id number] Staci Haines [id number] Staci Haines 01/03/2024 1 [facility] (MEDICAID HMO) [id number] Staci Haines [id number] Staci Haines Notes Date Note Type Note [...] successfully Taylor Hurtado MD Attn: [address] [place], [address], [facility] 08/20/2023 16:28:54 4 text/html 28 yo with no pmh present to clinic for a routine pap, iud removal and insertion. Patient states last pap was 2 yo. Prev iud was placed 5 -6 years ago. Patient was denies being sexually active currentlyPatient denies history ofbreast canceruterine cavity abnormalityheart conditionsabnormal uterine bleedingliver abnormalities. Brenda Drake MD Attn: [address] [place], [address], [facility] 09/05/2023 23:16:25 4 text/html CC: IUD Mirena placement Procedure for shelter control options discussed including Nexplanon, Mirena IUD [...] UTD. NADEGE PURDY MD Attn: [address] [place], [address], [facility] 12/19/2023 13:29:32 4 text/html 28 yo F [...] hours. Brenda Drake MD Attn: [address] [place], [address], [facility] 01/03/2024 21:14:19 OBGyn Episode Ob Episode Information Episode Created Date Number of Fetuses Patient Bloodtype Patient rh Status Prepregnancy Weight lbs Domestic Partner Domestic Partner Phone Father Name Investigation Division Lieutenant Status 01/16/20 25 1 245 OPEN Fetus Data First Name Last Name Admitted to NICU Weight (g) Sex Living Outcome Pediatric Complications Fetus ID Race Codes Race Delivery Type [id number] Problems Problem Notes Continuity Resident: Paty baker FOB: Russell Stallwotrh Contraception: None Problem Name Start Date End Date Resolution Snomed Code Not e Obese class III 01/17/2025 [id number] BMI prior to 41 Monitor weight during target total weight gain 11- 20 pounds. Recommendations-Reduc e drinks with high sugar like soda or juice, increase water intake.-Increase fresh fruits and vegetables to diet.-Reduce portions and limit snacks. Nausea and vomiting in 01/17/2025 [id number] Presenting with nausea and vomiting in first trimester, will start pyridoxine and unison. Encouraged hydration and small frequent meals. Exercise induced bronchospasm 01/17/2025 [id number] Controlled with inhaler. Recent exacerbation due to anxiety. Avoid carboprost during delivery. Kwabena Calculation Initial Kwabena Date Initial Exam Date Initial Exam Provider Initial Ultrasound Date Last Menstrual Period Date Ultra Sound Weeks Gestation 01/15/2025 01/20/2025 11/29/2024 7 Eighteen To Twenty Week Kwabena Update Ultra Sound Date Fundal Height At Umbil Quickening Date Ultra Sound Latest Weeks Gestation Final Kwabena Confirmed By Final Kwabena Confirmed Date Final Kwabena Date Ultra Sound Latest Days Gestation 0 [email or web address] 01/23/2025 09/05/19 26 0 Pre- Flowsheet Flowsheet Date 01/14/2025 Pena Score Blood Edema Fundus Height Fundus Units Glucose Ketones Leukocytes Nitrite Labor Signs Protein Cervic Dilation Cervic Effacement Cervic Station none none negative none neg Type Weight in lbs Pre/Post Dialysis Refused [id number] BP Diastolic BP Location Tested BP Systolic BP Type 77 R arm 107 sitting Fetus Heart Rate Present Fetus Movement Comments Staci Haines is a 29y/o G [id number] presenting @ 6w4d dated by LMP: November 29, 2024; here for initial OB exam. Initial US pending. Preg complicated by: depression and anxiety (on Zoloft), exercise induced asthma, obesity. She has no significant concerns today and reports normal antepartum symptoms of . She reports clear vaginal discharge, pruritis, denies vaginal malodor, bleeding, loss of fluid, or pain. Previously having abdominal pain, specially post intercourse, no constipation. Symptoms resolved with intercourse cessation. Reports daily nausea and vomitingPlanInitial labsPharmacy referralContinue PNVPyridoxine and Unisom for N/V Nuswab US for dates Follow up in 4 weeks Menstrual History Last Menstrual Date Menses Monthly On Bcp Conception Prior Menses Frequency Hcg Plus Date Menarche Onset Age 0311/29/2024 Genetic Screening And Infection History Question Response Note Patient's Age Will Be 35 Years Or Older At Estim ated Date of Delivery false Delivery Information Delivery Date Delivery Type Labor Anesthesia Weeks Gestation Incision Type Labor Labor Length Hrs Delivered By Post Complications Tubal Sterilization Discharge Date Comments Discharge Information Feeding Method Contraceptive Method Maternal HG B and HCT Levels
--- OUTSIDE RECORDS SUMMARY | 2025-01-28 15:05 | XMS_ITS | Clinical Summary ---
Author Organization [facility] Address [address] [place] [address] Care Team Providers Care Women'S Soccer Coach Name Role Phone Unknown, Notinfile Primary Care [...] Comments Blood Pressure 130/79 07/09/2023 4:58 AM SENIOR SALES CONSULTANT Pulse 86 07/09/2023 4:58 AM SENIOR SALES CONSULTANT Temperature 37.3 C (99.2 F) 07/09/2023 4:58 AM SENIOR SALES CONSULTANT Respiratory Rate 16 07/09/2023 4:58 AM SENIOR SALES CONSULTANT Oxygen Saturation 98% 07/09/2023 4:58 AM SENIOR SALES CONSULTANT Inhaled Oxygen Concentration - - Weight 110.7 kg (244 lb) 07/09/2023 4:58 AM SENIOR SALES CONSULTANT Height 162.6 cm (5' 4) 07/09/2023 4:58 AM SENIOR SALES CONSULTANT Body Mass Index 41.88 07/09/2023 4:58 AM SENIOR SALES CONSULTANT Plan of Treatment Health Maintenance Due Date [...] patient's age to complete this topic Insurance [facility] Care Teams Women'S Soccer Coach Relationship Specialty Start Date End Date Unknown, Notinfile PCP - General 01/23/23
--- OUTSIDE RECORDS SUMMARY | 2025-01-28 15:05 | XMS_ITS | Referral Summary ---
Author Organization [facility] Address [address] [place] [address] Care Team Providers Care Machine Tech Name Role Phone Unknown, Notinfile Primary Care [...] Comments Blood Pressure 130/79 07/09/2023 4:58 AM TOWEL DISTRIBUTOR Pulse 86 07/09/2023 4:58 AM TOWEL DISTRIBUTOR Temperature 37.3 C (99.2 F) 07/09/2023 4:58 AM TOWEL DISTRIBUTOR Respiratory Rate 16 07/09/2023 4:58 AM TOWEL DISTRIBUTOR Oxygen Saturation 98% 07/09/2023 4:58 AM TOWEL DISTRIBUTOR Inhaled Oxygen Concentration - - Weight 110.7 kg (244 lb) 07/09/2023 4:58 AM TOWEL DISTRIBUTOR Height 162.6 cm (5' 4) 07/09/2023 4:58 AM TOWEL DISTRIBUTOR Body Mass Index 41.88 07/09/2023 4:58 AM TOWEL DISTRIBUTOR Plan of Treatment Not on file Insurance [facility] Care Teams Machine Tech Relationship Specialty Start Date End Date Unknown, Notinfile PCP - General 01/23/23
[2025-01-28 15:20] VITALS: BP 138/77; PULSE 68; RESP 16; TEMP 36.3; O2SAT 98
--- NOTE | 2025-01-28 15:21 | ED_ITS ---
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 Reports this started earlier today. Her LMP is 11/29/24. Reports she has had an ultrasound this . Seeing a provider at an outside facility, but is trying to switch to a provider at [place]. Reports very mild pelvic cramping. GENERAL: Well-appearing, well-nourished, and in no acute distress. HEAD: Normocephalic, atraumatic. CHEST: Clear to auscultation. ?No respiratory distress. HEART: Regular rate and rhythm.? NEURO: ?Alert and oriented x3. Patient screened in triage and initial orders placed.? ?Additional care and disposition to be based upon?diagnostic testing and treatment. <Sarah Paez PA-C - Last Filed: 01/29/25 09:12> Related Data Home medications: Home Medications ?Medication ?Instructions ?Recorded ?Confirmed ?Last Taken ?Type paroxetine HCl 20 mg tablet 20 mg PO DAILY 12/26/23 12/08/24 Unknown History levonorgestrel (Mirena) 1 device intrauterine ONCE 05/08/24 12/08/24 Unknown History <Sarah Paez PA-C - Last Filed: 01/29/25 09:12> Allergies/Adverse reactions: Allergies Allergy/AdvReac Type Severity Reaction Status Date / Time No Known Allergies Allergy Verified 01/28/25 15:03 <Sarah Paez PA-C - Last Filed: 01/29/25 09:12> Review of Systems 2 Review of Systems: All systems reviewed & are unremarkable except as noted in HPI and below <Nkechi Ryan APRN - Last Filed: 01/29/25 03:49> PMFSH Past Medical History Medical History: Medical History Fracture of third metatarsal bone of left foot Fracture of fourth metatarsal bone of left foot Fracture of fifth metatarsal bone of left foot IUD (intrauterine device) in place Depression <Sarah Paez PA-C - Last Filed: 01/29/25 09:12> Surgical History Surgical History: Surgical History Hx of breast reduction, elective <Sarah Paez PA-C - Last Filed: 01/29/25 09:12> Family History Family History: Family History Other Asthma Depression Hypertension <Sarah Paez PA-C - Last Filed: 01/29/25 09:12> Social History Social History: Social History Smoking status: Never smoker Alcohol intake: current Do You Feel Safe in your Home?: Yes Lack of Transportation: No Lack of Food: Never True Current Housing: I Have Housing Concerned About Future Housing: No Difficulty Paying Gas/Electric Bills: No Difficulty Paying for Meds: No Currently Unemployed: No Education: Trade/Vocational Certificate Difficulty w/ Childcare or Family Care: No <Sarah Paez PA-C - Last Filed: 01/29/25 09:12> Exam 2 Narrative: GENERAL: Well appearing, well-nourished, non-toxic, in no acute distress. HEAD: Normocephalic, atraumatic. NECK: Supple. No adenopathy, no masses. RESPIRATORY: Airway patent, respirations nonlabored. Clear to auscultation bilaterally, no rales, rhonchi, wheezing. CARDIOVASCULAR: Regular rate and rhythm without murmurs, rubs, or gallops. Peripheral pulses 2+ and equal bilaterally. ABDOMINAL: Soft, nontender, nondistended, no hepatosplenomegaly. Normoactive BS. MUSCULOSKELETAL: Moves all extremities. Strength/ROM intact without gross deformities. SKIN: Warm, dry, normal color. No rashes. NEURO: A&O X3. Speech clear. Cranial nerves II-XII intact. No ataxic movements. PSYCHIATRIC: Appropriate mood and affect. Normal interaction. : declined pelvic exam <Nkechi Ryan APRN - Last Filed: 01/29/25 03:49> Course Vital Signs Vital signs: Vital Signs Temperature 97.4 F L 01/28/25 15:20 Pulse Rate 68 01/28/25 15:20 Respiratory Rate 16 01/28/25 15:20 Blood Pressure 138/77 01/28/25 15:20 Pulse Oximetry 98 01/28/25 15:20 Temperature 97.4 F L 01/28/25 22:00 Pulse Rate 74 01/28/25 22:00 Respiratory Rate 18 01/28/25 22:00 Blood Pressure 130/76 01/28/25 22:00 Pulse Oximetry 99 01/28/25 22:00 <Sarah Paez PA-C - Last Filed: 01/29/25 09:12> Vital Signs Temperature 97.4 F L 01/28/25 15:20 Pulse Rate 68 01/28/25 15:20 Respiratory Rate 16 01/28/25 15:20 Blood Pressure 138/77 01/28/25 15:20 Pulse Oximetry 98 01/28/25 15:20 Temperature 97.4 F L 01/28/25 22:00 Pulse Rate 74 01/28/25 22:00 Respiratory Rate 18 01/28/25 22:00 Blood Pressure 130/76 01/28/25 22:00 Pulse Oximetry 99 01/28/25 22:00 <Nkechi Ryan, CERTIFIED PEDIATRIC NURSE PRACTITIONER - Last Filed: 01/29/25 03:49> MDM - OB/Uterine Contractions MDM Narrative Medical decision making narrative: This is a 29 year old female that presents to the ER for vaginal bleeding in early . Reports this started earlier today. Her LMP is 11/29/24. Reports she has had an ultrasound this . Seeing a provider at an outside facility, but is trying to switch to a provider at [place]. Reports very mild pelvic cramping. Labs Ordered: CBC, CMP, PTT, INR, beta hCG quant, UA Imaging Ordered: Ultrasound Ob less than 14 weeks Medications Ordered: None necessary Results: Pt's US indicates Single live intrauterine of 8 weeks and 3 days. SIMIN is September 06, 2025. Diagnosis: threatened miscarriage, bleeding during Consults: OBGYN (outpatient) Patient Education/Shared MDM: Results of lab work and imaging shared with patient. She denies any discomfort at the time of re-examination. Pt declines a vaginal examination. Patient strongly advised to maintain hydration status upon discharge and follow-up with OBGYN as soon as possible. They will not be discharged home with any new prescriptions. Strict return precautions provided. Patient verbalized understanding and is in agreement with plan. Vital signs stable at time of discharge. All questions answered. <Nkechi Ryan APRN - Last Filed: 01/29/25 03:49> Differential Diagnosis Differential diagnosis: Likely other (Urinary tract infection, threatened miscarriage, subchorionic hemorrhage, vaginal bleeding during ) <Nkechi Ryan APRN - Last Filed: 01/29/25 03:49> Lab Data Attestation: I reviewed the patient's lab results. <Nkechi Ryan APRN - Last Filed: 01/29/25 03:49> Result diagrams: 01/28/25 18:44 01/28/25 18:44 <Sarah Paez PA-C - Last Filed: 01/29/25 09:12> Labs: Lab Results 01/28/25 01/28/25 Range/Units 18:44 20:00 WBC 9.7 (4.5-10.0) K/mm3 RBC 4.21 (4.2-5.4) M/mm3 Hgb 12.2 (12.0-15.0) g/dL Hct 37.1 (37.0-47.0) % MCV 88.1 (80-100) fl MCH 29.0 (26-34) pg MCHC 32.9 (32-36) g/dl RDW 13.3 (11.5-14.5) % Plt Count 293 (150-375) k/mm3 MPV 11.4 H (7.4-10.4) fl Immature Gran % (Auto) 0.4 (0-0.5) % Neut % (Auto) 67.0 (45.5-73.1) % Lymph % (Auto) 22.8 (18.3-44.2) % [place] % (Auto) 7.2 (2.6-8.5) % Eos % (Auto) 2.1 (0-4.4) % Baso % (Auto) 0.5 (0.2-1.2) % Lymph # (Auto) 2.21 (0.9-3.2) K/mm3 [place] # (Auto) 0.7 H (0.1-0.6) K/mm3 Eos # (Auto) 0.2 (0-0.3) K/mm3 Baso # (Auto) 0.1 (0.0-0.1) K/mm3 Abs Immat Gran (auto) 0.04 H (0.00-0.031) K/mm3 Absolute Neuts (auto) 6.5 (1.3-6.7) K/mm3 Absolute Nucleated RBC 0.000 (0.0-0.012) K/mm3 Nucleated RBC % 0.0 (0.0-0.2) % PT 12.9 (11.1-14.7) Seconds INR 0.9 APTT 26.7 (22.3-36.8) Seconds Sodium 137 (137-145) mmol/L Potassium 3.8 (3.4-5.0) mmol/L Chloride 105 (98-107) mmol/L Carbon Dioxide 23 (22-30) mmol/L Anion Gap 9 (4-12) mmol/L BUN 8 (7-17) mg/dL Creatinine 0.62 L (0.7-1.0) mg/dL Estim Creat Clear Calc 150 ml/min Estimated GFR > 60 (59 - ) Glucose 96 (65-110) mg/dL Calcium 9.3 (8.4-10.2) mg/dL Total Bilirubin 0.3 (0.2-1.3) mg/dL AST 23 (14-36) U/L ALT 15 (6-35) U/L Alkaline Phosphatase 74 (38-126) U/L Total Protein 7.0 (6.3-8.2) g/dL Albumin 4.2 (3.5-5.1) g/dL Beta HCG, Quant 020710.00 mIU/ML Urine Color Yellow (Yellow) Urine Appearance Clear (Clear) Urine pH 6.5 (5.0-9.0) Ur Specific [place] 1.019 (1.001-1.035) Urine Protein Negative (Negative) mg/dL Urine Glucose (UA) Negative (Negative) mg/dL Urine Ketones Trace H (Negative) mg/dL Ur Blood (Man) 1+ H (Negative) Urine Nitrate Negative (Negative) Urine Bilirubin Negative (Negative) Urine Urobilinogen 1.0 (<2.0) mg/dL Leukocyte Esterase Rfl Negative (Negative) FLOR/UL Urine RBC 3-5 H (0-2) /hpf Urine WBC 0-5 (0-3) /hpf Ur Squamous Epith Cells None seen (Few) /hpf Urine Bacteria None seen /hpf Urine Casts 0-2 Blood Type O Positive Antibody Screen Negative Doses of RhIg Required 0 <Sarah Paez PA-C - Last Filed: 01/29/25 09:12> Lab Results 01/28/25 01/28/25 Range/Units 18:44 20:00 WBC 9.7 (4.5-10.0) K/mm3 RBC 4.21 (4.2-5.4) M/mm3 Hgb 12.2 (12.0-15.0) g/dL Hct 37.1 (37.0-47.0) % MCV 88.1 (80-100) fl MCH 29.0 (26-34) pg MCHC 32.9 (32-36) g/dl RDW 13.3 (11.5-14.5) % Plt Count 293 (150-375) k/mm3 MPV 11.4 H (7.4-10.4) fl Immature Gran % (Auto) 0.4 (0-0.5) % Neut % (Auto) 67.0 (45.5-73.1) % Lymph % (Auto) 22.8 (18.3-44.2) % [place] % (Auto) 7.2 (2.6-8.5) % Eos % (Auto) 2.1 (0-4.4) % Baso % (Auto) 0.5 (0.2-1.2) % Lymph # (Auto) 2.21 (0.9-3.2) K/mm3 [place] # (Auto) 0.7 H (0.1-0.6) K/mm3 Eos # (Auto) 0.2 (0-0.3) K/mm3 Baso # (Auto) 0.1 (0.0-0.1) K/mm3 Abs Immat Gran (auto) 0.04 H (0.00-0.031) K/mm3 Absolute Neuts (auto) 6.5 (1.3-6.7) K/mm3 Absolute Nucleated RBC 0.000 (0.0-0.012) K/mm3 Nucleated RBC % 0.0 (0.0-0.2) % PT 12.9 (11.1-14.7) Seconds INR 0.9 APTT 26.7 (22.3-36.8) Seconds Sodium 137 (137-145) mmol/L Potassium 3.8 (3.4-5.0) mmol/L Chloride 105 (98-107) mmol/L Carbon Dioxide 23 (22-30) mmol/L Anion Gap 9 (4-12) mmol/L BUN 8 (7-17) mg/dL Creatinine 0.62 L (0.7-1.0) mg/dL Estim Creat Clear Calc 150 ml/min Estimated GFR > 60 (59 - ) Glucose 96 (65-110) mg/dL Calcium 9.3 (8.4-10.2) mg/dL Total Bilirubin 0.3 (0.2-1.3) mg/dL AST 23 (14-36) U/L ALT 15 (6-35) U/L Alkaline Phosphatase 74 (38-126) U/L Total Protein 7.0 (6.3-8.2) g/dL Albumin 4.2 (3.5-5.1) g/dL Beta HCG, Quant 574557.00 mIU/ML Urine Color Yellow (Yellow) Urine Appearance Clear (Clear) Urine pH 6.5 (5.0-9.0) Ur Specific [place] 1.019 (1.001-1.035) Urine Protein Negative (Negative) mg/dL Urine Glucose (UA) Negative (Negative) mg/dL Urine Ketones Trace H (Negative) mg/dL Ur Blood (Man) 1+ H (Negative) Urine Nitrate Negative (Negative) Urine Bilirubin Negative (Negative) Urine Urobilinogen 1.0 (<2.0) mg/dL Leukocyte Esterase Rfl Negative (Negative) FLOR/UL Urine RBC 3-5 H (0-2) /hpf Urine WBC 0-5 (0-3) /hpf Ur Squamous Epith Cells None seen (Few) /hpf Urine Bacteria None seen /hpf Urine Casts 0-2 Blood Type O Positive Antibody Screen Negative Doses of RhIg Required 0 <Nkechi Ryan APRN - Last Filed: 01/29/25 03:49> Imaging Data Attestation: I personally reviewed and interpreted this imaging study as follows: < Nkechi Ryan APRN - Last Filed: 01/29/25 03:49> Radiologist's impression: Impressions Ultrasound 01/28/25 16:02 IMPRESSION: Single live intrauterine of 8 weeks and 3 days. SIMIN is September 06, 2025 <Nkechi Ryan APRN - Last Filed: 01/29/25 03:49> Critical Care Time Critical Care Time Critical Care Time: No <Sarah Paez PA-C - Last Filed: 01/29/25 09:12> Discharge Plan Discharge Clinical Impression: Threatened miscarriage, Vaginal bleeding during , Abdominal cramping affecting <Sarah Paez PA-C - Last Filed: 01/29/25 09:12> Patient Disposition: Home <Sarah Paez PA-C - Last Filed: 01/29/25 09:12> Condition: Stable <Sarah Paez PA-C - Last Filed: 01/29/25 09:12> Instructions: Antibiotic Form, Abdominal Pain in (ED) <Sarah Paez PA-C - Last Filed: 01/29/25 09:12> Additional Instructions: Please return to the ER with any worsening symptoms. Follow-up with your OBGYN as soon as possible. You may take Tylenol for pain control. <Sarah Paez PA-C - Last Filed: 01/29/25 09:12> Patient Language: Yi <Sarah Paez PA-C - Last Filed: 01/29/25 09:12> Prescriptions: No Action paroxetine HCl 20 mg tablet 20 mg PO DAILY Mirena 21 mcg/24 hr (8 yrs) 52 mg Intrauterine Device 1 device INTRAUTERINE ONCE Rx Instructions: as a single dose <Sarah Paez PA-C - Last Filed: 01/29/25 09:12> Follow-up/Referrals: Manuel,COOPER White [Primary Care Provider] - <Sarah Paez PA-C - Last Filed: 01/29/25 09:12> Time of Disposition: 21:51 <Sarah Paez PA-C - Last Filed: 01/29/25 09:12> 21:51 <Nkechi Ryan APRN - Last Filed: 01/29/25 03:49>
[2025-01-28 19:00] LABS: Basophils Absolute Auto 0.1 K/mm3 (0.0-0.1); Basophils Percent Auto 0.5 % (0.2-1.2); Eosinophils Absolute Auto 0.2 K/mm3 (0-0.3); Eosinophils Percent Auto 2.1 % (0-4.4); Hematocrit 37.1 % (37.0-47.0); Hemoglobin 12.2 g/dL (12.0-15.0); Immature Granulocyte Absolute 0.04 K/mm3 (0.00-0.031); Immature Granulocyte Percent A 0.4 % (0-0.5); Lymphocytes Absolute Auto 2.21 K/mm3 (0.9-3.2); Lymphocytes Percent Auto 22.8 % (18.3-44.2); Mean Corpuscular HGB Conc 32.9 g/dl (32-36); Mean Corpuscular Volume 88.1 fl (80-100); Mean Platelet Volume 11.4 fl (7.4-10.4); Monocytes Absolute Auto 0.7 K/mm3 (0.1-0.6); Monocytes Percent Auto 7.2 % (2.6-8.5); Neutrophils Absolute Auto 6.5 K/mm3 (1.3-6.7); Platelet Count Result 293 k/mm3 (150-375); Red Blood Count 4.21 M/mm3 (4.2-5.4); Red Cell Distribution Width 13.3 % (11.5-14.5); White Blood Count 9.7 K/mm3 (4.5-10.0)
--- OUTSIDE RECORDS SUMMARY | 2025-01-28 19:08 | XMS_ITS | Clinical Summary ---
Author Organization [facility] Address [address] [place] [address] Care Team Providers Care Timekeeping Supervisor Name Role Phone Reuben Goff MD Primary Care Provider Source Comments [facility],non-owned Affiliates and Associated Physician Practices is amultiple site organization consisting of ambulatory clinics and hospital sitesin [place], [place], [place] and [place]. This disclosure is being madepursuant to the Care Everywhere program and may not contain all information available regarding this patient. Last updated 18.[facility] Allergies No known active allergies Medications * [...] - 01/20/2025 11:59 PM CDT Hospital Encounter [facility] MATERNAL/ EVALUATION UNIT [address] [place] [address] Taylor Chang MD Discharge Disposition: Home or Self Care 01/20/2025 Travel 01/16/2025 Telephone [facility] Maternal & Care [address] [place] [address] Akila Mauricio RN Future Appointment (Called Dr. Mcclain's office to discuss referral. ) 01/16/2025 Telephone [facility] MATERNAL/ EVALUATION UNIT 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 Coding ====== Procedures 74335: 1st Trimester 64183: [place] Preg Uterus Transvaginal [facility] PACS Anatomical Region Laterality Modality Other 01/20/2025 10:1 0 AM CDT Taylor Chang MD [facility] ORDERABLES Edited Result - Final * [...] a test for HCV RNA (test code 85897) is suggested. For additional information please refer to http://education.BitGravity/faq/FKE33f2 (This link is being provided for informational/ educational purposes only.) Test Performed at: [facility] [id number] [place] [address] BERNARD FREITAS DO,MPH Blood BLOOD SPECIMEN / Unknown 06/29/2020 11:53 AM CDT 06/29/2020 11:53 AM CDT Maru Maria MEDICAL FACILITIES SECTION DIRECTOR-CNM LAB - CHEMISTRY OR DERABLES Final Result [facility] [address] [place] [address] * HIV-1 HIV-2 ANTIBODY + HIV P24 [...] purpose. For additional information please refer to http://education.BitGravity/faq/OUH509 (This link is being provided for informational/ educational purposes only.) The performance of this assay has not been clinically validated in patients less than 2 years old. Test Performed at: [facility] [address] [place] [address] BERNARD FREITAS DO,MPH Blood BLOOD SPECIMEN / Unknown 06/29/2020 11:53 AM CDT 06/29/2020 11:53 AM CDT Maru Freeman Crow MCLEAN-CNM LAB - CHEMISTRY OR DERABLES Final Result Performing Organization Address City/State/[facility] Co de Phone Number [employer] [facility] [address] [place] [address] * PAP IMAGE-GUIDED LIQUID BASE RFLX HPV+CT/NG (12/12/2018 11:12 AM CDT) Case Report Gynecologic Cytology Report Case: [id number] Authorizing Provider: Ivett Ray, Collected: 12/12/2018 11:12 AM Ordering Location: [facility] Obstetrics Received: 12/13/2018 11:12 AM Gynecology and [...] 1:15 PM CDT [facility] Interpretation CAMPUS INTERVIEWS INTERN Negative for intraepithelial lesion or malignancy. 12/18/2018 1:15 PM CDT [facility] at 1315 CDT Pap Footnote This specimen was evaluated by the ThinPrep Imaging System along with the an additional manual rescreening by a newspaper journalist and/or pathologist. 12/18/2018 1:15 PM CDT [facility] PATHOLOGY LAB Embedded Images 9 1:15 PM CDT [facility] LAB Pathology/Cytolo gy ENTIRE ENDOCERVIX / Unknown 12/12/2018 11:12 AM CDT 12/13/2018 11:12 AM CDT Ivett Ray MD LAB - PATHOLOGY/CYTO LOGY ORDERABLES Final Result Performing Organization Address City/State/[facility] Co de Phone Number [facility] PATHOLOGY LAB [address] [id number] [phone] from Last 3 Months or Most Recently Relevant to Health Maintenance Insurance MEDICAID - OUT OF STATE Care Teams Timekeeping Supervisor Relationship Specialty Start Date End Date Reuben Goff MD [address] [place] [address] PCP - General 02/14/18
--- OUTSIDE RECORDS SUMMARY | 2025-01-28 19:08 | XMS_ITS | Encounter Summary ---
Author Organization [facility] Address [address] [place] [address] Phone Care Team Providers Care Cross Country Coach Name Role Phone Cindy Jackson PAC Unavailable Cindy Jackson PAC Primary Care Pro vider Reason for Visit * Reason Comments Depression * Auth/Cert (Routine) Specialty Diagnoses / Procedures Referred By Phi t Referred To Contact Referral ID Status Reason Start Date Expiration Date Visits Re quested Visits Authorized [id number] 09 27 Encounter Details Date Type Department Care Team (Late st Contact Info) Description 01/27/2025 5:15 PM CDT Telemedicine [facility] Behavioral Health Services [address] [place] [address] Eleanor Li, [facility] 1 [place] [address] MDD (major depressive disorder), recurrent episode, moderate [...] Patient Instructions * Patient Instructions* Eleanor Li, [facility] - 01/27/2025 5:15 PM CDT Crisis Resources In-Home, Mental Health Crisis Assessment [facility] Crisis Intervention Team?[phone] ([place]) [facility] Crisis Intervention Team?.. [phone] ([place]) [facility] Available for individual, family, or friend for in-home assessment of mental health issues Crisis Stabilization- Residential 24-hour or short-term supervised care at a facility. Available for persons 18 and older, who are experiencing a mental health crisis and do not need hospitalization. [facility] provides 24-hour short-term supervised care for persons [...] expected to attend and to participate actively. [facility] will provide a safe and supportive environment conducive to achieving stability. No alcohol or drugs are allowed in the unit. All medications are dispensed by [facility] nurses at appropriate times. No visitors are allowed on the unit but there is a phone available for clients to use and make calls. Persons may refer themselves for crisis residential/stabilization services and may be referred by hospitals, police departments, mental health agencies, social service agencies, and families. [facility] ?.....? .[phone] [facility] ?.???..[phone] Brief Crisis Phone Counseling Behavioral Health Response (BHR)?[phone] / [phone] ([facility] (Medicaid patients) ?..[phone] If non-Medicaid patient, the caller will be referred to a local service provider Emergency Sites for Mental Health Assessment and Treatment Behavioral Health Urgent Care [facility] (5yrs old to adult) [address] [address] Sunday - Sunday 9:00 am - 7:00 pm *Last patient seen at 6:00 pm Hospitals with Inpatient Psychological Services for Children and/or Adolescents and Adults [facility] (also has substance use treatment for adults) (adolescent, adult) [address] [place] [address] [facility] (children, adolescents, adult) after business hours [phone] [address]. [facility] (children, adolescents, adult) [address] [place] [address] [facility] (also has substance use treatment for adults) (children, adolescents, adult) Phone: or [phone] [address] [place] [address] [facility] (adolescent, adult) Phone: or [phone] [address] [place] [address] Hospitals with Inpatient Psychological Services for Adults only [facility] (adult, geriatric) [address] [id number] [facility] Behavioral Health (adult) [address] [place] [address] [facility] (adult) Phone: or [phone] [address] [place] [address] [facility] (geriatric only) Phone: or [phone] [address] [place] [address] [facility] (adult, geriatric) [address] [place], [place] Hotline Numbers National Suicide Prevention Hotline: ?..?.3-136-132-CBPS (9488) or [address] [place] Sexual Assault Hotline?..?.?1-350-922-AFTON (3870) [facility] Sexual Assault Victims Support?..1-282.655.9906 [facility] Child Abuse Hotline?.1-885.897.5190 Domestic Violence Hotline?.?.8-972-771-S POLLY (7017) [facility] Lifeline?.? Trans Lifeline?.? LGBTQ Partner Abuse & Sexual Assault Line . .1- 630.415.3758 [facility] including support for opioids or other substances.? Crisis Text Line???..?.?.? Text the word help to 315263 [facility] Text Line for service referrals.?.?. Text the word help to 558273 [facility]?2-067-352-79 53 [place] SHRUTI Warmline? 9a-9p/7 days a week [facility] Warmline?..9-238-478-0953 documented in this encounter Progress Notes * Eleanor Li [facility]PC - 01/27/2025 5:15 PM CDT Images from the original note were not included. [facility] BEHAVIORAL HEALTH CLINICAL PROGRESS NOTE NAME: [...] Ready to change Department associated with goal: [facility] BEHAVIORAL HEALTH SERVICES Steps to achieve [...] [facility] Services [address] [place] [address] Eleanor Li LCPC [address] [place] [address] Discharge Disposition: Discharged to home or Selfcare documented as of this encounter Goals Goal Patient Goal Type Associated Problems Recent Progress Patient-Stated? Author Behavioral [facility] Behavioral Health On track(2023 3:13 PM SOFT TILE SETTER) Yes Kenzie Miller LCSW Note: I see nothing good in myself. I want to change that. I want to be happy again. Goal Reviewed with: patient today Readiness to change: Ready to change Department associated with goal: [facility] BE[facility]AVIORAL HEALTH SERVICES Steps to achieve [...] Health Behavioral Health On track(2023 3:13 PM SOFT TILE SETTER) No Kenzie Miller LCSW Note: Summer will report an improvement in mood Goal Reviewed with: patient today Readiness to change: Ready to change Department associated with goal: [facility]AL HE[facility] SERVICES Steps to achieve [...] track(2024 6:25 PM CDT) Yes Eleanor Li, HAMLET Note: Understand more and have a better reaction to things Goal/Objective: Decrease symptoms. Anticipated Time Frame for Goal Completion: 6 months Goal Reviewed with: patient Readiness to change: Ready to change Department associated with goal: [facility] BE[facility]AVIORAL HEALTH SERVICES Steps to achieve [...] documented as of this encounter Care Teams Cross Country Coach Relationship Specialty Start Date End Date Cindy Jackson PAC [address] [place] [address] PCP - General Physician Automotive Collision Repair Instructor 09/15/22 Cindy Jackson PAC [address] [place] [address] Physician Automotive Collision Repair Instructor Physician Automotive Collision Repair Instructor 09/08/22 documented as of this encounter
--- OUTSIDE RECORDS SUMMARY | 2025-01-28 19:08 | XMS_ITS | Referral Summary ---
Author Organization [facility] Address [address] [place] [address] Care Team Providers Care Recruiting Intern Name Role Phone Unknown, Notinfile Primary Care [...] Comments Blood Pressure 130/79 07/09/2023 4:58 AM TRANSACTIONAL PARALEGAL Pulse 86 07/09/2023 4:58 AM TRANSACTIONAL PARALEGAL Temperature 37.3 C (99.2 F) 07/09/2023 4:58 AM TRANSACTIONAL PARALEGAL Respiratory Rate 16 07/09/2023 4:58 AM TRANSACTIONAL PARALEGAL Oxygen Saturation 98% 07/09/2023 4:58 AM TRANSACTIONAL PARALEGAL Inhaled Oxygen Concentration - - Weight 110.7 kg (244 lb) 07/09/2023 4:58 AM TRANSACTIONAL PARALEGAL Height 162.6 cm (5' 4) 07/09/2023 4:58 AM TRANSACTIONAL PARALEGAL Body Mass Index 41.88 07/09/2023 4:58 AM TRANSACTIONAL PARALEGAL Plan of Treatment Not on file Insurance [facility] Care Teams Recruiting Intern Relationship Specialty Start Date End Date Unknown, Notinfile PCP - General 01/23/23
--- OUTSIDE RECORDS SUMMARY | 2025-01-28 19:08 | XMS_ITS | Clinical Summary ---
Author Organization [facility] Address [address] [place] [address] Phone Care Team Providers Care Rn Burn Name Role Phone Cindy Jackson PAC Unavailable [...] Team Description 01/28/2025 3:30 PM CDT Telemedicine [facility] Medical Group - Internal Medicine - [place] [address] [place] [phone] Cindy Jackson PAC MDD (major depressive disorder), recurrent episode, moderate (HCC) (Primary Dx) 01/27/2025 5:15 PM CDT Telemedicine [facility] Behavioral Health Services [address] [place] [address] Leanne Li LCPC MDD (major depressive disorder), recurrent episode, moderate (HCC) (Primary Dx) Discharge Disposition: Discharged to home or Selfcare 01/27/2025 Travel 01/16/2025 9:30 AM CDT [facility] [address] [place] [address] Leanne Li LCPC Discharge Disposition: Discharged to home or Selfcare 01/16/2025 Travel 01/08/2025 9:45 AM CDT [facility] [address] [place] [address] Leanne Li LCPC MDD (major depressive disorder), recurrent episode, moderate (HCC) (Primary Dx) Discharge Disposition: Discharged to home or Selfcare 01/08/2025 Travel 12/29/2024 2:00 PM CDT Office Visit [facility] Internal Medicine [facility] [address] [place] [address] Cindy Jackson PAC Major depressive disorder, recurrent episode, mild (HCC) (Primary Dx); as incidental finding Discharge Disposition: Discharged to home or Selfcare 12/29/2024 Travel 12/19/2024 Refill [facility] Internal Medicine [facility] [address] [place] [address] Cindy Jackson, TATIANA Medication Refill from Last [...] 162.6 cm (5' 4) 10/24/2023 3:40 PM ON AWAKE COUNSELOR Body Mass Index 42.16 10/24/2023 3:40 PM ON AWAKE COUNSELOR Plan of Treatment Upcoming Encounters Date Type Department Care Team (Late st Contact Info) Description 02/20/2025 1:45 PM CDT Telemedicine [facility] Behavioral Health Services [address] [place] [address] Leanne Li, [facility] 1 [place] [address] Discharge Disposition: Discharged to home or Selfcare [...] Health Behavioral Health On track(2023 3:13 PM ON AWAKE COUNSELOR) Yes Kenzie Miller LCSW Note: I see nothing good in myself. I want to change that. I want to be happy again. Goal Reviewed with: patient today Readiness to change: Ready to change Department associated with goal: [facility] BEHAVIORAL HEALTH SERVICES Steps to achieve [...] this in 6 months, or reevaluate. Behavioral [facility] Behavioral Health On track(2023 3:13 PM ON AWAKE COUNSELOR) No Kenzie Miller LCSW Note: Summer will report an improvement in mood Goal Reviewed with: patient today Readiness to change: Ready to change Department associated with goal: [facility] BEHAVIORAL HEALTH SERVICES Steps to achieve [...] Ready to change Department associated with goal: [facility] BEHAVIORAL HEALTH SERVICES Steps to achieve [...] HEPATITIS C ANTIBODY Routine 10/25/2023 3:42 PM ON AWAKE COUNSELOR STD exposure from Last 3 Months or Most Recently Relevant to Health Maintenance Results * XR - LOWER EXTREMITY (12/08/2024 12:00 AM CDT) Only the most recent of2 resultswithin the time period is included. 12/08/2024 us Provider Scan IMG DIAGNOSTIC ORDERABLES Final Result Performing Organization Address City/[facility]/ZIP Co de Phone Number SCAN * HEPATITIS C ANTIBODY (10/25/2023 3:42 PM ON AWAKE COUNSELOR) hepatitis C antibody 0.06 <1 S/CO [facility] ARCH [id number] B 10/26/2023 2:42 PM ON AWAKE COUNSELOR [facility] Comment: Signal/Cutoff ratio < [...] Blood Venipuncture / Unknown 10/25/2023 3:42 PM ON AWAKE COUNSELOR 10/25/2023 3:42 PM ON AWAKE COUNSELOR Cindy Jackson PAC CHEMISTRY ORDERAB LES Final Result [facility] [address] [facility] [place] [address], [place] from Last 3 Months or Most Recently Relevant to Health Maintenance Insurance [facility] Care Teams Rn Burn Relationship Specialty Start Date End Date Cindy Jackson, TATIANA [address] [place] [address] PCP - General Physician High School Academic Coach 09/15/22 Cindy Jackson, TATIANA [address] [place] [address] Physician High School Academic Coach Physician High School Academic Coach 09/08/22
--- OUTSIDE RECORDS SUMMARY | 2025-01-28 19:08 | XMS_ITS | Encounter Summary ---
Author Organization [facility] Address [address] [place] [address] Phone Care Team Providers Care Payroll Processor Name Role Phone Cindy Jackson PAC Unavailable Cindy Jackson PAC Primary Care Pro vider Reason for Visit * Reason Comments Depression Encounter Details Date Type Department Care Team (Late st Contact Info) Description 01/28/2025 3:30 PM CDT Telemedicine [facility] Medical Group - Internal Medicine - [place] [address] [place] [phone] Cindy Jackson PAC [address] [place] [address] MDD (major depressive disorder), recurrent episode, moderate [...] Info) Description 02/20/2025 1:45 PM CDT Telemedicine [facility] Behavioral Health Services [address] [place] [phone] Leanne Li LCPC 1 [place] [address] Discharge Disposition: Discharged to home or Selfcare documented as of this encounter Goals Goal Patient Goal Type Associated Problems Recent Progress Patient-Stated? Author Behavioral Health Behavioral Health On track(2023 3:13 PM STORE RECEIVER) Yes Kenzie Miller LCSW Note: I see nothing good in myself. I want to change that. I want to be happy again. Goal Reviewed with: patient today Readiness to change: Ready to change Department associated with goal: [facility] BEHAVIORAL HEALTH SERVICES Steps to [...] Health Behavioral Health On track(2023 3:13 PM STORE RECEIVER) Kenzie Ramsey, DEMOLITION ENGINEER Note: Summer will report an improvement in mood Goal Reviewed with: patient today Readiness to change: Ready to change Department associated with goal: [facility] BEHAVIORAL HEALTH SERVICES Steps to [...] On track(2024 6:25 PM CDT) Leanne Solitario, GOVERNMENT AFFAIRS SPECIALIST Note: Understand more and have a better reaction to things Goal/Objective: Decrease symptoms. Anticipated Time Frame for Goal Completion: 6 months Goal Reviewed with: patient Readiness to change: Ready to change Department associated with goal: [facility] BEHAVIORAL HEALTH SERVICES Steps to [...] documented as of this encounter Care Teams Payroll Processor Relationship Specialty Start Date End Date Cindy Jackson PAC [address] [place] [address] PCP - General Physician Marketing Professor 09/15/22 Cindy Jackson PAC [address] [place] [address] Physician Marketing Professor Physician Marketing Professor 09/08/22 documented as of this encounter
--- OUTSIDE RECORDS SUMMARY | 2025-01-28 19:08 | XMS_ITS | Encounter Summary ---
Author Organization [facility] [employer] Care Team Providers Care Messaging Architect Name Role Phone Cindy Jackson PAC Unavailable ManuelCindy Mary PAC Primary Care Pro vider Encounter Details [...] Info) Description 02/20/2025 1:45 PM CDT Telemedicine [facility] Behavioral Health Services [address] [place] [phone] Leanne Li, [facility] 1 [place] [address] Discharge Disposition: Discharged to home or Selfcare documented as of this encounter Goals Goal Patient Goal Type Associated Problems Recent Progress Patient-Stated? Author [facility] Behavioral Health On track(2023 3:13 PM GLAZE HANDLER) Yes Kenzie Miller LCSW Note: I see nothing good in myself. I want to change that. I want to be happy again. Goal Reviewed with: patient today Readiness to change: Ready to change Department associated with goal: [facility] BEHAVIORAL HEALTH SERVICES Steps to [...] this in 6 months, or reevaluate. Behavioral [facility] Behavioral Health On track(2023 3:13 PM GLAZE HANDLER) No Kenzie Miller LCSW Note: Summer will report an improvement in mood Goal Reviewed with: patient today Readiness to change: Ready to change Department associated with goal: [facility] BEHAVIORAL HEALTH SERVICES Steps to [...] track(2024 6:25 PM CDT) Yes Leanne Li, PRESS TENDER SHORT GOODS Note: Understand more and have a better reaction to things Goal/Objective: Decrease symptoms. Anticipated Time Frame for Goal Completion: 6 months Goal Reviewed with: patient Readiness to change: Ready to change Department associated with goal: [facility] BEHAVIORAL HEALTH SERVICES Steps to [...] documented as of this encounter Care Teams Messaging Architect Relationship Specialty Start Date End Date Cindy Jackson, TATIANA [address] [place] [address] PCP - General Physician Civil Laboratory Technician 09/15/22 Cindy Jackson, TATIANA [address] [place] [address] Physician Civil Laboratory Technician Physician Civil Laboratory Technician 09/08/22 documented as of this encounter
--- OUTSIDE RECORDS SUMMARY | 2025-01-28 19:08 | XMS_ITS | Clinical Summary ---
Author Organization [facility] Address [address] [place] [address] Care Team Providers Care Capper Machine Operator Name Role Phone Unknown, Notinfile Primary [...] Comments Blood Pressure 130/79 07/09/2023 4:58 AM APPARATUS CLEANER Pulse 86 07/09/2023 4:58 AM APPARATUS CLEANER Temperature 37.3 C (99.2 F) 07/09/2023 4:58 AM APPARATUS CLEANER Respiratory Rate 16 07/09/2023 4:58 AM APPARATUS CLEANER Oxygen Saturation 98% 07/09/2023 4:58 AM APPARATUS CLEANER Inhaled Oxygen Concentration - - Weight 110.7 kg (244 lb) 07/09/2023 4:58 AM APPARATUS CLEANER Height 162.6 cm (5' 4) 07/09/2023 4:58 AM APPARATUS CLEANER Body Mass Index 41.88 07/09/2023 4:58 AM APPARATUS CLEANER Plan of Treatment Health Maintenance Due Date [...] [facility] Care Teams Capper Machine Operator Relationship Specialty Start Date End Date Unknown, Notinfile PCP - General 01/23/23
--- OUTSIDE RECORDS SUMMARY | 2025-01-28 19:08 | XMS_ITS | Data Portability ---
Author Organization [facility] JACKIECamila [facility] Address [address] [place] [address] Assessment No assessment recorded. Plan of Treatment Reminders Order Date Submit Date Provider Last Modified By Organization Details Last Modified Time Details Appointments ANY 15 2024 09:00A M RUDI GARCIA MD Not available Not available Not available Lab pregna ncy test, urine 2023 024 [id number] In-Office Order, Internal Use Only DO Not Attach Compendium DO Not Attach Compendium, Do Not Delete/merge, [id number] 12/17/2023 14:10:53 pregna ncy test, urine 2023 024 [email or web address] In-Office Order, Internal Use Only DO Not Attach Compendium DO Not Attach Compendium, Do Not Delete/merge, [id number] 09/05/2023 12:32:11 vagina l pathog ens panel, CHRIS+pr obe, vagina l fluid 2023 024 RON [facility], [address], [place], [address], 09/07/2023 07:13:24 pap, IG + HPV, cervic al 2023 024 RON [facility], [address], [place], [address], 09/10/2023 10:09:40 Referral None record ed. Procedures insert ion, intrau terine device (PROC) 2023 024 [email or web address] Not available 01/24/2024 13:16:02 remova l, intrau terine device (PROC) 2023 024 [email or web address] Not available 09/05/2023 12:36:11 Surgeries None record ed. Imaging None record ed. Medication Orders Mirena 21 mcg/24 hr (up to 8 years) 52 mg intrau terine device 2023 [email or web address] [address] [id number], [address] [place], [address], 01/17/2025 10:54:09 Prenat al 28 mg iron-8 00 mcg tablet 2023 RON [id number], [address] [place], [address], 12/17/2023 10:02:22 Patient TargetsNo targets recorded. Patient Instructions Encounter Date Encounter Id Patient Instructions Last Modified By Organization Details Last Modified Time 08/16/2023 [id number] A healthy lifestyle: care instructions [email or web address] Not [...] clinic for IUD exchange. Taylor Hurtado MD [email or web address] Not available 08/20/2023 16:28:33 12/17/2023 [id number] Attending Physician Attestation I personally saw and [...] e test positive Referring Physician: Paty Quick, Collet Driller, Encounter Date: 01/14/2025 Results Created Date Observation Date Name Description Value Unit Range Abnormal Flag Note LastModifiedBy Organization Detail LastModifiedTime 09/05/19 24 09/06/2023 NUSWA B VAGIN ITIS PLUS (VG+) atopobium vaginae High - 2 score abnormal Not Available [facility] ([facility]) [address] [facility], [place], [address], 09/07/2023 07:13:24 09/05/19 24 09/06/2023 NUSWA B VAGIN ITIS PLUS (VG+) bvab 2 High - 2 score abnormal Not Available [facility] ([facility]) [address] [facility], [place], [address], 09/07/2023 07:13:24 09/05/19 24 09/06/2023 NUA B [...] Drug Admin istra tion. Not Available [facility] ([facility]) [address] [facility], [place], [address], 09/07/2023 07:13:24 09/05/19 24 09/06/2023 NUA B VAGIN ITIS PLUS (VG+) massimo albicans, CHRIS Negati ve negati ve Not Available [facility] ([facility]) [address] [facility], [place], [address], 09/07/2023 07:13:24 09/05/19 24 09/06/2023 NUA B VAGIN ITIS PLUS (VG+) massimo glabrata, CHRIS Negati ve negati ve Not Available [facility] ([facility]) [address] [facility], [place], [address], 09/07/2023 07:13:24 09/05/19 24 09/07/2023 NUA B VAGIN ITIS PLUS (VG+) trich vag by CHRIS Negati ve negati ve Not Available [facility] ([facility]) [address] [facility], [place], [address], 09/07/2023 07:13:24 09/05/19 24 09/07/2023 NUA B VAGIN ITIS PLUS (VG+) chlamydia trachomatis, CHRIS Negati ve negati ve Not Available [facility] ([facility]) [address] [facility], [place], [address], 09/07/2023 07:13:24 09/05/19 24 09/07/2023 NUA B VAGIN ITIS PLUS (VG+) neisseria gonorrhoeae, CHRIS Negati ve negati ve Not Available [facility] ([facility]) [address] [facility], [place], [address], 09/07/2023 07:13:24 09/05/1909/07/2023 IGP, APTIM A HPV HPV aptima Negati ve negati ve This nucle ic acid ampli ficat ion test detec ts fourt een high- risk HPV types (16,1 8,31, 33,35 ,39,4 5,51, 52,56 ,58,5 9,66, 68) witho ut diffe renti ation . Not Available [facility] ([facility]) [address] [facility], [place], [address], 09/10/2023 10:09:40 09/05/1909/10/2023 IGP, APTIM A HPV diagnosis: Commen t UNSAT ISFAC TORY FOR EVALU ATION . Not Available [facility] ([facility]) [address] [facility], [place], [address], 09/10/2023 10:09:40 09/05/19 24 09/10/2023 IGP, APTIM A HPV recommendati on: Renu Beard st follo w up as clini jay appro priat e. Not Available [facility] ([facility]) [address] [facility], [place], [address], 09/10/2023 10:09:40 09/05/19 24 09/10/2023 IGP, APTIM A HPV specimen adequacy: Renu wilson Speci men proce ssed and exami mahnaz, but unsat isfac tory for evalu ation of epith elial abnor malit y becau se of exces sive lubri cant. Not Available [facility] ([facility]) [address] [facility], [place], [address], 09/10/2023 10:09:40 09/05/19 24 09/10/2023 IGP, APTIM A HPV performed by: Renu severino, Cytot echno logis t (ASCP ) Not Available [facility] ([facility]) [address] [facility], [place], [address], 09/10/2023 10:09:40 09/05/19 24 09/10/2023 IGP, APTIM A HPV QC reviewed by: Sangita Jefferson y Cytot echno logis t (ASCP ) Not Available [facility] ([facility]) [address] [facility], [place], [address], 09/10/2023 10:09:40 09/05/19 24 09/10/2023 IGP, APTIM A HPV . . Not Available [facility] ([facility]) [address] [facility], [place], [address], 09/10/2023 10:09:40 09/05/19 24 09/10/2023 IGP, APTIM [...] ts do occur . Not Available [facility] ([facility]) [address] [facility], [place], [address], 09/10/2023 10:09:40 09/05/19 24 09/10/2023 IGP, APTIM A HPV test methodology: Renu t This liqui d based ThinP rep(R ) pap test was scree mahnaz with the use of an image guide judah martini. Not Available [facility] ([facility]) [address] [facility], [place], [address], 09/10/2023 10:09:40 09/05/19 24 09/05/2023 pregn emelina test, urine HCG negati ve Not Available In-Office Order Internal Use Only DO Not Attach Compendium DO Not Attach Compendium, Do Not Delete/merge, [id number] 09/05/2023 11:44:46 10/25/19 24 10/26/2023 Hepat itis C virus Ab Signa l/Cut off in Serum or Plasm a by Immun oassa y hepatitis C virus Ab signal/cutof f in serum or plasma by immunoassay 0.06 text: <1 S/co hepat itis C antib josh 0.06 <1 S/CO [facility] ARCH I2000 SR B 10/26 2:42 PM [employer] [facility] Not Available Not Available 01/13/2025 09:45:01 10/25/19 24 10/26/2023 Hepat itis C virus Ab Signa l/Cut off in Serum or Plasm a by Immun oassa y interpretati on and review of laboratory results Normal Not Available Not Available 01/01 09:45:01 12/17/1912/17/2023 pregn emelina test, urine HCG negati ve Not Available In-Office Order Internal Use Only DO Not Attach Compendium DO Not Attach Compendium, Do Not Delete/merge, [id number] 12/17/2023 11:54:24 01/15/20 25 01/15/2025 NUSWA B VAGIN ITIS PLUS (VG+) atopobium vaginae HIGH - 2 score abnormal Not Available [facility] ([facility]) [address] [facility], [place], [address], 01/16/2025 06:49:36 01/15/2001/15/2025 NUA B VAGIN ITIS PLUS (VG+) bvab 2 HIGH - 2 score abnormal Not Available [facility] ([facility]) [address] [facility], [place], [address], 01/16/2025 06:49:36 01/15/2001/15/2025 NUA B VAGIN ITIS [...] prese nce of BV. Not Available [facility] ([facility]) [address] [facility], [place], [address], 01/16/2025 06:49:36 01/15/20 25 01/15/2025 NUA B VAGIN ITIS PLUS (VG+) massimo albicans, CHRIS NEGATI VE negati ve Not Available [facility] ([facility]) [address] [place], [address], 01/16/2025 06:49:36 01/15/20 25 01/15/2025 NUSWA B VAGIN ITIS PLUS (VG+) massimo glabrata, CHRIS NEGATI VE negati ve Not Available [facility] ([facility]) [address] [facility], [place], [address], 01/16/2025 06:49:36 01/15/2001/16/2025 NUA B VAGIN ITIS PLUS (VG+) trich vag by CHRIS NEGATI VE negati ve Not Available [facility] ([facility]) [address] [facility], [place], [address], 01/16/2025 06:49:36 01/15/2001/16/2025 NUA B VAGIN ITIS PLUS (VG+) chlamydia trachomatis, CHRIS NEGATI VE negati ve Not Available [facility] ([facility]) [address] [facility], [place], [address], 01/16/2025 06:49:36 01/15/2001/16/2025 NUA B VAGIN ITIS PLUS (VG+) neisseria gonorrhoeae, CHRIS NEGATI VE negati ve Not Available [facility] ([facility]) [address] [facility], [place], [address], 01/16/2025 06:49:36 01/15/2001/14/2025 urina lysis , dipst [...] 09:30:01 01/15/2001/14/2025 urina lysis , dipst ick Protein Trace [...] 01/14/2025 urina lysis , dipst ick Specific [place] 1.020 Not Available In-Off ice Order Internal [...] DO Not Attach Compendium, Do Not Delete/merge, [id number] 01/14/2025 09:30:01 01/15/2001/14/2025 urina lysis , dipst ick Color Yellow Not Available In-Office Order Internal Use Only DO Not Attach Compendium DO Not Attach Compendium, Do Not Delete/merge, [id number] 01/14/2025 09:30:01 01/15/20 25 01/14/2025 pregn emelina test, urine HCG positi ve Not Available In-Office Order Internal Use Only DO Not Attach Compendium DO Not Attach Compendium, Do Not Delete/merge, [id number] 01/14/2025 09:29:47 01/22/2001/20/2025 US, trans vagin al No observ ation record ed. [email or web address] [facility] [address] [facility] [place], [address], 01/23/2025 08:29:59 Result Notes None recorded. Problems Name Problem SNOMED Code Status Onset Date Resolution Date Notes Provider Name and Address Organization Details Recorded Time Mixed anxiety and depressive disorder 729599414 Active 2022 ROLANDO UMANA DO Attn: Skyler corral,[address] [facility], [place], [address], [facility] 3 18:42:49 34258749 Active 2024 PATY QUICK MD Attn: Skyler g,[address] [facility], [place], [address], [place] 5 13:10:34 Nausea and vomiting in Active 2024 Presenting with nausea and vomiting in first trimester, will start pyridoxine and unison. Encouraged hydration and small frequent meals. PATY QUICK MD Attn: Skyler g,[address] [facility], [place], [address], [place] 5 11:41:41 Exercise induced bronchospa sm 049167890 Active 2024 Controlled with inhaler. Recent exacerbati on due to anxiety. Avoid carboprost during delivery. PATY QUICK MD Attn: Skyler corral,[address] [facility], [place], [address], [place] [facility] 5 11:49:19 Exercise induced bronchospa sm 840539484 Active 2024 Controlled with inhaler. Recent exacerbati on due to anxiety. Avoid carboprost during delivery. PATY QUICK MD Attn: Accountbria g,[address] [facility], [place], [address], [place] [facility] 5 11:49:19 Obese class III 937974206 Active 2024 BMI prior to 41 Monitor weight during target total weight gain 11- 20 pounds. Recommenda tions-Redu ce drinks with high sugar like soda or juice, increase water intake.-In crease fresh fruits and vegetables to diet.-Redu ce portions and limit snacks. PATY QUICK MD Attn: Accountbria g,[address] [facility], [place], [address], [place] [facility] 5 11:49:25 Problem Notes None recorded. Procedures Surgical History Date Name Laterality Status Provider Name and Address Organization Details Recorded Time 4 IUD Insertion completed Gama Torres MD Attn: Accounting,[address] [facility], [place], [address], [place] [facility] 12/17/2023 11:06:06 4 IUD Removal completed JODIE MENDOZA MD Attn: Accounting,[address] [place], [address], [place] [facility] 09/05/2023 12:57:59 3 Breast reduction completed Iman Villa [place] - [facility] 08/16/2023 14:40:11 excision of lymph node completed Iman Villa [place] [facility] 08/16/2023 14:40:25 Imaging Results None [...] 4 162.56 cm 97.5 [degF] 40.4 kg/m2 291291. 01 g 79 /min 16 /min 101 mm[Hg] 69 mm[Hg] Jazmin Guy MA [facility] 4 11:44:31 Date Recorded Body height Body mass index (BMI) Body weight Body temperature Heart rate Respiratory rate Oxygen saturation Oxygen saturation in Arterial blood by Pulse oximetry Systolic blood pressure Diastolic blood pressure Provider Name and Address Organization Details Last Updated DateTime 4 162.56 cm 37.1 kg/m2 77118.3 5 g 97.7 [degF] 70 /min 16 /min 98 % 98 % 116 mm[Hg] 74 mm[Hg] Britany Olivier MA [facility] 4 10:01:10 Date Recorded Body height Body mass index (BMI) Body weight Respiratory rate Body temperature Oxygen saturation Oxygen saturation in Arterial blood by Pulse oximetry Heart rate Systolic blood pressure Diastolic blood pressure Provider Name and Address Organization Details Last Updated DateTime 4 162.56 cm 36.8 kg/m2 74793.2 2 g 18 /min 97.9 [degF] 97 % 97 % 71 /min 106 mm[Hg] 73 mm[Hg] Josseline Clayton [facility] 4 11:33:38 Date Recorded Body weight Systolic blood pressure Diastolic blood pressure Provider Name and Address Organization Details Last Updated DateTime 01/14/2025 813046.092 5 g 107 mm[Hg] 77 mm[Hg] PATY QUICK MD Attn: Accounting,[address] [place] [address], [address], [facility] 01/17/2025 11:13:53 Date Recorded Body weight Body mass index (BMI) Body height Heart rate Oxygen saturation Oxygen saturation in Arterial blood by Pulse oximetry Body temperature Respiratory rate Systolic blood pressure Diastolic blood pressure Provider Name and Address Organization Details Last Updated DateTime 5 168135. 97 g 43 kg/m2 162.56 cm 72 /min 98 % 98 % 98.2 [degF] 16 /min 107 mm[Hg] 77 mm[Hg] Ivett Ngo MA [facility] 5 09:21:12 Date Recorded Body height Body mass index (BMI) Body weight Body temperature Heart rate Oxygen saturation Oxygen saturation in Arterial blood by Pulse oximetry Respiratory rate Systolic blood pressure Diastolic blood pressure Provider Name and Address Organization Details Last Updated DateTime 162.56 cm 40.3 kg/m2 914495. 21 g 97.9 [degF] 78 /min 98 % 98 % 16 /min 111 mm[Hg] 76 mm[Hg] Iman Villa [place] - [place] 14:37:45 Social History Question Answer Notes LastModified [...] COVID-19 While That Person Was Ill? No [email or web address] Information not available 01/03/2024 Have You Been To An Area Known To Be High Risk For COVID-19? No [email or web address] Information not available 01/03/2024 What Was The Date Of Your Most Recent Tobacco Screening? 01/14/2025 Information not available 01/14/2025 What Is Your Relationship Status? Single Information not available 01/14/2025 Are You Sexually Active? Yes [email or web address] Information not available 01/03/2024 Do You Have Smoke And Carbon Monoxide Detectors In Your Home? Yes [email or web address] Information not available 01/03/2024 Are You Passively Exposed To Smoke? Yes [email or web address] Information no t available 01/03/2024 Has Tobacco [...] Atrial Fibrillation N High Blood Pressure N Depression Y COPD N Blood Clots N Anxiety Disorder N Muscle, Joint, or Bone Problems N Acid Reflux (GERD) N Cancer N Stroke N Headaches N Kidney or Bladder Problems N Skin Problems N Asthma Y Allergies N Hepatitis N High Cholesterol N Liver Disease N Thyroid Problems N GI Problems N Anemia N Heart Attack ([place]) N Diabetes N Seizures/Epilepsy N Osteoporosis N Heart Failure N Gynecological History Statement/Question Response Flow Heavy Date of LMP 11/30/2023 Menses Monthly Y Duration of Flow (days) 5 Age at Menarche 12 Current Control Method IUD LMP Approximate Obstetrics History GPAL:G 1 P 0 0 0 0 Immunizations Vaccine Type Date Status Note Provider Nam e and Address Organization Details Recorded Time Hep B, unspecified formulation 4 completed Not Available [facility] 01/14/2025 08:55:17 Hep B, unspecified formulation 4 completed Not Available [facility] 01/14/2025 08:55:17 DTaP, unspecified formulation 4 completed Not Available [facility] 01/14/2025 08:55:17 polio, unspecified formulation 4 completed Not Available [facility] 01/14/2025 08:55:17 Hib, unspecified formulation 4 completed Not Available [facility] 01/14/2025 08:55:17 polio, unspecified formulation 5 completed Not Available [facility] 01/14/2025 08:55:17 Hib, unspecified formulation 5 completed Not Available [facility] 01/14/2025 08:55:17 DTaP, unspecified formulation 5 completed Not Available [facility] 01/14/2025 08:55:17 polio, unspecified formulation 5 completed Not Available [facility] 01/14/2025 08:55:17 DTaP, unspecified formulation 5 completed Not Available [facility] 01/14/2025 08:55:17 DTaP, unspecified formulation 5 completed Not Available [facility] 01/14/2025 08:55:17 Hep B, unspecified formulation 5 completed Not Available [facility] 01/14/2025 08:55:17 Hib, unspecified formulation 5 completed Not Available [facility] 01/14/2025 08:55:17 MMR 5 completed Not Available [facility] 01/14/2025 08:55:17 varicella 9 completed Not Available [facility] 01/14/2025 08:55:17 MMR 9 completed Not Available [facility] 01/14/2025 08:55:17 DTaP, unspecified formulation 9 completed Not Available [facility] 01/14/2025 08:55:17 polio, unspecified formulation 9 completed Not Available [facility] 01/14/2025 08:55:17 Tdap 7 completed Not Available [facility] 01/14/2025 08:55:17 Hep A, unspecified formulation 7 completed Not Available [facility] 01/14/2025 08:55:17 varicella 7 completed Not Available [facility] 01/14/2025 08:55:17 HPV, quadrivalent 5 completed Not Available [facility] 01/14/2025 08:55:17 COVID-19, mRNA, LNP-S, PF, 100 mcg/0.5mL dose or 50 mcg/0.25mL dose 1 completed Not Available [facility] 01/14/2025 08:55:17 COVID-19, mRNA, LNP-S, PF, 100 mcg/0.5mL dose or 50 mcg/0.25mL dose 1 completed Not Available [facility] 01/14/2025 08:55:17 Influenza, split virus, quadrivalent, PF 2 completed Not Available [facility] 01/14/2025 08:55:17 Hep A, adult 2 completed Not Available [facility] 01/14/2025 08:55:17 Tdap 2 completed Not Available [facility] 01/14/2025 08:55:17 meningococcal, unknown serogroups 7 completed ARTEMIO Villar[place], [place] - [facility] 01/28/2025 18:21:47 Past Encounters Encounter ID Performer Location Encounter Start Date Encounter Closed Date Diagnosis/Indication Diagnosis SNOMED-CT Code Diagnosis ICD10 Code Diagnosis Note [id number] MD Linda Tran [address] [facility] [address] 08/16/2023 14:16:03 08/21/2023 15:40:49 Contraception care management 724515461 Z30.9 Has state insuranceC an use mirena IUD from office supplyNeed s pap at same time Adult heal th examination 908026375 Z00.00 Discussed anticipato ry guidance Health maintenanc e includes STI testing. She has already been tested for HIV and syphilis in the past and negative. Will obtain swab when she comes back for her Pap smear. Mixed anxi ety and depressive disorder 219602262 F41.8 On Paroxetine Managed by other provider Obesity 590496735 E66.9 Healthy lifestyle encouraged including regular exercise of at least 150min per week, diet rich in plant based foods and low in added sugars, processed carbohydra kelley, and high salt foods. Encouraged protein intake mostly with chicken and white fish and limited red meat. Electronic cigarette user 936879533 Z72.89 Discussed cessation [id number] MD Linda Desir [address] [facility] [place] [address] 09/05/2023 11:10:23 09/06/2023 08:51:20 Screening for malignant neoplasm of cervix 524576255 Z12.4 Patient tolerated pap smear and removal of IUD but changed her mind about new IUD insertion. No new iud was inserted. Patient to follow up and decide if she wants a nexplanon instead.Shaun thomas states she is not sexually active currently so she wants more time to think about it. [id number] MD Linda TORRES [address] [facility] [place] [address] 12/17/2023 09:52:05 12/21/2023 13:42:58 Contraception care management 504355900 Z30.9 Successful placement of IUD. No complicati ons. preg test negative prior to placing. Pt declined STI testing. Has been done this past year. Plan- Good for 8 years- Use condoms for 1 week to prevent - String check 2 weeks- Fertility will be restored when removed [id number] MD Linda Desir [address] [facility] [place] [address] 01/03/2024 11:18:01 01/10/2024 10:01:32 IUD check 600333874 Z30.[address] e about [...] Bruce Member ID Guarantor Name 08/16/2023 1 [facility] (MEDICAID HMO) [id number] 0003 Staci Haines [id number] Staci Haines 09/05/2023 1 [facility] (MEDICAID HMO) [id number] 0003 Staci Haines [id number] Staci Haines 12/17/2023 1 [facility] (MEDICAID HMO) [id number] 0003 Staci Haines [id number] Staci Haines 01/03/2024 1 [facility] (MEDICAID HMO) [id number] 0003 Staci Haines [id number] Staci Haines Notes Date Note Type Note [...] successfully Taylor Hurtado MD Attn: Accounting,[address] [place], [address], [facility] 08/20/2023 16:28:54 4 text/html 28 yo with no pmh present to clinic for a routine pap, iud removal and insertion. Patient states last pap was 2 yo. Prev iud was placed 5 -6 years ago. Patient was denies being sexually active currentlyPatient denies history ofbreast canceruterine cavity abnormalityheart conditionsabnormal uterine bleedingliver abnormalities. Brenda Drake MD Attn: Accounting,[address] [place], [address], [facility] 09/05/2023 23:16:25 4 text/html CC: IUD Mirena placement Procedure for half-way control options discussed including Nexplanon, Mirena IUD [...] UTD. NADEGE PURDY MD Attn: Accounting[address] [place], [address], [facility] 12/19/2023 13:29:32 4 text/html 28 yo F [...] hours. Brenda Drake MD Attn: Accounting,[address] [place], [address], [facility] 01/03/2024 21:14:19 OBGyn Episode Ob Episode Information Episode Created Date Number of Fetuses Patient Bloodtype Patient rh Status Prepregnancy Weight lbs Domestic Partner Domestic Partner Phone Father Name [employer] Superintendent Status 01/16/20 25 1 245 OPEN Fetus Data First Name Last Name Admitted to NICU Weight (g) Sex Living Outcome Pediatric Complications Fetus ID Race Codes Race Delivery Type [id number] Problems Problem Notes Continuity Resident: Paty baker FOB: Russell Stallworth Contraception: None Problem Name Start Date End Date Resolution Snomed Code Not e Obese class III 01/17/2025 551920555 BMI prior to 41 Monitor weight during target total weight gain 11- 20 pounds. Recommendations-Reduc e drinks with high sugar like soda or juice, increase water intake.-Increase fresh fruits and vegetables to diet.-Reduce portions and limit snacks. Nausea and vomiting in 01/17/2025 6820441921 Presenting with nausea and vomiting in first trimester, will start pyridoxine and unison. Encouraged hydration and small frequent meals. Exercise induced bronchospasm 01/17/2025 [id number] Controlled with inhaler. Recent exacerbation due to anxiety. Avoid carboprost during delivery. Kwabena Calculation Initial Kwabena Date Initial Exam Date Initial Exam Provider Initial Ultrasound Date Last Menstrual Period Date Ultra Sound Weeks Gestation 01/15/2025 [place] [address] 01/20/2025 11/29/2024 7 Eighteen To Twenty Week Kwabena Update Ultra Sound Date Fundal Height At Umbil Quickening Date Ultra Sound Latest Weeks Gestation Final Kwabena Confirmed By Final Kwabena Confirmed Date Final Kwabena Date Ultra Sound Latest Days Gestation 0 [place] [address] 01/23/2025 09/05/19 26 0 Pre-magaly Flowsheet Flowsheet Date 01/14/2025 Pena Score Blood Edema Fundus Height Fundus Units Glucose Ketones Leukocytes Nitrite Labor Signs Protein Cervic Dilation Cervic Effacement Cervic Station none none negative none neg Type Weight in lbs Pre/Post Dialysis Refused [id number] BP Diastolic BP Location Tested BP Systolic BP Type 77 R arm 107 sitting Fetus Heart Rate Present Fetus Movement Comments Staci Haines is a 29y/o G [id number] presenting @ 6w4d dated by LMP: November [...]
--- OUTSIDE RECORDS SUMMARY | 2025-01-28 19:08 | XMS_ITS | Clinical Summary ---
Author Organization [facility] [employer] [place] Address [address] [place] [address] Care Team Providers Care Internal Control Specialist Name Role Phone Unavailable Primary Care Provider [...] 09/05/201901/24 Assessment & Plan (10/06/2021 12:38 PM REINSTATEMENT CLERK): Patient has non-specific depression on problem list or past encounter, a positive PHQ-9 or antidepressant on medication list. Every Word Counts - Depression ([facility]) Immunizations Immunization Administration Dates Next Due [...] Comments Blood Pressure 104/70 09/14/2020 1:02 PM REINSTATEMENT CLERK Pulse 85 09/14/2020 1:02 PM REINSTATEMENT CLERK Temperature 36.8 C (98.2 F) 09/14/2020 1:02 PM REINSTATEMENT CLERK Respiratory Rate 18 09/14/2020 1:02 PM REINSTATEMENT CLERK Oxygen Saturation 98% 09/14/2020 1:02 PM REINSTATEMENT CLERK Inhaled Oxygen Concentration - - Weight 109.3 kg (241 lb) 09/14/2020 1:02 PM REINSTATEMENT CLERK Height 162.6 cm (5' 4) 09/14/2020 1:02 PM REINSTATEMENT CLERK Body Mass Index 41.37 09/14/2020 1:02 PM REINSTATEMENT CLERK Plan of Treatment Health Maintenance Due Date [...] Advance Directives For more information, please contact: [phone] * Full Code (Latest Code Status on File) Date Activated Date Inactivated Comments 10/10/2019 11:11 AM 10/10/2019 2:57 PM
[2025-01-28 19:10] LABS: Alanine Aminotransferase 15 U/L (6-35); Albumin Level 4.2 g/dL (3.5-5.1); Alkaline Phosphatase 74 U/L (38-126); Anion Gap 9 mmol/L (4-12); Aspartate Amino Transferase 23 U/L (14-36); Bilirubin,Total 0.3 mg/dL (0.2-1.3); Blood Urea Nitrogen 8 mg/dL (7-17); Calcium 9.3 mg/dL (8.4-10.2); Carbon Dioxide 23 mmol/L (22-30); Chloride 105 mmol/L (98-107); Estimated CRCL calculation 150 ml/min; Estimated Glomerular Filt Rate > 60; Glucose 96 mg/dL (65-110); Potassium 3.8 mmol/L (3.4-5.0); Sodium 137 mmol/L (137-145)
[2025-01-28 19:19] LABS: INR 0.9; Prothrombin Time 12.9 Seconds (11.1-14.7)
[2025-01-28 19:22] LABS: Partial Thromboplastin Time 26.7 Seconds (22.3-36.8)
[2025-01-28 20:12] LABS: Add Urine Microscopic? YES; Appearance Urine Clear (Clear); Bacteria Urine None Seen /hpf; Bilirubin Urine Negative (Negative); Blood Urine 1+ (Negative); Color Urine Yellow (Yellow); Glucose Urine UA Negative (Negative); Ketones Urine Trace mg/dL (Negative); Leukocyte Esterase Ur Negative LEU/UL (Negative); Nitrate Urine Negative (Negative); Non Pathogenic Casts 0-2; Protein Urine Negative (Negative); Specific Grav Ur 1.019 (1.001-1.035); Squamous Epithelial Cell Urine None Seen /hpf (Few); WBC Urine 0-5 /hpf (0-3); pH Urine 6.5 (5.0-9.0)
[2025-01-28 20:30] VITALS: BP 126/70; PULSE 72; RESP 18; TEMP 36.6; O2SAT 99
[2025-01-28 22:00] VITALS: BP 130/76; PULSE 74; RESP 18; TEMP 36.3; O2SAT 99
== END 2025-01-28 22:00 | disposition home or self-care (01) ==
PROVIDERS: Physician Assistant; Emergency Provider Registered Nurse; PCP Physician Assistant
DX: O20.0 Threatened abortion (principal); Z3A.08 8 weeks gestation of pregnancy
CPT/HCPCS: 36415; 76801; 80053; 81001; 84702; 85025; 85461; 85610; 85730; 86850; 86900; 86901; 99284

== ENCOUNTER 2025-02-27 18:00 | Emergency (ER) | payer BC, SELFPAY ==
--- NOTE | 2025-02-27 18:10 | ED_ITS ---
HPI - Headache General Chief Complaint: GI Bleed Stated Complaint: Headache/Diarrhea Time Seen by Provider: 02/27/25 18:10 Source: patient Mode of arrival: ambulatory Limitations: no limitations History of Present Illness HPI Narrative: 29-year-old female presents with complaint of headache and diarrhea for 3 days. no abdominal pain. Reports mild fatigue but relates that to being . States she is approximately 13 weeks . Patient states on 1st day of diarrhea she noticed that she had a hemorrhoid. Since then has had intermittent bright red bleeding when having bowel movements. Started using preparation H. took 1 dose of Tylenol on Sunday and another dose yesterday. Has not taking any sxxa-qsc-soeexue pain medication today to treat headache. Denies nausea vomiting. No light sensitivity. No history of migraines but states in the past has had some headaches that cause light sensitivity. Patient is ambulatory with steady gait. All systems reviewed and negative except as noted above. Related Data Home Medications ?Medication ?Instructions ?Recorded ?Confirmed ?Last Taken ?Type sertraline 25 mg tablet 25 mg PO DAILY 02/02/25 02/02/25 Unknown History vit no.95-ferrous tablet PO 02/27/25 Unknown History fumarate 28 mg-folic acid 800 mcg tablet () Allergies Allergy/AdvReac Type Severity Reaction Status Date / Time No Known Allergies Allergy Verified 02/27/25 18:12 Review of Systems Review of Systems: CONSTITUTIONAL: Denies fever, chills, or sweats. EYES: Denies visual changes, redness, or discharge. ENT: Denies rhinorrhea, congestion, sore throat, or otalgia. CARDIOVASCULAR: Denies chest pain, palpitations, or edema. RESPIRATORY: Denies cough or dyspnea. GASTROINTESTINAL: Denies abdominal pain, nausea, vomiting, or diarrhea. reports bleeding hemorrhoid GENITOURINARY: Denies dysuria or hematuria. SKIN: Denies rash or itching. MUSCULOSKELETAL: Denies back pain, joint pain, or myalgia. NEUROLOGIC: Reports headache. Denies numbness, or weakness. PSYCHIATRIC: Denies anxiety or depression. All other systems reviewed are negative, except as documented in HPI. 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 Fracture of third metatarsal bone of left foot Fracture of fourth metatarsal bone of left foot Fracture of fifth metatarsal bone of left foot IUD (intrauterine device) in place Depression Surgical History Surgical History Hx of breast reduction, elective Family History Family History (Updated 02/02/25 @ 13:52 by ARTEMIO Yuen) Father Bipolar disorder Hypertension Asthma Mother Depression Social History Social History (Updated 02/02/25 @ 13:53 by ARTEMIO Yuen) Smoking status: Never smoker Second hand tobacco smoke exposure: No Alcohol intake: never Substance use: never Substance use type: does not use Do You Feel Safe in your Home?: Yes Lack of Transportation: No Lack of Food: Never True Current Housing: I Have Housing Concerned About Future Housing: No Difficulty Paying Gas/Electric Bills: No Difficulty Paying for Meds: No Currently Unemployed: No Education: High School Diploma/GED Difficulty w/ Childcare or Family Care: No Living arrangements: other Additional living arrangements comments: single but in relationship Occupation/Education: occupation 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 There is no relevant family history pertinent to the presenting complaint. Exam Narrative: GENERAL: This is a well-nourished, well-developed patient, in no apparent distress. HEAD: normocephalic, atraumatic. EYES: PERRL. Sclera clear/white. Vision is grossly intact. EARS: External ears normal, auditory canals clear and without drainage, TMs normal without perforation. Hearing grossly intact. NOSE: External nose normal with no obvious nasal discharge, nares without redne ss, no rhinorrhea. THROAT: Mucous membranes moist, posterior pharynx clear. NECK: Neck supple, non-tender without lymphadenopathy, masses or thyromegaly. CARDIOVASCULAR: Regular rate and rhythm without murmurs, gallops, or rubs. RESPIRATORY: Clear to auscultation. Breath sounds equal bilaterally. No wheezes, rales, or rhonchi. GASTROINTESTINAL: Abdomen soft, non-tender, nondistended. Bowel sounds are active. SKIN: warm, Dry, intact with no suspicious lesions or rash, good texture and turgor. NEURO: awake, alert, and oriented to person, place and time. There were no obvious focal neurologic abnormalities. EXTREMITIES: No joint tenderness, effusion, or edema noted. Patient deferred exam of hemorrhoid Course Course Level of Care: [facility] Visit Reevaluation(s) Reevaluation #1: headache pain 7/10 decreased to 5/10 Vital Signs Vital signs: reviewed MDM - Headache MDM Narrative Medical decision making narrative: patient is well-appearing, nontoxic. She is in no pain distress. Patient is talkative and laughing. Patient given Tylenol and Zofran at [facility] to treat headache As she has not taking any ckqy-vcr-feycbwy pain medication today. Recommend she continue preparation H to treat hemorrhoids. Start stool softeners due to hemorrhoid. Patient deferred rectal exam today. Explain to patient that Imodium is not safe with , increase hydration. Will go to the ER for any worsening of symptoms. Offered to transfer patient to ER for further evaluation and she did feel was necessary. States she has OBGYN appointment Sunday. Discharge Plan Discharge Clinical Impression: Hemorrhoid Headache in Qualifiers: Trimester: second trimester Qualified Code(s): O26.892 - Other specified related conditions, second trimester Patient Disposition: Home Condition: Stable Instructions: Antibiotic Form, Hemorrhoids (ED) Additional Instructions: Continue to use preparation H as directed on packaging. Start over the counter stool softeners. Do not sit on toilet for long periods of time. Take tylenol every 6 to 8 hours as needed for headache. Drink at least 64 ounces of water a day. For any worsening of your symptoms go to the ER. Patient Language: Ghanaian Prescriptions: No Action PNV cmb#95-ferrous fumarate-FA [] 28 mg iron- 800 mcg tablet PO sertraline 25 mg tablet 25 mg PO DAILY Follow-up/Referrals: UNKNOWN,DOCTOR [Primary Care Provider] - Time of Disposition: 18:50
[2025-02-27] MEDS: ACETAMINOPHEN 500 MG TABLET 1000 MG PO (18:26)
[2025-02-27] MEDS: ONDANSETRON HCL ODT 4 MG TABLET SUBLINGUAL (18:27)
== END 2025-02-27 18:51 | disposition home or self-care (01) ==
PROVIDERS: Emergency Provider Nurse Practitioner Family
DX: O26.892 Other specified pregnancy related conditions, second trimester (principal); K64.9 Unspecified hemorrhoids; Z3A.13 13 weeks gestation of pregnancy
CPT/HCPCS: 99213; A9270; G0463

== ENCOUNTER 2025-04-20 10:00 | Outpatient (CLI) | payer BC, SELFPAY ==
--- NOTE | ~2025-04-20 | US_ITS ---
EXAMINATION: US OB /maternal detail DATE: 04/20/2025 12:31 CDT INDICATION: Anatomy scan TECHNIQUE: Real-time transabdominal obstetric ultrasound. FINDINGS: There is a single intrauterine gestation in breech presentation. The placenta is anterior the tip of the anterior placenta measures approximately 3.8 cm from the inte rnal cervical os. The cervix measures 3.1 cm in length. cardiac activity and movement is noted with a heart rate of 136 beats per minute. Anatomic parameters are as follows The bladder is visualized and is unremarkable. A three-vessel cord is present. Cord insertion is demonstrated to be on the midline on the submitted images. Bilateral kidneys are present without hydronephrosis. The diaphragm is poorly visualized for which follow-up examination is needed. The cervical, thoracic and lumbar spines are covered in their entirety. choroid plexi are visualized, and unremarkable. Lateral ventricles are visualized and are unremarkable. The falx is visualized. The cerebellum is visualized measuring 18.2 mm, and is sonographically unremarkable. The cisterna magna measures 5.7 mm in anterior to posterior dimension (normal measurement is 2 to 10 mm). The nuchal fold measures 4.8 mm (greater than 6 mm is considered abnormal). Cine of the four-chamber heart is visualized and is anatomic. Both the right and left ventricular outflow tracts are poorly identified for which follow-up exami nation is recommended.. Images of the arms, hands, legs and feet were performed and appear grossly unremarkable. Evaluation of the upper lip and nose were performed and confirms their continuity. The following biometric data were obtained: Biparietal diameter (BPD): 4.7 cm; head circumference (HC): 18.1 cm; abdominal circumference (AC): 15.1 cm; femur length (FL): 3.3 cm. These measurements are concordant. Estimated weight is 346 g +/- 52 g, which correlates with the 47th percentile when 09/05/2025 is used as estimated date of delivery. As single measurements, these parameters are each equal to the following estimated gestational ages: BPD: 20 weeks 2 days. HC: 20 weeks 3 days. AC: 20 weeks 2 days. FL: 20 weeks 2 days. estimated gestational age based solely on measurements from this exam is 20 weeks 2 days +/- 1 week 3 days. IMPRESSION: Single intrauterine gestation with an approximate gestational age of 20 weeks and 2 days. Estimated d ue date by ultrasound is 09/05/2025. Limited visualization of the right and left ventricular outflow tracts on the submitted images. Limited visualization of the diaphragm on the submitted images Follow-up examination to include these structures is recommended, as is a repeat examination of the p osterior cranial fossa, to include the cerebellum, cisterna magnum, and nuchal fold. Remainder of anatomy scan is within normal limits, as detailed above. Reviewed, dictated and finalized at location A. IMPRESSION: Single intrauterine gestation with an approximate gestational age of 20 weeks a nd 2 days. Estimated due date by ultrasound is 09/05/2025. Limited visualization of the right and left ventricular outflow tracts on the s ubmitted images. Limited visualization of the diaphragm on the submitted images Follow-up examination to include these structures is recommended, as is a repea t examination of the posterior cranial fossa, to include the cerebellum, cister na magnum, and nuchal fold. Remainder of anatomy scan is within normal limits, as detailed above.
== END 2025-04-20 10:01 | disposition home or self-care (01) ==
PROVIDERS: PCP Obstetrics & Gynecology; Visit Provider Obstetrics & Gynecology
DX: Z34.90 Encounter for supervision of normal pregnancy, unspecified, unspecified trimester (principal)
CPT/HCPCS: 76805

== ENCOUNTER 2025-08-13 16:38 | Observation (INO) | payer OTHER, SELFPAY ==
[2025-08-13 18:03] VITALS: BMI 46.4
--- NOTE | 2025-09-09 09:10 | PM.OBTRLD ---
OB - Triage/Final Diagnosis Visit Information Comments/Additional reasons for admission: I have assessed the risk for this patient, Staci Tabor, and determined that she would benefit from observation care. Final Diagnosis (1) False labor: Code(s): O47.9 - False labor, unspecified Status: Acute
== END 2025-08-13 18:15 | disposition home or self-care (01) ==
PROVIDERS: Admitting Provider Obstetrics & Gynecology; Visit Provider Obstetrics & Gynecology
DX: O47.03 False labor before 37 completed weeks of gestation, third trimester (principal); Z3A.36 36 weeks gestation of pregnancy
CPT/HCPCS: G0378; G0379

== ENCOUNTER 2025-08-23 22:30 | Observation (INO) | payer OTHER, SELFPAY ==
[2025-08-24 00:50] VITALS: BP 124/80; PULSE 93
== END 2025-08-24 01:27 | disposition home or self-care (01) ==
PROVIDERS: Admitting Provider Obstetrics & Gynecology; Visit Provider Obstetrics & Gynecology
DX: O47.9 False labor, unspecified (principal)
CPT/HCPCS: 59025; G0378; G0379

== ENCOUNTER 2025-08-28 09:39 | Outpatient (CLI) | payer OTHER, SELFPAY ==
--- NOTE | ~2025-08-28 | US_ITS ---
EXAMINATION: US OB follow up DATE: 08/28/2025 10:11 INDICATION: Large for gestational age during third trimester TECHNIQUE: Real-time ultrasound of the pelvis was performed. The interpreting radiologist was not present for the study. COMPARISON: None. FINDINGS: There is a single living fetus in vertex presentation. The placenta is anterior and not low-lying. heart rate is 148 beats per minute (bpm). The amniotic fluid index is 18.2 cm, which is normal. (5th%-95%: 7.3-23.9 cm at 38 weeks estimated gestational age). The following biometric data were obtained: BPD: 9.7 cm -> 39 weeks 5 days Head circumference: 34.3 cm -> 39 weeks 4 days Abdominal circumference: 36.1 cm -> 40 weeks 0 days Femur length: 7.7 cm -> 39 weeks 3 days These measurements are concordant. Head circumference to abdominal circumference ratio: 0.95 (normal range 0.89-1.04). Estimated weight: 3894 g (+/-) 584 g or 8 lbs. 9 oz. (+/-) 1 lb. 5 oz. IMPRESSION: 1. Single living fetus in vertex presentation with heart rate of 148 bpm. 2. Normal amniotic fluid index of 18.2 cm. 3. Estimated weight is 87th percentile by Hadlock criteria when 09/05/2025 is used as the estimated date of delivery (SIMIN). Please correlate with clinical information or earlier ultrasounds for most accurate SIMIN. Reviewed, dictated and finalized at location A. [employer]
== END 2025-08-28 09:40 | disposition home or self-care (01) ==
LOC: GOSHIMG 09:43
PROVIDERS: PCP Obstetrics & Gynecology; Visit Provider Obstetrics & Gynecology
DX: Z34.90 Encounter for supervision of normal pregnancy, unspecified, unspecified trimester (principal); Z3A.00 Weeks of gestation of pregnancy not specified
CPT/HCPCS: 76816